=== PATIENT | female | born 1955 | race Caucasian/White ===

== ENCOUNTER 2016-10-29 11:24 | Emergency (ER) | payer MEDICAID, MEDICARE ==
[2016-10-29] MEDS: NALOXONE 0.4 MG/1 ML VIAL IVP STA (11:47)
--- NOTE | 2016-10-29 11:47 | Emergency Department Record ---
History of Present Illness - General Chief Complaint: Altered Mental Status Stated Complaint: DECREASE LOC Time Seen by Provider: 10/29/16 11:32 Source: Patient, Family, EMS Mode of Arrival: EMS Limitations: No limitations - History of Present Illness Initial Comments: 61 yo female presents with decreased level of consciousness. Onset time is not known at this time. The patient's significant other states he woke up around 5: 50am. The patient was in her LazyBoy and grunted a few times. The significant other thought she was sleepy. He rechecked her around 9:30am. She was banging her remote on the chair for attention. She was not verbal. She was reported as last normal last night. She did not use her CPAP last night. Her PCP is Shea Barraza at [facility]. Her Accucheck was 219 by EMS. She is on [place]. No report of OD. MD Complaint: Altered mental status -: Awoke with symptoms Severity: Severe Consistency: Constant Context: Unknown Associated Symptoms: Other (Non verbal) - Paloma Coma Scale Eye Response: (2) Open to pain Motor Response: (5) Localizes to pain Verbal Response: (2) Incomprehsible sounds Lulú Total: 9 (Intact gag, non labored) - Symptoms of Stroke Symptom Onset Unknown: No - Related Data Home Medications Medication Instructions Recorded Confirmed Last Taken Aspirin [Ecotrin] 81 mg PO DAILY 07/02/15 10/29/16 1 Day Ago Ergocalciferol (Vitamin D2) 2,000 unit PO DAILY tab 11/04/15 10/29/16 1 Day Ago [Vitamin D2] Hydroxyzine Pamoate [Vistaril] 25 mg PO Q6H cap NS 05/04/16 10/29/16 1 Day Ago Metoprolol Succinate [Toprol Xl] 25 mg PO QD tab 05/04/16 10/29/16 1 Day Ago Previous Rx's Medication Instructions Recorded Bumetanide 2 mg PO DAILY #90 tablet 07/02/15 Allergies Allergy/AdvReac Type Severity Reaction Status Date / Time No Known Allergies Allergy Unverified 07/26/16 12:53 Review of Systems ROS unobtainable: Due to mental status Past Medical History - SOCIAL HISTORY Smoking Status: Former smoker - RESPIRATORY Hx Respiratory Disorders: No - CARDIOVASCULAR Hx Cardio Disorders: No - NEURO Hx Neuro Disorders: No - GI Hx GI Disorders: No - Hx Genitourinary Disorders: No - ENDOCRINE Hx Endocrine Disorders: Yes Hx Diabetes: Yes Hx Thyroid Disease: Yes - MUSCULOSKELETAL Hx Musculoskeletal Disorders: Yes Hx Back Injury: Yes - PSYCH Hx Psych Problems: No - HEMATOLOGY/ONCOLOGY Hx Hematology/Oncology Disorders: Yes Hx Blood Disorders: Yes (low platelette) Hx Bruising: Yes Family Medical History Hx Cancer: Mother Hx Heart Disease: Father Physical Exam - General General Appearance: No acute distress, Other (No verbal or moans) Limitations: Altered mental status - Head Head exam: Atraumatic, Normocephalic, Normal inspection Head exam detail: negative: Contusion, Aaron's sign, General tenderness, Hematoma - Eye Eye exam: PERRL. negative: Conjunctival injection, Periorbital swelling, Scleral icterus Pupils: Miosis (2mm but not pin point). negative: Irregular - ENT ENT exam: Normal exam, Mucous membranes moist, Normal external ear exam, Normal orophraynx, TM's normal bilaterally Ear exam: Normal external inspection. negative: External canal tenderness Nasal Exam: Normal inspection. negative: Discharge, Sinus tenderness Mouth exam: Normal external inspection, Tongue normal Teeth exam: Normal inspection. negative: Dental caries Throat exam: Normal inspection, Other (Intact gag). negative: Tonsillar erythema, Tonsillar exudate - Neck Neck exam: Normal inspection, Full ROM. negative: Meningismus, Tenderness - Respiratory Respiratory exam: Normal lung sounds bilaterally, Other (respirations are generally non labored). negative: Accessory muscle use, Prolonged expiratory, Respiratory distress, Wheezes - Cardiovascular Cardiovascular Exam: Regular rate, Normal rhythm, Normal heart sounds - GI/Abdominal GI/Abdominal exam: Soft, Other (Morbid obesity). negative: Distended, Guarding - Rectal Rectal exam: Deferred - exam: Abnormal external exam, Other (no swelling or erythema) - Extremities Extremities exam: Normal inspection, Full ROM, Normal capillary refill. negative: Tenderness - Neurological Neurological exam: Altered. negative: Alert, Motor sensory deficit ( Generalized weakness, she withdraws to pain in all 4 extremities, gaze is symmetric, tongue is midline, gag is intact, cough is intact), Normal gait, Oriented X3 - Psychiatric Psychiatric exam: Depressed. negative: Agitated, Anxious, Normal affect, Normal mood - Skin Skin exam: Other (chronic skin changes of the abdomen due to large panus and chronic stasis changes of the legs, no visiblle cellulitis). negative: Cyanosis , Diaphoretic, Erythema, Mottled Course - Reevaluation(s) Reevaluation #1: Accu Check 219 prior to arrival Gag intact but poorly responsive Narcan ordered Oxygen 99% room air Orders placed Unknown onset time per family with the patient. 10/29/16 11:48 Reevaluation #2: CBC and UA reviewed. NO acute changes Patient is in CT. Some delay due to AMS and large body habitus. EKG 11:38 NSR rate 95, intervals QT 506, ST no acute changes. 10/29/16 12:07 ABG 7.43 PCO2 33 PO2 97 Lactic acid 6.2 CR 1.8 98.4 Temp No response to Narcan 10/29/16 12:17 Reevaluation #3: I [facility]EENA Radiology. No acute findings on the CT scan. [facility] will be call for transfer for Neuro evaluation. 10/29/16 12:29 Reevaluation #4: On exam non verbal Coughs and protects airway with gag. Stroke Dr Gifford paged by [facility]. 10/29/16 12:33 Reevaluation #5: I BEENA Gifford and Dr Metzger of [facility] They accept ER to ER The patient is protecting her airway at this time with cough and gag I discussed risk and benefits of transfer with or without EET Given she had demonstrated stability and she is protected airway she will go ACLS This will allow Stroke to complete a full neuro examination Family agrees. 10/29/16 12:51 The patient was given a bed at [facility] in the ICU Report called TSH 1.7 10/29/16 13:30 10/29/16 13:51 Medical Decision Making - Lab Data Result diagrams: 10/29/16 10:57 10/29/16 10:57 Critical Care Time Critical Care Time: Yes Total Critical Care Time: 60 Disposition Disposition: Transfer Clinical Impression: Encephalopathy acute Altered mental status, unspecified Qualifiers: Altered mental status type: stupor Qualified Code(s): R40.1 - Stupor Disposition: Acute Care Hospital Transfer Transfer To: [facility] Reason For Transfer: AMS, Encephalopathy Accepting Physician: Domenica Time Discussed w/Accepting Physician: 12:50 Condition: (3) Guarded Forms: Patient Portal Access Time of Disposition: 12:51
[2016-10-29 11:56] LABS: BASO % 0.8 % (0-6); EOS % 3.3 % (0-6); GRAN % 60.2 % (47-80); HEMATOCRIT 33.6 % (35.0-47.0); HEMOGLOBIN 11.1 gm/dl (11.6-16.0); MEAN CELL VOLUME 87.7 fl (81-97); MEAN PLATELET VOLUME 12.5 fl (7.4-10.4); MONO % 8.7 % (0-9); RED BLOOD COUNT 3.83 M/uL (3.80-5.40); RED CELL DISTRIBUTION WIDTH 14.8 % (11.5-14.5); URINE APPEARANCE CLEAR; URINE BILIRUBIN NEGATIVE (NEGATIVE); URINE BLOOD MODERATE (NEGATIVE); URINE COLOR YELLOW; URINE GLUCOSE (UA) NEGATIVE (NEGATIVE); URINE KETONE NEGATIVE (NEGATIVE); URINE LEUKOCYTE ESTERASE NEGATIVE (NEGATIVE); URINE NITRITE NEGATIVE (NEGATIVE); URINE PROTEIN NEGATIVE (NEGATIVE); WHITE BLOOD COUNT W/O DIFF 4.9 K/uL (4.2-12.2)
[2016-10-29 12:02] LABS: MEAN CORPUSCULAR HEMOGLOBIN 28.9 pg (27-33); PLATELET COUNT 57 K/uL (130-400)
[2016-10-29 12:05] LABS: URINE BACTERIA FEW; URINE RBC >50 (NONE SEEN); URINE WBC 0 - 2 (0-2/hpf)
[2016-10-29 12:05] LABS: ARTERIAL BLD GAS O2 SATURATION 98.3 % (95-98); ARTERIAL BLOOD GAS BASE EXCESS -1.2 mmol/L (-2 - 3); ARTERIAL BLOOD GAS HCO3 22.1 mmol/L (18-23); ARTERIAL BLOOD GAS PCO2 33.6 mmHg (35-48); ARTERIAL BLOOD GAS pH 7.43 (7.35-7.45); CARBOXYHEMOGLOBIN 0.8 % (0-1.5); METHEMOGLOBIN 0.6 % (0.0-1.5); O2 HEMOGLOBIN 96.9 % vol (94-99); TOTAL HEMOGLOBIN 11.4 g/dl (11.6-16)
[2016-10-29 12:07] LABS: ALLEN TEST NOT DONE
[2016-10-29 12:09] LABS: LACTIC ACID 6.2 mmol/L (0.7-2.1)
[2016-10-29 12:10] LABS: ALB/GLOB RATIO 1.3 (1.1-1.8); ALBUMIN 3.6 gm/dL (3.5-5.0); ANION GAP 15.2 (7-16); BILIRUBIN,TOTAL 1.21 mg/dL (0.2-1.3); CARBON DIOXIDE 22.8 mmol/L (22-30); CREATININE 1.8 mg/dL (0.52-1.04); TOTAL PROTEIN 6.3 gm/dL (6.3-8.2)
[2016-10-29 12:23] LABS: CKMB 0.3 ug/L (0-6); CREATINE PHOSPHOKINASE 46 U/L (30-135)
[2016-10-29 12:24] LABS: TROPONIN I < 0.012 ng/mL (0.00-0.034)
[2016-10-29] MEDS: 0.9 % SODIUM CHLORIDE 1,000 ML BAG IV ONE (12:26)
[2016-10-29] MEDS: NALOXONE HCL 1 MG/ML SYR IVP ONE (12:32)
[2016-10-29 12:35] LABS: INR 1.12; PARTIAL THROMBOPLASTIN TIME 19.7 SECONDS (24.5-39.1); PROTHROMBIN TIME (PATIENT) 12.7 SECONDS (9.5-12.1)
[2016-10-29 12:41] LABS: THYROID STIMULATING HORMONE 1.73 uIU/ml (0.465-4.68)
--- NOTE | 2016-11-02 09:57 | CT SCAN REPORT ---
EXAM: CT OF THE HEAD WITHOUT CONTRAST HISTORY: PATIENT FOUND UNRESPONSIVE. POOR HISTORIAN. TECHNIQUE: Routine noncontrast CT examination of the head was performed. Comparison: CT of the head without contrast dated 05/17/14. FINDINGS: The examination is mildly limited by increased image noise. There is mild dilatation of the subarachnoid spaces consistent with mild age related atrophy. The ventricles are not enlarged. No new area of abnormally increased or decreased attenuation is noted throughout the brain substance. No abnormal extraaxial fluid collection nor skull fracture is seen. There is mucosal thickening in several ethmoid air cells. In addition, there is opacification of a single posterior superior right ethmoid air cell measuring 12 x 10 mm. This air cell appears slightly expanded. This may relate to mucocele, polyp or sinusitis. The orbits as visualized are unremarkable. Metallic piercing jewelry is noted in the superolateral left periorbital region. IMPRESSION: 1. NO CT EVIDENCE OF ACUTE MAJOR VESSEL INFARCT, INTRACRANIAL HEMORRHAGE, MASS , NOR SKULL FRACTURE. 2. INFLAMMATORY CHANGES SCATTERED WITHIN SEVERAL ETHMOID AIR CELLS. 3. OPACIFICATION OF A RIGHT ETHMOID AIR CELL WHICH MAY BE SLIGHTLY EXPANDED. DIAGNOSTIC CONSIDERATIONS INCLUDE SINUSITIS, MUCOCELE, OR LESS LIKELY POLYP. JOB NUMBER: [id number] [facility]
== END 2016-10-29 13:11 | disposition short-term general hospital (02) ==
LOC: ER 11:24
DX: G93.40 Encephalopathy, unspecified (principal); R40.1 Stupor; R53.1 Weakness; E11.9 Type 2 diabetes mellitus without complications; D69.6 Thrombocytopenia, unspecified; E07.9 Disorder of thyroid, unspecified
CPT/HCPCS: 96376; 99291 ×2; 96374; 82550; 83605; 83735; 85025; 85730; 85610; 82375; 82553; 84484; 80053; 81001; 82803; 84443; 70450; 36600; 93005; 93010; G0480; 80320; J2310; J7030

== ENCOUNTER 2017-02-10 08:29 | Day surgery (SDC) | payer MEDICARE ==
[2017-02-10] MEDS ORDERED: LIDOCAINE 2% MDV (20MG/ML) 20ML VIAL IV ONE (14:00)
[2017-02-10] MEDS ORDERED: MIDAZOLAM HCL 2MG/2ML VIAL IV ONE (14:00)
[2017-02-10] MEDS ORDERED: PROPOFOL 10 MG/ML VIAL IV ONE (14:00)
[2017-02-10] MEDS ORDERED: FENTANYL PF 100MCG/2ML VIAL IV ONE (14:00)
--- NOTE | 2017-02-12 12:02 | Operative Note ---
DATE OF SURGERY: 02/10/17 OPERATION: COLONOSCOPY with cold snare polypectomy x2 and hemoclip x1 to rectal polypectomy site. #. Duodenal ulcer with surrounding superficial duodenal ulcerations. #. Portal gastropathy. #. Small esophageal varices. #. Gastritis. PROCEDURE: After informed consent was obtained from the patient, she was placed in the left lateral decubitus position in the endoscopy suite, sedated and monitored by the department of anesthesia. A well-lubricated [id number] gastroscope was placed in the posterior oropharynx and under direct visualization passed to the proximal esophagus. The endoscope was advanced through the proximal, mid, and distal esophagus. There were small varices in the distal esophagus. No stigmata of recent hemorrhage noted. There were 3-4 columns noted. The gastric body demonstrated normal distensibility. There were flecks of heme and changes consistent with mild portal hypertensive gastropathy and gastritis. No ulcers or mass lesions were seen. The duodenal bulb and sweep were inspected. At the apex of the bulb, there was a medium- to large-sized ulcer of medium depth and surrounding erythematous edges. There were also several other superficial duodenal bulb ulcerations. No active blood or fresh stigmata of recent hemorrhage identified. The duodenal sweep is unremarkable. J-turn views of the proximal stomach demonstrated portal gastropathy and gastritis. No obvious cardia or fundal varices were readily identified. The endoscope was then straightened. No biopsies were obtained given the patient's history of thrombocytopenia. Digital rectal exam was unremarkable. A well-lubricated [id number] colonoscope was inserted into the rectum and advanced to the cecum. Preparation was fair to good. The cecum was unremarkable. There was a 4 mm sessile polyp in the ascending colon removed with a cold snare with minimal bleeding noted at the site. The remainder of the ascending colon, transverse colon, descending colon, and sigmoid colon were unremarkable. There was a 4-5 mm sessile polyp in the rectum removed with a cold snare. There was a small amount of oozing at the site ; however, a hemoclip was applied to the site. There was no persistent bleeding noted after that. The remainder of the rectum was unremarkable in forward and in J-turn views. The endoscope was straightened, the rectal ampulla deflated, and the endoscope was removed. RECOMMENDATIONS: The patient should start a proton pump inhibitor such as Protonix 40 mg daily. I will have her undergo stool tests for H pylori. She should undergo repeat upper endoscopy in 1 year and will require repeat colonoscopy in 3-5 years. As always, thank you for allowing me to participate in the healthcare of your patients. CC: MARQUITA Godoy
== END 2017-02-10 10:46 | disposition home or self-care (01) ==
LOC: HOP 08:29
PROVIDERS: ATTEND Internal Medicine Gastroenterology
DX: Z86.010 Personal history of colon polyps (principal); D12.8 Benign neoplasm of rectum; K63.5 Polyp of colon; K29.70 Gastritis, unspecified, without bleeding; K26.9 Duodenal ulcer, unspecified as acute or chronic, without hemorrhage or perforation; K31.9 Disease of stomach and duodenum, unspecified; R56.9 Unspecified convulsions; E11.9 Type 2 diabetes mellitus without complications; I10 Essential (primary) hypertension; E03.9 Hypothyroidism, unspecified; E78.00 Pure hypercholesterolemia, unspecified
CPT/HCPCS: 45385; 43235; 00810; 88305; J3010

== ENCOUNTER 2017-04-11 14:53 | Inpatient (IN) | payer MEDICARE ==
--- NOTE | 2017-04-11 15:08 | Emergency Department Record ---
History of Present Illness - General Chief complaint: Lower Extremity Pain Stated complaint: LEG PAIN AND SWELLING Time Seen by Provider: 04/11/17 14:58 Source: Patient Mode of Arrival: Ambulatory Limitations: No limitations - History of Present Illness Initial comments: 62 yo female presents with right leg swelling, redness that started on Tuesday. She denies trauma. She does have chronic swelling of both legs but this swelling is beyond the normal. She was recently hospitalized at [facility] for issues related to her chronic hepatic and renal disease. No fevers. No cough, chest pain or shortness of breath. MD Complaint: Extremity pain, Extremity swelling -: Days(s) (3) Location: Right History of Same: Yes Radiation: Distal (lateral) Quality: Aching Consistency: Constant Improves with: Nothing Worsens with: Nothing, Other (She is able to ambulate on the leg) - Related Data Home Medications Medication Instructions Recorded Confirmed Last Taken Aspirin [Ecotrin] 81 mg PO DAILY 07/02/15 04/11/17 1 Day Ago ~10/28/16 Ergocalciferol (Vitamin D2) 2,000 unit PO DAILY tab 11/04/15 04/11/17 1 Day Ago [Vitamin D2] ~10/28/16 Allergies Allergy/AdvReac Type Severity Reaction Status Date / Time No Known Allergies Allergy PT UNSURE Unverified 04/11/17 14:16 OF REACTION Review of Systems Constitutional: Denies: Chills, Fever, Malaise, Weakness Eyes: Denies: Eye discharge ENT: Denies: Congestion, Throat pain Respiratory: Denies: Cough, Dyspnea, Hemoptysis, Stridor, Wheezes Cardiovascular: Denies: Chest pain, Palpitations, Syncope Endocrine: Denies: Fatigue Gastrointestinal: Denies: Abdominal pain, Diarrhea, Nausea, Vomiting Genitourinary: Denies: Dysuria, Urgency Musculoskeletal: Denies: Arthralgia, Back pain, Joint swelling, Neck pain Skin: Reports: Change in color Neurological: Denies: Headache, Numbness, Vertigo, Weakness Psychiatric: Denies: Anxiety Hematological/Lymphatic: Denies: Easy bleeding, Easy bruising, Swollen glands Past Medical History - SOCIAL HISTORY Smoking Status: Former smoker - RESPIRATORY Hx Respiratory Disorders: Yes Hx Sleep Apnea: Yes Hx of CPAP: Yes - CARDIOVASCULAR Hx Cardio Disorders: Yes Hx Cardiac Cath: Yes Hx Hypertension: Yes Hx Palpitations: Yes ("racing heart") Comment:: high cholesterol - NEURO Hx Neuro Disorders: Yes Hx Neuropathy: Yes Hx Seizures: Yes - GI Hx GI Disorders: Yes Hx Liver Disease: Yes (fatty liver) Hx of Polyps: Yes - Hx Genitourinary Disorders: No - ENDOCRINE Hx Endocrine Disorders: Yes Hx Diabetes: Yes Hx Thyroid Disease: Yes - MUSCULOSKELETAL Hx Musculoskeletal Disorders: Yes Hx Arthritis: Yes Hx Back Injury: Yes Comment:: spinal stenosis, herniated disk lower lumbar - PSYCH Hx Psych Problems: Yes Hx Anxiety: Yes - HEMATOLOGY/ONCOLOGY Hx Hematology/Oncology Disorders: Yes Hx Blood Disorders: Yes (low platelet) Hx Bruising: Yes Hx Blood Transfusions: No Family Medical History Hx Cancer: Mother Hx Heart Disease: Father Physical Exam - General General Appearance: Alert, Oriented x3, Cooperative, No acute distress Limitations: No limitations - Head Head exam: Normal inspection - Eye Eye exam: Normal appearance, PERRL. negative: Conjunctival injection, Scleral icterus - ENT ENT exam: Normal exam Ear exam: Normal external inspection Nasal Exam: Normal inspection Mouth exam: Normal external inspection Teeth exam: Normal inspection - Neck Neck exam: Normal inspection, Full ROM. negative: Tenderness - Respiratory Respiratory exam: Normal lung sounds bilaterally. negative: Respiratory distress, Rhonchi, Stridor, Wheezes - Cardiovascular Cardiovascular Exam: Regular rate, Normal rhythm, Normal heart sounds - GI/Abdominal GI/Abdominal exam: Soft. negative: Tenderness - Rectal Rectal exam: Deferred - exam: Deferred - Extremities Extremities exam: Calf tenderness, Normal capillary refill, Pedal edema, Tenderness. negative: Normal inspection Image of Full Body: 1 - mid to distal RLE warmth, redness, swelling, no draingage, intact foot flexion and extension without pain, no blisters, chronic changes of edema and stasis as well. No blisters. - Back Back exam: Denies: CVA tenderness (R), CVA tenderness (L) - Neurological Neurological exam: Alert, Oriented X3 - Psychiatric Psychiatric exam: negative: Agitated, Anxious - Skin Skin exam: Erythema Course - Reevaluation(s) Reevaluation #1: Vitals reviewed No fever, tachycardia, hypoxia 04/11/17 15:04 04/11/17 16:54 Prelim US negative. Will review the final as well. Reevaluation #2: Multiple attempts by multiple staff for labs and IV attempted without success. I did discuss the options with Dr Montez. [facility] has a contract for PICC line services. They will be contacted. The patient is stable for IM medications as a bridge until PICC line is established. She will be admitted for continued antibiotics until improved. No fever, no tachycardia. 04/11/17 17:39 Reevaluation #3: The hospital PICC line service was contacted and will provide the service. They will call back with a time frame available. In the meantime, the patient will be admitted with orders for IM Clindamycin Qh8 until PICC line is established. 04/11/17 17:56 04/11/17 17:58 Reevaluation #4: Accu Check is 94 04/11/17 18:09 Medical Decision Making - Lab Data Result diagrams: 04/11/17 14:58 04/11/17 14:58 Disposition Disposition: Admit Clinical Impression: Cellulitis Qualifiers: Site of cellulitis: extremity Site of cellulitis of extremity: lower extremity Laterality: right Qualified Code(s): L03.115 - Cellulitis of right lower limb Disposition: Still a Patient at [facility] Decision to Admit: Admit from ER Decision to Admit Date: 04/11/17 Decision to Admit Time: 17:43 Condition: (2) Stable Forms: Patient Portal Access Time of Disposition: 17:43
[2017-04-11] MEDS ORDERED: CLINDAMYCIN 600MG/4ML VIAL 600 MG in 0.9 % SODIUM CHLORIDE 100ML 100 ML IV ONE (17:56)
[2017-04-11] MEDS ORDERED: METOPROLOL SUCC 25 MG TAB.ER PO SCH (19:50)
[2017-04-11] MEDS ORDERED: NYSTATIN 15 GM TUBE TOP PRN (19:50)
[2017-04-11] MEDS: CLINDAMYCIN 600MG/4ML VIAL 600 MG in 0.9 % SODIUM CHLORIDE 100ML 100 ML IV SCH ×2 (19:56→20:24)
[2017-04-11] MEDS: LEVETIRACETAM 500 MG TABLET PO SCH (21:20)
[2017-04-11] MEDS: ATORVASTATIN 20 MG TABLET PO SCH (21:21)
[2017-04-11] MEDS: DICLOFENAC SODIUM 4 GM TP SCH (21:21)
[2017-04-11] MEDS: HYDROXYZINE PAMOATE 25 MG CAPSULE PO SCH (21:22)
[2017-04-11] MEDS: RIFAXIMIN 550 MG TABLET PO SCH (21:22)
[2017-04-11] MEDS: GABAPENTIN 300 MG CAPSULE PO SCH (21:22)
[2017-04-11] MEDS: OXYCODONE HCL 5 MG TABLET PO PRN (21:23)
[2017-04-11] MEDS: LEVEMIR FLEXTOUCH 100 UNIT/ML INSULIN PEN SQ SCH (21:34)
[2017-04-11] MEDS ORDERED: LACTULOSE 20 GM/30 ML UDC PO SCH (22:00)
[2017-04-11] MEDS ORDERED: ZINC OXIDE 28.35 GM TUBE TOP PRN (22:44)
[2017-04-12] MEDS ORDERED: CLINDAMYCIN 600MG/4ML VIAL 600 MG in 0.9 % SODIUM CHLORIDE 100ML 100 ML IV SCH (02:00)
[2017-04-12] MEDS: HEPARIN SODIUM FLUSH 100 UNITS/ML SYR 5ML IVP PRN ×4 (04:02→20:19)
[2017-04-12] MEDS: 0.9 % SODIUM CHLORIDE 10ML SYR IVP PRN ×5 (04:03→20:19)
[2017-04-12] MEDS: LEVOTHYROXINE SODIUM 75 MCG TABLET PO SCH (06:42)
[2017-04-12] MEDS ORDERED: LACTULOSE 20 GM/30 ML UDC PO SCH ×3 (07:00→12:00)
--- NOTE | 2017-04-12 07:06 | History & Physical ---
History of Present Illness - Date of Service Date of Service for History & Physical: 04/12/17 - History of Present Illness Admitting Diagnosis: right leg cellulitis History of Present Illness: 62yo female with CC of right lower extremity redness and swelling. She has a history of ODEN one episode of toxic metabolic encephalopathy that lead to seizure in October of 2016, T2DM, chronic ITP, CKD stage 3, chronic lower extremity edema, morbid obesity, osteoarthritis b/l knee, chronic lower back pain. Patient presented to the ED after 36 hours of right lower extremity redness and swelling. She says it started Tuesday morning and got progressively worse. Was not painful to walk on but was tender to the touch. Her home care nurse noted it and recommended she go to [facility] to be evaluated. They sent her over to ED to further evaluate possibility of a DVT. While in the ED, patient underwent venous doppler that was negative for DVT. ED was unable to gain venous access for labs after multiple attempts. Patient was afebrile with normal HR and BP. She was started on Clindamyacin IM and PICC line was ordered. She was admitted for RLE cellulitis 04/12/17- Patient states her leg is doing much better today. She says the redness has decreased significantly in size. The leg is no longer tender to palpation as it had been. She denies trauma to the leg but does have chronic pedal edema. Just got orders for tubigrips via home health care but did not have a chance to start wearing them. She denies fevers, chills, N/V, fatigue. Last bout of cellulitis was also in the RLE about 15 months ago. PCP: [facility] Screening - Travel/Exposure Within Last 30 Days Have you traveled within the last 30 days?: No - Travel/Exposure Within Last Year Have you traveled outside the [place] in the last year?: No Review of Systems Constitutional: Denies: Chills, Fever, Malaise, Weakness Eyes: Denies: Eye discharge ENT: Denies: Congestion, Throat pain Respiratory: Denies: Cough, Dyspnea, Hemoptysis, Stridor, Wheezes Cardiovascular: Denies: Chest pain, Palpitations, Syncope Endocrine: Denies: Fatigue Gastrointestinal: Denies: Abdominal pain, Diarrhea, Nausea, Vomiting Genitourinary: Denies: Dysuria, Urgency Musculoskeletal: Denies: Arthralgia, Back pain, Joint swelling, Neck pain Skin: Reports: Change in color Neurological: Denies: Headache, Numbness, Vertigo, Weakness Psychiatric: Denies: Anxiety Hematological/Lymphatic: Denies: Easy bleeding, Easy bruising, Swollen glands Past Medical History - SOCIAL HISTORY Smoking Status: Former smoker Alcohol Use: None Drug Use: None - RESPIRATORY Hx Respiratory Disorders: Yes Hx Sleep Apnea: Yes Hx of CPAP: Yes - CARDIOVASCULAR Hx Cardio Disorders: Yes Hx Abnormal EKG: Yes Hx Cardiac Cath: Yes Hx Chest Pain: Yes Hx CHF: No Hx Deep Vein Thrombosis: No Hx Edema: Yes Hx Heart Attack: No Hx Hypertension: Yes Hx Irregular Heartbeat: Yes Hx Palpitations: Yes ("racing heart") Hx Pacemaker/Defib: No Hx Vascular Disease: Yes Comment:: high cholesterol - NEURO Hx Neuro Disorders: Yes Hx Neuropathy: Yes Hx Seizures: Yes - GI Hx GI Disorders: Yes Hx Hiatal Hernia: (umbilibal hernia) Hx Liver Disease: Yes (fatty liver) Hx Ulcer: Yes Hx Wt Loss/Wt Gain: Yes Hx of Polyps: Yes - Hx Genitourinary Disorders: No Hx Renal Disease: Yes Hx UTI: Yes - ENDOCRINE Hx Endocrine Disorders: Yes Hx Diabetes: Yes Hx Thyroid Disease: Yes - MUSCULOSKELETAL Hx Musculoskeletal Disorders: Yes Hx Arthritis: Yes Hx Back Injury: Yes Comment:: spinal stenosis, herniated disk lower lumbar - PSYCH Hx Psych Problems: Yes Hx Anxiety: Yes - HEMATOLOGY/ONCOLOGY Hx Hematology/Oncology Disorders: Yes Hx Blood Disorders: Yes (low platelet) Hx Bruising: Yes Hx Blood Transfusions: No Family Medical History Any Significant Family History?: Yes Hx Alcohol Use: Father, Mother, Brother/Sister Hx Cancer: Mother, Brother/Sister Hx Depression: Father, Mother Hx Diabetes: Brother/Sister Hx Heart Disease: Father Hx HTN: Father, Mother, Children, Brother/Sister Hx Liver Disease: Brother/Sister Hx Stroke: Grandparents H&P Meds/Allergies - Allergies Allergies: Allergies Allergy/AdvReac Type Severity Reaction Status Date / Time No Known Allergies Allergy PT UNSURE Unverified 04/11/17 14:16 OF REACTION - Home Medications Home Medications Medication Instructions Recorded Confirmed Last Taken Aspirin [Ecotrin] 81 mg PO QHS 07/02/15 04/11/17 1 Day Ago ~10/28/16 Ergocalciferol (Vitamin D2) 2,000 unit PO DAILY tab 11/04/15 04/11/17 1 Day Ago [Vitamin D2] ~10/28/16 - Active Medications Active Medications: Current Medications Aspirin (Ecotrin (Ec)) 81 mg PO DAILY [facility] Atorvastatin Calcium (Lipitor) 40 mg PO QHS [facility] Last Admin: 04/11/17 21:21 Dose: 40 mg Bumetanide (Bumex) 2 mg PO DAILY [facility] Gabapentin (Neurontin) 300 mg PO TID [facility] Last Admin: 04/11/17 21:22 Dose: 300 mg Heparin Sodium (Porcine) () 500 unit IVP ASDIR PRN PRN Reason: IV FLUSH Last Admin: 04/12/17 04:02 Dose: 500 unit Hydroxyzine Pamoate (Vistaril) 25 mg PO TID [facility] Last Admin: 04/11/17 21:22 Dose: Not Given Clindamycin Phosphate 600 mg/ (Sodium Chloride) 104 mls @ 200 mls/hr IV Q8H [facility] Stop: 04/17/17 02:01 Last Infusion: 04/12/17 03:50 Dose: Infused Insulin Detemir (Levemir Flextouch) 74 unit SQ Q24H [facility] Last Admin: 04/11/17 21:34 Dose: 74 unit Lactulose (Lactulose) 30 gm PO ASDIR [facility] Levetiracetam (Keppra) 1,000 mg PO Q12H [facility] Last Admin: 04/11/17 21:20 Dose: 1,000 mg Levothyroxine Sodium (Synthroid) 75 mcg PO DAILYTHY [facility] Last Admin: 04/12/17 06:42 Dose: 75 mcg Metoprolol Succinate (Toprol Xl) 25 mg PO QD [facility] Non-Formulary Medication (Diclofenac Sodium [Voltaren]) 4 gm TP QID [facility] Last Admin: 04/11/17 21:21 Dose: Not Given Nystatin () 15 gm TOP BID PRN PRN Reason: RASH Oxycodone HCl (Oxy Ir) 5 mg PO TID PRN PRN Reason: Pain - General Last Admin: 04/11/17 21:23 Dose: 5 mg Sodium Chloride () 10 ml IVP Q12H PRN PRN Reason: IV FLUSH Last Admin: 04/12/17 04:03 Dose: 10 ml Vitamin D (Vitamin D3) 2,000 unit PO DAILY [facility] Zinc Oxide (Desitin) 28.35 gm TOP Q2HR PRN PRN Reason: RASH Physical Exam - Vital Signs Vital Signs: Vital Signs - Last 24 Hrs Temp Pulse Resp BP Pulse Ox 04/12/17 01:55 98.5 F 63 16 110/50 97 04/11/17 21:00 16 04/11/17 19:50 98.1 F 70 20 132/50 99 - General General Appearance: Alert, Oriented x3, Cooperative, No acute distress Limitations: No limitations - Head Head exam: Normal inspection - Eye Eye exam: Normal appearance, PERRL. negative: Conjunctival injection, Scleral icterus - ENT ENT exam: Normal exam Ear exam: Normal external inspection Nasal Exam: Normal inspection Mouth exam: Normal external inspection Teeth exam: Normal inspection - Neck Neck exam: Normal inspection, Full ROM. negative: Tenderness - Respiratory Respiratory exam: Normal lung sounds bilaterally. negative: Respiratory distress, Rhonchi, Stridor, Wheezes - Cardiovascular Cardiovascular Exam: Regular rate, Normal rhythm, Normal heart sounds - GI/Abdominal GI/Abdominal exam: Soft. negative: Tenderness - Rectal Rectal exam: Deferred - exam: Deferred - Extremities Extremities exam: Normal capillary refill, Pedal edema (2+), Tenderness (to deep palpation of the right lower extremity ). negative: Normal inspection - Back Back exam: Denies: CVA tenderness (R), CVA tenderness (L) - Neurological Neurological exam: Alert, Oriented X3 - Psychiatric Psychiatric exam: negative: Agitated, Anxious - Skin Skin exam: Erythema (receded within marking from yesterday), Intact Results - Labs Result Diagrams: 04/12/17 09:10 04/12/17 09:10 Labs Last 24 Hours: Laboratory Results - last 24 hr 04/11/17 04/11/17 21:25 22:00 POC Glucose 183 H Cancelled - Imaging and Cardiology Venous US Status: Report reviewed (negative for DVT) VTE H&P Assessment - Risk for VTE Risk for VTE: Yes Risk Level: High Risk Assessment Date: 04/12/17 Risk Assessment Time: 20:52 VTE Orders Placed or Will Be Placed: No VTE Reason for No Prophylaxis: Contraindicated (platelet count of 51) Plan - Inpatient Certification Inpatient Certification: Admit to inpatient care: Based on my medical assessment, after consideration of patient's risk factors (age, co-morbidities and patient presenting symptoms and acuity), I expect that this patient will remain in the hospital greater than or equal to two midnights and that the services needed warrant inpatient care because: Patient Risk Factors: [age, RLE cellulitis, T2DM, CKD stage 3, ODEN] Estimated length of stay: [48-72H] The patient may reasonably be expected to be discharged or transferred to a hospital within 96 hours after admission to [facility]. Services needed: [IV abx] Post hospital care (if known): [] I certify that my determination is in accordance with my understanding of Medicare requirements for reasonable and necessary inpatient services. 04/12/17 07:04 - Detailed Diagnosis and Plan (1) Cellulitis Current Visit: Yes Status: Acute Qualifiers: Site of cellulitis: extremity Site of cellulitis of extremity: lower extremity Laterality: right Qualified Code(s): L03.115 - Cellulitis of right lower limb Base Code: L03.90 - CELLULITIS, UNSPECIFIED Comment: 04/12/17- Improved significantly from yesterday. Venous doppler negative for DVT. Unable to obtain access for labs while in ED. PICC line was placed last night and labs obtained this am show wbc count at 3.0 and CRP of 5.7 patient remains afebrile with normal BP and HR. -continue clindamyacin 600mg IV q8H via PICC -vitals q8H -repeat labs qam now that PICC in place -outpatient surgical consult for a port placement (2) T2DM (type 2 diabetes mellitus) Current Visit: Yes Status: Acute Qualifiers: Diabetes mellitus complication status: with kidney complications Diabetes mellitus complication detail: with chronic kidney disease Diabetes mellitus manager long term care insulin use: with manager long term care use Chronic kidney disease stage: stage 3 (moderate) Qualified Code(s): E11.22 - Type 2 diabetes mellitus with diabetic chronic kidney disease; N18.3 - Chronic kidney disease, stage 3 ( moderate); Z79.4 - MCFP (current) use of insulin Base Code: E11.9 - TYPE 2 DIABETES MELLITUS WITHOUT COMPLICATIONS Comment: - Last A1C in December. -continue home insulin dosing -ADA diet -Accucheck QID (3) ODEN (nonalcoholic steatohepatitis) Current Visit: Yes Status: Acute Base Code: K75.81 - NONALCOHOLIC STEATOHEPATITIS (ODEN) Comment: 04/12/17- stable. Follows with [facility]. Carvajal. -continue home lactulose dosing- 30ml 6am; 45ml at noon; 30ml 6pm -continue xifaxin 550mg po bid -continue monitoring stool output (goal 2-3 soft stools daily) -add miralax for constipation (4) Full code status Current Visit: Yes Status: Acute Base Code: Z78.9 - OTHER SPECIFIED HEALTH STATUS Comment: 04/12/17- patient is full code (5) DVT prophylaxis Current Visit: Yes Status: Acute Base Code: [id number] - Comment: 04/12/17- patient is high risk with age, morbid obesity , and restricted mobility. lovenox contraindicated wtih platelet count of 51 2/2 chronic ITP -add SCD's while in bed -encourage ambulation
[2017-04-12] MEDS: LACTULOSE 20 GM/30 ML UDC PO SCH ×2 (08:14→19:22)
[2017-04-12] MEDS: POLYETHYLENE GLY 17 GM PACKET PO SCH ×2 (08:20→10:19)
--- NOTE | 2017-04-12 09:00 | RADIOLOGY REPORT ---
EXAM: CHEST AP or PA ONLY HISTORY: PIC LINE PLACEMENT. TECHNIQUE: A single mobile semi-erect view of the chest is obtained. COMPARISON: Two-view chest radiographic examination dated 11/08/16. FINDINGS: There has been interval placement of a left upper extremity PIC, the tip of which is in the mid SVC. The heart projects near the upper limits of normal in size, likely due to portable technique and somewhat lordotic positioning. No pulmonary venous hypertension is seen. The lungs and pleural spaces are clear. There are mild degenerative changes of the visualized spine and shoulder girdles. IMPRESSION: LEFT UPPER EXTREMITY PIC IN PLACE WITH ITS TIP IN THE MID SVC. NO EVIDENCE OF ACUTE CARDIOPULMONARY DISEASE. JOB NUMBER: [id number] MTDD
[2017-04-12 09:39] LABS: BASO % 0.3 % (0-6); GRAN % 64.1 % (47-80); HEMATOCRIT 31.2 % (35.0-47.0); HEMOGLOBIN 10.5 gm/dl (11.6-16.0); LYMPH % 21.3 % (16-45); MEAN CELL VOLUME 86.2 fl (81-97); MEAN CORPUSCULAR HGB CONC 33.7 g/dl (32-36); MEAN PLATELET VOLUME 11.9 fl (7.4-10.4); MONO % 11.3 % (0-9); PLATELET COUNT 51 K/uL (130-400); RED BLOOD COUNT 3.62 M/uL (3.80-5.40); RED CELL DISTRIBUTION WIDTH 14.3 % (11.5-14.5)
[2017-04-12 09:49] LABS: INR 1.12; PROTHROMBIN TIME (PATIENT) 12.7 SECONDS (9.5-12.1)
[2017-04-12 09:53] LABS: ALB/GLOB RATIO 1.1 (1.1-1.8); ALBUMIN 3.3 gm/dL (3.5-5.0); ANION GAP 8.5 (7-16); BILIRUBIN,TOTAL 1.1 mg/dL (0.2-1.3); C-REACTIVE PROTEIN 5.7 mg/dL (0.0-0.9); CARBON DIOXIDE 26.5 mmol/L (22-30); CREATININE 1.3 mg/dL (0.52-1.04); TOTAL PROTEIN 6.4 gm/dL (6.3-8.2)
[2017-04-12] MEDS ORDERED: CLINDAMYCIN 600MG/4 ML VIAL IM SCH (10:00)
[2017-04-12] MEDS: RIFAXIMIN 550 MG TABLET PO SCH ×2 (10:15→21:27)
[2017-04-12] MEDS: CLINDAMYCIN 600MG/50ML PREMIX 600 MG/50 ML BAG IVPB SCH ×2 (10:15→19:20)
[2017-04-12] MEDS: BUMETANIDE 1 MG TABLET PO SCH (10:18)
[2017-04-12] MEDS: ASPIRIN 81 MG TABEC PO SCH (10:19)
[2017-04-12] MEDS: GABAPENTIN 300 MG CAPSULE PO SCH ×3 (10:19→21:27)
[2017-04-12] MEDS: CHOLECALCIFEROL 1,000 UNIT TABLET PO SCH (10:20)
[2017-04-12] MEDS: HYDROXYZINE PAMOATE 25 MG CAPSULE PO SCH (10:20)
[2017-04-12] MEDS: METOPROLOL SUCC 25 MG TAB.ER PO SCH (10:21)
[2017-04-12] MEDS: LEVETIRACETAM 500 MG TABLET PO SCH ×2 (10:27→21:26)
[2017-04-12] MEDS ORDERED: HYDROXYZINE PAMOATE 25 MG CAPSULE PO PRN (11:52)
[2017-04-12] MEDS: DICLOFENAC SODIUM 4 GM TP SCH (13:50)
[2017-04-12] MEDS: OXYCODONE HCL 5 MG TABLET PO PRN ×2 (15:36→21:28)
[2017-04-12] MEDS: ATORVASTATIN 20 MG TABLET PO SCH (21:27)
[2017-04-12] MEDS: LEVEMIR FLEXTOUCH 100 UNIT/ML INSULIN PEN SQ SCH (21:29)
[2017-04-13] MEDS: 0.9 % SODIUM CHLORIDE 10ML SYR IVP PRN ×4 (02:31→09:27)
[2017-04-13] MEDS: CLINDAMYCIN 600MG/50ML PREMIX 600 MG/50 ML BAG IVPB SCH ×2 (02:31→10:17)
[2017-04-13] MEDS: HEPARIN SODIUM FLUSH 100 UNITS/ML SYR 5ML IVP PRN ×3 (03:52→09:26)
[2017-04-13] MEDS: LEVOTHYROXINE SODIUM 75 MCG TABLET PO SCH (06:27)
[2017-04-13] MEDS: LACTULOSE 20 GM/30 ML UDC PO SCH (06:27)
[2017-04-13 06:44] LABS: BASO % 0.8 % (0-6); EOS % 3.7 % (0-6); GRAN % 43.1 % (47-80); HEMATOCRIT 30.5 % (35.0-47.0); HEMOGLOBIN 10.1 gm/dl (11.6-16.0); LYMPH % 39.8 % (16-45); MEAN CELL VOLUME 86.9 fl (81-97); MEAN CORPUSCULAR HGB CONC 33.1 g/dl (32-36); MEAN PLATELET VOLUME 12.1 fl (7.4-10.4); MONO % 12.6 % (0-9); PLATELET COUNT 53 K/uL (130-400); RED BLOOD COUNT 3.51 M/uL (3.80-5.40); RED CELL DISTRIBUTION WIDTH 14.4 % (11.5-14.5); WHITE BLOOD COUNT W/O DIFF 2.5 K/uL (4.2-12.2)
[2017-04-13 06:51] LABS: MEAN CORPUSCULAR HEMOGLOBIN 28.7 pg (27-33)
[2017-04-13 06:58] LABS: ALB/GLOB RATIO 1.1 (1.1-1.8); ALBUMIN 3.3 gm/dL (3.5-5.0); ANION GAP 8.7 (7-16); BILIRUBIN,TOTAL 0.73 mg/dL (0.2-1.3); CARBON DIOXIDE 26.3 mmol/L (22-30); CREATININE 1.5 mg/dL (0.52-1.04); TOTAL PROTEIN 6.4 gm/dL (6.3-8.2)
[2017-04-13] MEDS: GABAPENTIN 300 MG CAPSULE PO SCH ×2 (08:13→09:27)
[2017-04-13] MEDS: OXYCODONE HCL 5 MG TABLET PO PRN (08:13)
[2017-04-13] MEDS: LEVETIRACETAM 500 MG TABLET PO SCH (08:15)
[2017-04-13] MEDS: BUMETANIDE 1 MG TABLET PO SCH (09:24)
[2017-04-13] MEDS: CHOLECALCIFEROL 1,000 UNIT TABLET PO SCH (09:25)
[2017-04-13] MEDS: METOPROLOL SUCC 25 MG TAB.ER PO SCH (09:25)
[2017-04-13] MEDS: ASPIRIN 81 MG TABEC PO SCH (09:25)
[2017-04-13] MEDS: POLYETHYLENE GLY 17 GM PACKET PO SCH (09:27)
--- NOTE | 2017-04-13 09:27 | Discharge Summary ---
Providers Discharge Summary Date: 04/13/17 Date of admission: 04/11/17 19:27 Expected Date of Discharge: 04/13/17 Attending physician: CORY LEWIS Primary care physician: JIM DOHERTY Physical Exam - Vital Signs Vital Signs: Vital Signs - Last 24 Hrs Temp Pulse Resp BP BP Pulse Ox 04/13/17 06:00 97.6 F 66 18 125/59 99 04/13/17 00:35 98.3 F 66 18 138/70 99 04/12/17 15:53 97.4 F L 60 12 138/69 99 - General General Appearance: Alert, Oriented x3, Cooperative, No acute distress Limitations: No limitations - Head Head exam: Normal inspection - Eye Eye exam: Normal appearance, PERRL. negative: Conjunctival injection, Scleral icterus - ENT ENT exam: Normal exam Ear exam: Normal external inspection Nasal Exam: Normal inspection Mouth exam: Normal external inspection Teeth exam: Normal inspection - Neck Neck exam: Normal inspection, Full ROM. negative: Tenderness - Respiratory Respiratory exam: Normal lung sounds bilaterally. negative: Respiratory distress, Rhonchi, Stridor, Wheezes - Cardiovascular Cardiovascular Exam: Regular rate, Normal rhythm, Normal heart sounds - GI/Abdominal GI/Abdominal exam: Soft. negative: Tenderness - Rectal Rectal exam: Deferred - exam: Deferred - Extremities Extremities exam: Normal capillary refill, Pedal edema (2+). negative: Normal inspection, Calf tenderness, Full ROM, Tenderness - Back Back exam: Denies: CVA tenderness (R), CVA tenderness (L) - Neurological Neurological exam: Alert, Oriented X3 - Psychiatric Psychiatric exam: negative: Agitated, Anxious - Skin Skin exam: Erythema (continues to decrease in size, no warmth, induration, fluctuance or streaking), Intact Hospitalization - Hospitalization Admission Diagnosis: right leg cellulitis - Problem List/Discharge Diagnosis (1) Cellulitis Current Visit: Yes Status: Acute Discharge Diagnosis: Site of cellulitis: extremity Site of cellulitis of extremity: lower extremity Laterality: right Qualified Code(s): L03.115 - Cellulitis of right lower limb Base Code: L03.90 - CELLULITIS, UNSPECIFIED Comment: 04/13/17- continues to improve. Venous doppler negative for DVT. WBC count decreased at 2.5. patient remains afebrile with normal BP and HR. -continue clindamyacin 600mg IV q8H via PICC. [facility] will be out tonight to continue IV therapy at home. -follow up in [facility] with me on 04/15/17 as previously scheduled. Will plan to remove PICC after appointment -will need to repeat wbc count as outpatient prior to that appointment. patient follows [facility] hematology, [facility], for ITP may need to refer back if WBC remains low -outpatient surgical consult for a port placement. will place referral at follow up appointment (2) T2DM (type 2 diabetes mellitus) Current Visit: Yes Status: Acute Discharge Diagnosis: Diabetes mellitus complication status: with kidney complications Diabetes mellitus complication detail: with chronic kidney disease Diabetes mellitus petroleum terminal plant operator insulin use: with petroleum terminal plant operator use Chronic kidney disease stage: stage 3 (moderate) Qualified Code(s): E11.22 - Type 2 diabetes mellitus with diabetic chronic kidney disease; N18.3 - Chronic kidney disease, stage 3 ( moderate); Z79.4 - terminal gauger (current) use of insulin Base Code: E11.9 - TYPE 2 DIABETES MELLITUS WITHOUT COMPLICATIONS Comment: - Last A1C in December 19.92. renal function stable with eGFR of 37 today. BUN 27 and Cr of 1.5 is at her baseline. -continue home insulin dosing -ADA diet. Dietary consulted and counseled. (3) ODEN (nonalcoholic steatohepatitis) Current Visit: Yes Status: Acute Base Code: K75.81 - NONALCOHOLIC STEATOHEPATITIS (ODEN) Comment: 04/13/17- stable. Follows with [facility]. Alena Hughes. -continue home lactulose dosing- 30ml 6am; 45ml at noon; 30ml 6pm -continue xifaxin 550mg po bid -continue monitoring stool output (goal 2-3 soft stools daily) -add miralax for constipation (4) Full code status Current Visit: Yes Status: Acute Base Code: Z78.9 - OTHER SPECIFIED HEALTH STATUS Comment: 04/13/17- patient is full code (5) DVT prophylaxis Current Visit: Yes Status: Acute Base Code: [id number] - Comment: 04/13/17- patient was high risk with age, morbid obesity , and restricted mobility. lovenox contraindicated [facility] platelet count of 51 2/2 chronic ITP - SCD's while in bed -encouraged ambulation - Hospitalization Course Disposition: Home Health Service Hospital Course: 62yo female with CC of right lower extremity redness and swelling. She has a history of ODEN one episode of toxic metabolic encephalopathy that lead to seizure in October of 2016, T2DM, chronic ITP, CKD stage 3, chronic lower extremity edema, morbid obesity, osteoarthritis b/l knee, chronic lower back pain. Patient presented to the ED after 36 hours of right lower extremity redness and swelling. She says it started Tuesday morning and got progressively worse. Was not painful to walk on but was tender to the touch. Her home care nurse noted it and recommended she go to [facility] to be evaluated. They sent her over to ED to further evaluate possibility of a DVT. While in the ED, patient underwent venous doppler that was negative for DVT. ED was unable to gain venous access for labs after multiple attempts. Patient was afebrile with normal HR and BP. She was started on Clindamyacin IM and PICC line was ordered. She was admitted for RLE cellulitis 04/12/17- Patient states her leg is doing much better today. She says the redness has decreased significantly in size. The leg is no longer tender to palpation as it had been. She denies trauma to the leg but does have chronic pedal edema. Just got orders for tubigrips via home health care but did not have a chance to start wearing them. She denies fevers, chills, N/V, fatigue. Last bout of cellulitis was also in the RLE about 15 months ago. 04/13/17-Patient states she continues to improve. No pain in the right lower extremity. Says the redness continues to decrease. Feels ready to go home. denies fever, chills, nausea Procedures: Imaging and X-Rays 04/11/17 23:20 CHEST AP or PA ONLY [RAD] Stat Abnormal Labs: Abnormal Lab Results 04/11/17 04/12/17 04/12/17 Range/Units 21:25 09:10 09:10 WBC 3.0 L (4.2-12.2) K/uL RBC 3.62 L (3.80-5.40) M/uL Hgb 10.5 L (11.6-16.0) gm/dl Hct 31.2 L (35.0-47.0) % Plt Count 51 L (130-400) K/uL MPV 11.9 H (7.4-10.4) fl Gran % (47-80) % Monocytes % 11.3 H (0-9) % PT 12.7 H (9.5-12.1) SECONDS BUN (7-17) mg/dL Creatinine (0.52-1.04) mg/dL POC Glucose 183 H (70-110) mg/dL Random Glucose (70-110) mg/dL AST (14-36) U/L Alkaline Phosphatase (38-126) U/L C-Reactive Protein (0.0-0.9) mg/dL Albumin (3.5-5.0) gm/dL 04/12/17 04/13/17 04/13/17 Range/Units 09:10 00:34 06:33 WBC 2.5 L (4.2-12.2) K/uL RBC 3.51 L (3.80-5.40) M/uL Hgb 10.1 L (11.6-16.0) gm/dl Hct 30.5 L (35.0-47.0) % Plt Count 53 L (130-400) K/uL MPV 12.1 H (7.4-10.4) fl Gran % 43.1 L (47-80) % Monocytes % 12.6 H (0-9) % PT (9.5-12.1) SECONDS BUN 24 H (7-17) mg/dL Creatinine 1.3 H (0.52-1.04) mg/dL POC Glucose 135 H (70-110) mg/dL Random Glucose 157 H (70-110) mg/dL AST 39 H (14-36) U/L Alkaline Phosphatase 148 H (38-126) U/L C-Reactive Protein 5.7 H (0.0-0.9) mg/dL Albumin 3.3 L (3.5-5.0) gm/dL 04/13/17 Range/Units 06:33 WBC (4.2-12.2) K/uL RBC (3.80-5.40) M/uL Hgb (11.6-16.0) gm/dl Hct (35.0-47.0) % Plt Count (130-400) K/uL MPV (7.4-10.4) fl Gran % (47-80) % Monocytes % (0-9) % PT (9.5-12.1) SECONDS BUN 27 H (7-17) mg/dL Creatinine 1.5 H (0.52-1.04) mg/dL POC Glucose (70-110) mg/dL Random Glucose 140 H (70-110) mg/dL AST (14-36) U/L Alkaline Phosphatase 154 H (38-126) U/L C-Reactive Protein (0.0-0.9) mg/dL Albumin 3.3 L (3.5-5.0) gm/dL Condition at Discharge: (2) Stable Discharge Medications - Discharge Medications Home Medications: Ambulatory Orders Aspirin [Ecotrin] 81 mg PO QHS 07/02/15 [Last Taken 1 Day Ago ~10/28/16] Ergocalciferol (Vitamin D2) [Vitamin D2] 2,000 unit PO DAILY tab 11/04/15 [ Last Taken 1 Day Ago ~10/28/16] Discharge Plan - Discharge Instructions Activity at Discharge: Resume Usual Activities As Tolerated Diet at Discharge: Diabetic Diet Additional Instructions: Continue low fat diet, carbohydrate control-use plate for portion control visual Continue Clindamyacin 600mg IV every 8 hours (10 am, 6pm, 2am) Follow up in the [facility] Family Practice on Tuesday at 2:00 Please have labs done prior to appointment. We will plan to remove PICC line after appointment that day Please call with any questions
[2017-04-13] MEDS: RIFAXIMIN 550 MG TABLET PO SCH (09:30)
--- NOTE | 2017-04-22 14:36 | US VENOUS DOPPLER REPORT ---
EXAM: ULTRASOUND OF THE DEEP VENOUS SYSTEM OF THE RIGHT LOWER EXTREMITY HISTORY: PAIN. TECHNIQUE: Sonographic evaluation of the deep venous system of the right lower extremity was performed with the addition of Doppler, compression and augmentation. FINDINGS: There is normal blood flow, compression and augmentation identified from the right common femoral vein to the popliteal vein. The distal venous structures are no well visualized. There is diffuse soft tissue swelling and edema consistent with cellulitis. IMPRESSION: NO SONOGRAPHIC EVIDENCE OF DEEP VEIN THROMBOSIS IDENTIFIED IN THE PROXIMAL RIGHT LOWER EXTREMITY. THE DISTAL VEINS ARE NOT WELL VISUALIZED DUE TO CELLULITIS/EDEMA. JOB NUMBER: [id number] MTDD
== END 2017-04-13 11:51 | disposition home health service (06) | DRG 603 ==
LOC: ER 14:53 → MEDSURG 19:27
PROVIDERS: ADMIT Family Medicine; ATTEND Family Medicine
PROC: 05H633Z Insertion of Infusion Device into Left Subclavian Vein, Percutaneous Approach (ICD-10-PCS; principal; 2017-04-11)
DX: L03.115 Cellulitis of right lower limb (principal); D69.3 Immune thrombocytopenic purpura; K75.81 Nonalcoholic steatohepatitis (NASH); E11.9 Type 2 diabetes mellitus without complications; Z79.4 Long term (current) use of insulin; N18.3 Chronic kidney disease, stage 3 (moderate); E78.00 Pure hypercholesterolemia, unspecified; I10 Essential (primary) hypertension; E03.9 Hypothyroidism, unspecified; D69.6 Thrombocytopenia, unspecified; R22.41 Localized swelling, mass and lump, right lower limb; M79.604 Pain in right leg
CPT/HCPCS: 36416; 36569; 71010; 80053; 82948; 85025; 85610; 85730; 86140; 96365; 99223; 99239; 99285

== ENCOUNTER 2017-05-16 07:16 | Day surgery (SDC) | payer MEDICARE ==
[~2017-05-16 07:16] MED LIST: CEFAZOLIN 2 Gram 2 GM/50 ML BAG IVPB ONE; FAMOTIDINE 20MG TABLET PO ONE; METOCLOPRAMIDE 10 MG TABLET PO ONE
[2017-05-16] MEDS ORDERED: FENTANYL PF 100MCG/2ML VIAL IV ONE (14:00)
[2017-05-16] MEDS ORDERED: PROPOFOL 10 MG/ML VIAL IV ONE (14:00)
[2017-05-16] MEDS ORDERED: LIDOCAINE 2% MDV (20MG/ML) 20ML VIAL IV ONE (14:00)
[2017-05-16] MEDS ORDERED: MIDAZOLAM HCL 2MG/2ML VIAL IV ONE (14:00)
[2017-05-16] MEDS ORDERED: SEVOFLURANE 250 ML INH ONE (14:00)
[2017-05-16] MEDS ORDERED: HEPARIN SODIUM FLUSH 100 UNITS/ML SYR 5ML IVP ONE (15:02)
[2017-05-16] MEDS ORDERED: BUPIVACAINE 0.25% W/EPI MPF 30ML VIAL IVP ONE (15:02)
--- NOTE | 2017-05-17 19:33 | RADIOLOGY REPORT ---
EXAM: CHEST AP or PA ONLY HISTORY: [id number] INSERTION. TECHNIQUE: AP upright portable chest. COMPARISON: None. FINDINGS: Cardiomegaly. Left-sided venous access port placed. The catheter extends down into the region of the right atrium. No definite pneumothorax seen. There is some minor opacity in the left base medially, probably some atelectasis or infiltrate. IMPRESSION: VENOUS ACCESS PORT IN PLACE EXTENDING DOWN INTO THE RIGHT ATRIUM WITH NO PNEUMOTHORAX IDENTIFIED. JOB NUMBER: [id number] [facility]
--- NOTE | 2017-05-19 09:35 | Operative Note ---
DATE OF SURGERY: 05/16/2017 Surgeon: Enrico Joy D.O. Referring Provider: Shea Barraza PA-C PREOPERATIVE DIAGNOSIS: Poor vascular access. POSTOPERATIVE DIAGNOSIS: Poor vascular access. OPERATION: Infusaport placement with fluoroscopy. Indication: Patient is a 62-year-old female who gets constant infusions. Due to her body habitus, she has difficulty with IV access. She came in to discuss infusaport placement. Risks, benefits, and alternatives were discussed. Risks include bleeding, infection, pneumothorax, potential need for chest tube, postop bleeding. 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 Her last platelet count was 80,000. This does fluctuate, and therefore, we did discuss platelet transfusion prior. PROCEDURE: Therefore, consent was signed and questions answered. She was taken to the operating room and placed in the supine position. General anesthesia was administered per Department of Anesthesia. Due to patient's body habitus, she was too obese to tuck her arms, therefore, these were left [id number] and placed at her side. Roll was inserted for slight hyperextension. At this time, adequate timeout was performed. She did receive preoperative antibiotic as well as platelet infusion. Her chest was prepped and draped in sterile fashion. She was then, therefore, placed into Trendelenburg position and was identified. At this time the area around the clavicle with anesthetized with a total of 8 mL of 0.25% Sensorcaine with epinephrine. An 18-gauge Cook needle was used to cannulate the left subclavian vein on the first attempt. Through this, a guidewire was inserted under direct fluoroscopic guidance. Once it was in adequate position, a pocket was created inferior to this, and a 9.6 Thai port was then assembled. This was fed through the cannulated save for the wire under direct fluoroscopic guidance. We did measure this to size and then trimmed this appropriately. At this time, a dilator and peel-away sheath were placed through the wire under direct fluoroscopic guidance. These were then removed and the catheter was fed through the hole into the peel-away sheath. Once this was in adequate position, this was aspirated and flushed without difficulty. The port was then sutured to the pectoralis fascia with 0 Vicryl. The wounds were then closed with 3-0 and 4-0 Vicryl. She tolerated the procedure well. Final chest x-ray pending. MICHELE
== END 2017-05-16 12:15 | disposition home or self-care (01) ==
LOC: SUR 07:16
PROVIDERS: ATTEND Surgery
DX: Z45.2 Encounter for adjustment and management of vascular access device (principal); K75.81 Nonalcoholic steatohepatitis (NASH); K72.90 Hepatic failure, unspecified without coma; E11.9 Type 2 diabetes mellitus without complications; Z79.4 Long term (current) use of insulin; E03.9 Hypothyroidism, unspecified; E78.00 Pure hypercholesterolemia, unspecified; G40.909 Epilepsy, unspecified, not intractable, without status epilepticus; K74.60 Unspecified cirrhosis of liver; I10 Essential (primary) hypertension
CPT/HCPCS: 36561; 00532; 71010; 77001; J3010; J1642; J0690

== ENCOUNTER 2018-02-09 09:05 | Day surgery (SDC) | payer MEDICARE ==
[2018-02-09] MEDS ORDERED: PROPOFOL 10 MG/ML VIAL IV ONE (09:06)
[2018-02-09] MEDS ORDERED: LIDOCAINE 2% MDV (20MG/ML) 20ML VIAL IV ONE (09:06)
--- NOTE | 2018-02-09 14:20 | Operative Note ---
DATE OF SURGERY: 02/09/2018 OPERATION: ESOPHAGOGASTRODUODENOSCOPY. PREOPERATIVE DIAGNOSIS: Personal history of cirrhosis, rule out increasing varices. POSTOPERATIVE DIAGNOSES: 1. Small distal esophageal varices. 2. Mild portal hypertensive gastropathy. PROCEDURE: After informed consent was obtained from the patient, she was placed in the left lateral decubitus position in the endoscopy suite, sedated and monitored by the department of anesthesia. A well-lubricated [id number] gastroscope was placed in the posterior oropharynx and under direct visualization passed to the proximal esophagus. The endoscope was advanced through the proximal, mid, and distal esophagus. There were noted to be 3 columns of very small varices. No stigmata of recent hemorrhage, fresh or old blood was seen. The remainder of the esophagus and the mucosa appeared unremarkable. The gastric body demonstrated some mild portal hypertensive gastropathy-like changes. No fresh blood was noted other than one speck in the antrum which was rinsed and no persistent bleeding was noted. There were mildly erythematous changes in the antrum. The pylorus, duodenal bulb, and sweep were unremarkable. J-turn views of the proximal stomach revealed no obvious fundal varices or cardia varices. The endoscope was then straightened and retracted from the patient with no new findings noted. The procedure was well tolerated with no apparent complications. RECOMMENDATIONS: We will continue to monitor the patient with [id number] alpha-fetoprotein and ultrasounds. There was a trace amount of ascites seen on most recent ultrasound. If this is found to be more significant on next exam, I would suggest the patient be discontinued from her ZAIRA inhibitor which may cause more issues. If there is just scant ascites, perhaps continuing this might not be unreasonable given her history of diabetes and apparent wil-protective effects of the lisinopril. As always, thank you for allowing me to participate in the healthcare of your patients. CC: MD MICHELE Gayle
== END 2018-02-09 10:33 | disposition home or self-care (01) ==
LOC: HOP 09:05
PROVIDERS: ATTEND Internal Medicine Gastroenterology
DX: K74.60 Unspecified cirrhosis of liver (principal); I85.00 Esophageal varices without bleeding; K76.6 Portal hypertension; K31.89 Other diseases of stomach and duodenum; E11.9 Type 2 diabetes mellitus without complications; Z79.4 Long term (current) use of insulin; K75.81 Nonalcoholic steatohepatitis (NASH); G62.9 Polyneuropathy, unspecified; I10 Essential (primary) hypertension; E78.00 Pure hypercholesterolemia, unspecified; R56.9 Unspecified convulsions

== ENCOUNTER 2018-06-17 11:55 | Emergency (ER) | payer MEDICARE ==
--- NOTE | 2018-06-17 12:01 | Emergency Department Record ---
History of Present Illness - General Chief complaint: Female Urogenital Problem Stated complaint: URINARY TRACT INFECTION Time Seen by Provider: 06/17/18 11:57 Source: Patient Mode of Arrival: Ambulatory Limitations: No limitations - History of Present Illness Initial comments: 63 yo female presents with concerns about urination and possible UTI. The onset of burning started last night. Tmax was about 99. No fever or chills. No nausea or vomiting. No diarrhea. No abdominal pain. She also has chronic edema. Her cat scratched her and she has some weeping. No back or flank pain. MD Complaint: Dysuria Location: Other (No pain) Severity: Mild Quality: Burning Consistency: Intermittent Improves with: None Worsens with: Urination Associated Symptoms: Other (chronic edema) - Related Data Home Medications Medication Instructions Recorded Confirmed Last Taken Levetiracetam [Keppra] 500 mg PO BID 06/17/18 06/17/18 Unknown Previous Rx's Medication Instructions Recorded Amoxicillin/Potassium Clav 1 tab PO BID #14 tab 06/17/18 [Augmentin 875-125 Tablet] Allergies Allergy/AdvReac Type Severity Reaction Status Date / Time No Known Allergies Allergy PT UNSURE Unverified 06/06/18 11:05 OF REACTION Review of Systems Constitutional: Denies: Chills, Fever (99), Weakness Eyes: Denies: Eye discharge ENT: Denies: Congestion, Throat pain Respiratory: Denies: Cough Cardiovascular: Reports: As per HPI, Edema. Denies: Chest pain, Syncope Endocrine: Denies: Fatigue Gastrointestinal: Denies: Abdominal pain, Diarrhea, Nausea, Vomiting Genitourinary: Reports: Dysuria, Frequency. Denies: Retention, Urgency Musculoskeletal: Denies: Arthralgia, Back pain, Joint swelling, Myalgia Skin: Denies: Bruising, Change in color, Rash Neurological: Denies: Headache, Numbness, Weakness Psychiatric: Denies: Anxiety Hematological/Lymphatic: Denies: Easy bleeding, Easy bruising Past Medical History - SOCIAL HISTORY Smoking Status: Former smoker - RESPIRATORY Hx Respiratory Disorders: Yes - CARDIOVASCULAR Hx Cardio Disorders: Yes Hx Edema: Yes (at night) Hx Hypertension: Yes Comment:: high cholesterol - NEURO Hx Neuro Disorders: Yes Hx Neuropathy: Yes (tingling in toes rt foot) Hx Seizures: Yes (Oct 2016 elevated ammonia levels & UTI) - GI Hx GI Disorders: Yes Hx Liver Disease: Yes (fatty liver) Hx Ulcer: Yes (on meds for-protonix) Hx Cirrhosis: Yes (ODEN) Comment:: has a little bit of varices-Dr Carvajal 12/2016-improved - Hx Genitourinary Disorders: Yes Comment:: over 2 years since last peroid - ENDOCRINE Hx Endocrine Disorders: Yes Comment:: lately FBS 74-130 - MUSCULOSKELETAL Hx Musculoskeletal Disorders: Yes Hx Arthritis: Yes (back,ankles,hands) Comment:: spinal stenosis, herniated disk lower lumbar - PSYCH Hx Psych Problems: Yes Hx Anxiety: Yes (sometimes) - HEMATOLOGY/ONCOLOGY Hx Hematology/Oncology Disorders: Yes Hx Blood Disorders: Yes (low platelet) Hx Bruising: Yes (easy to bruise from BP cuffs) Hx Blood Transfusions: No Comment:: last platelets were 46,000. Family Medical History Hx Alcohol Use: Father, Mother, Brother/Sister Hx Cancer: Mother, Brother/Sister Hx Depression: Father, Mother Hx Diabetes: Brother/Sister Hx Heart Disease: Father Hx HTN: Father, Mother, Children, Brother/Sister Hx Liver Disease: Brother/Sister Hx Stroke: Grandparents Physical Exam - General General Appearance: Alert, Oriented x3, Cooperative, No acute distress Limitations: No limitations - Head Head exam: Atraumatic, Normal inspection - Eye Eye exam: Normal appearance. negative: Conjunctival injection - ENT ENT exam: Normal exam, Mucous membranes moist Ear exam: Normal external inspection Nasal Exam: Normal inspection Mouth exam: Normal external inspection - Neck Neck exam: Normal inspection, Full ROM. negative: Tenderness - Respiratory Respiratory exam: Normal lung sounds bilaterally. negative: Respiratory distress - Cardiovascular Cardiovascular Exam: Regular rate, Normal rhythm, Normal heart sounds - GI/Abdominal GI/Abdominal exam: Soft. negative: Tenderness - Rectal Rectal exam: Deferred - exam: Deferred - Extremities Extremities exam: Full ROM, Pedal edema (bilateral symmetric). negative: Calf tenderness Image of Full Body: 1 - mild erythema, no ulcers or pustules, otherwise intact - Back Back exam: Denies: CVA tenderness (R), CVA tenderness (L) - Neurological Neurological exam: Alert, Oriented X3 - Psychiatric Psychiatric exam: Normal affect, Normal mood - Skin Skin exam: Dry, Intact, Normal color, Warm Course - Reevaluation(s) Reevaluation #1: Trace LE otherwise negative She will be treated with Augmentin due to the leg infection 06/17/18 12:47 Disposition Disposition: Discharge Clinical Impression: Dysuria, Cellulitis Disposition: Home, Self-Care Condition: (1) Good Instructions: Cellulitis (ED), Dysuria (ED) Additional Instructions: Take the prescriptions provided today as directed. Call your family doctor. Call to schedule the next available appointment for a recheck. Return to ED if your symptoms worsen or if you have any new concerns. Review the final Emergency Record and test results with your doctor on follow up Prescriptions: Amoxicillin/Potassium Clav [Augmentin 875-125 Tablet] 1 tab PO BID #14 tab Forms: Patient Portal Access Time of Disposition: 12:49 Quality - Quality Measures Quality Measures: N/A - Blood Pressure Screening Does Patient Have Any of the Following: Active Dx of HTN Blood Pressure Classification: Hypertensive Reading Systolic Measurement: 143 Diastolic Measurement: 62 Screening for High Blood Pressure: Patient Exclusion, Hx of HTN [G9744]
[2018-06-17 12:20] LABS: URINE APPEARANCE CLEAR; URINE BILIRUBIN NEGATIVE (NEGATIVE); URINE BLOOD NEGATIVE (NEGATIVE); URINE COLOR YELLOW; URINE GLUCOSE (UA) NEGATIVE (NEGATIVE); URINE KETONE NEGATIVE (NEGATIVE); URINE LEUKOCYTE ESTERASE TRACE (NEGATIVE); URINE NITRITE NEGATIVE (NEGATIVE); URINE PROTEIN NEGATIVE (NEGATIVE); URINE UROBILINOGEN 0.2 E.U./dL (0.20 - 1.00)
[2018-06-17 12:39] LABS: URINE AMORPHOUS SEDIMENT 1+; URINE EPITHELIAL CELLS 0 - 2 (FEW); URINE RBC 0 - 2 (NONE SEEN); URINE WBC 0 - 2 (0-2/hpf)
== END 2018-06-17 13:57 | disposition home or self-care (01) ==
LOC: ER 11:55
DX: R30.0 Dysuria (principal); L03.115 Cellulitis of right lower limb; R60.0 Localized edema; I10 Essential (primary) hypertension; Z87.891 Personal history of nicotine dependence
CPT/HCPCS: 81001; 99282; 99283

== ENCOUNTER 2018-10-02 12:41 | Observation (INO) | payer MEDICARE ==
--- NOTE | 2018-10-02 13:00 | Emergency Department Record ---
History of Present Illness - General Chief Complaint: Slurred speech Stated Complaint: SLURRED SPEECH,CONFUSION Time Seen by Provider: 10/02/18 12:52 Source: Patient Mode of Arrival: Ambulatory Limitations: No limitations - History of Present Illness Initial Comments: The patient is here due to not feeling well this AM. She has been mildly confused per herself and her boyfriend. She also has had intermittent speech difficulty and feeling shaky off and on. The patient noticed the symptoms after waking up this AM. She denies any DOOLEY, arm or leg numbness, weakness or fevers. She has had similar issues due to her ammonia being elevated in the past from her cirrhosis. Onset/Timin -: Hour(s) Location: Speech History of same: Yes Place: Home Severity: Mild Quality: Improving Improves With: None Worsens With: None On Anticoagulants: Yes Context: Other Associated Symptoms: Denies other symptoms Treatments Prior to Arrival: None - Related Data Allergies/Adverse Reactions: Allergies Allergy/AdvReac Type Severity Reaction Status Date / Time No Known Drug Allergies Allergy Unverified 08/11/18 10:45 Travel Screening - Travel/Exposure Within Last 30 Days Have you traveled within the last 30 days?: No Review of Systems Constitutional: Denies: Chills, Fever Eyes: Denies: Eye discharge ENT: Denies: Congestion Respiratory: Denies: Cough, Dyspnea Cardiovascular: Denies: Arrhythmia, Chest pain Endocrine: Reports: Fatigue Gastrointestinal: Denies: Abdominal pain Genitourinary: Denies: Dysuria Musculoskeletal: Denies: Back pain Skin: Denies: Bruising Past Medical History - SOCIAL HISTORY Smoking Status: Former smoker Drug Use: None - RESPIRATORY Hx Respiratory Disorders: Yes - CARDIOVASCULAR Hx Cardio Disorders: Yes Hx Edema: Yes (at night) Hx Hypertension: Yes Comment:: high cholesterol - NEURO Hx Neuro Disorders: Yes Hx Neuropathy: Yes (tingling in toes rt foot) Hx Seizures: Yes (Oct 2016 elevated ammonia levels & UTI) - GI Hx GI Disorders: Yes Hx Liver Disease: Yes (fatty liver) Hx Ulcer: Yes (on meds for-protonix) Hx Cirrhosis: Yes (ODEN) Comment:: has a little bit of varices-Dr Carvajal 12/2016-improved - Hx Genitourinary Disorders: Yes Comment:: over 2 years since last peroid - ENDOCRINE Hx Endocrine Disorders: Yes Comment:: lately FBS 74-130 - MUSCULOSKELETAL Hx Musculoskeletal Disorders: Yes Hx Arthritis: Yes (back,ankles,hands) Comment:: spinal stenosis, herniated disk lower lumbar - PSYCH Hx Psych Problems: Yes Hx Anxiety: Yes (sometimes) - HEMATOLOGY/ONCOLOGY Hx Hematology/Oncology Disorders: Yes Hx Blood Disorders: Yes (low platelet) Hx Bruising: Yes (easy to bruise from BP cuffs) Hx Blood Transfusions: No Comment:: last platelets were 46,000. Family Medical History Any Significant Family History?: Yes Hx Alcohol Use: Father, Mother, Brother/Sister Hx Cancer: Mother, Brother/Sister Hx Depression: Father, Mother Hx Diabetes: Brother/Sister Hx Heart Disease: Father Hx HTN: Father, Mother, Children, Brother/Sister Hx Liver Disease: Brother/Sister Hx Stroke: Grandparents Physical Exam - General General Appearance: Alert, Oriented x3, Cooperative, No acute distress - Head Head exam: Atraumatic, Normocephalic, Normal inspection - Eye Eye exam: Normal appearance, PERRL, EOMI - ENT Throat exam: Normal inspection. negative: Tonsillar erythema, Tonsillar exudate - Neck Neck exam: Normal inspection - Respiratory Respiratory exam: Normal lung sounds bilaterally. negative: Respiratory distress - Cardiovascular Cardiovascular Exam: Regular rate, Normal rhythm, Normal heart sounds - GI/Abdominal GI/Abdominal exam: Soft, Normal bowel sounds, Other (morbidly obese.). negative : Rebound, Rigid, Tenderness - Extremities Extremities exam: Normal inspection, Full ROM, Normal capillary refill. negative: Tenderness - Neurological Neurological exam: Alert, Normal gait, Oriented X3. negative: Abnormal gait, Motor sensory deficit - Psychiatric Psychiatric exam: negative: Anxious - Skin Skin exam: negative: Rash Course Vital Signs 10/02/18 12:46 Temperature 98.1 F Pulse Rate 69 Respiratory 20 Rate Blood Pressure 146/56 Pulse Ox 100 - Reevaluation(s) Reevaluation #1: The patient is doing better at this time. She is talking normally and conversant. I did discuss the elevated Ammonia with her and the need for admission and she did agree to the plan. I also did discuss the case with Stephanie (MANAGER MACHINE) and she does accept the admission for Dr. Reynolds. 10/02/18 14:40 Medical Decision Making - Data Complexity MDM Data: Labs Ordered and/or Reviewed, X-Ray Ordered and/or Reviewed, EKG Ordered and/or Reviewed - Lab Data Result diagrams: 10/02/18 13:10 10/02/18 13:10 - EKG Data -: EKG Interpreted by Me EKG: No Acute Changes, Normal EKG, Unchanged From Previous - Radiology Data Radiology results: Report reviewed (Head CT: Neg per Rad.) Disposition Disposition: Admit Clinical Impression: Acute hepatic encephalopathy Disposition: Still a Patient at [facility] Decision to Admit: Admit from ER Decision to Admit Date: 10/02/18 Decision to Admit Time: 14:42 Accepting Physician: Rodolfo Time Discussed w/Accepting Physician: 14:42 Condition: (2) Stable Time of Disposition: 14:42 Quality - Quality Measures Quality Measures: N/A - Blood Pressure Screening View Details: Yes Does Patient Have Any of the Following: Active Dx of HTN Blood Pressure Classification: Hypertensive Reading Systolic Measurement: 146 Diastolic Measurement: 56 Screening for High Blood Pressure: Patient Exclusion, Hx of HTN [G9744]
[2018-10-02 13:29] LABS: BASO % 0.7 % (0-6); GRAN % 62.5 % (47-80); HEMATOCRIT 33.4 % (35.0-47.0); HEMOGLOBIN 10.4 gm/dl (11.6-16.0); LYMPH % 22.8 % (16-45); MEAN CELL VOLUME 92.3 fl (81-97); MEAN CORPUSCULAR HEMOGLOBIN 28.7 pg (27-33); MEAN CORPUSCULAR HGB CONC 31.1 g/dl (32-36); MEAN PLATELET VOLUME 11.2 fl (7.4-10.4); PLATELET COUNT 94 K/uL (130-400); RED BLOOD COUNT 3.62 M/uL (3.80-5.40); RED CELL DISTRIBUTION WIDTH 14.8 % (11.5-14.5); WHITE BLOOD COUNT W/O DIFF 4.4 K/uL (4.2-12.2)
[2018-10-02 13:45] LABS: BLOOD UREA NITROGEN 37 mg/dL (8-23); CREATININE 1.9 mg/dL (0.5-0.9); EST GLOMERULAR FILTRATION RATE 28 mL/min
[2018-10-02 13:46] LABS: TOTAL PROTEIN 5.9 g/dL (6.6-8.7)
[2018-10-02 13:47] LABS: INR 1.3; PARTIAL THROMBOPLASTIN TIME 38.1 SECONDS (24.5-39.1); PROTHROMBIN TIME (PATIENT) 12.7 SECONDS (9.5-12.1)
[2018-10-02 13:48] LABS: GLUCOSE,RANDOM 125 mg/dL (74-109)
[2018-10-02 13:51] LABS: ALKALINE PHOSPHATASE 116 U/L (35-104); ALT/SGPT 32 U/L (<33); AST/SGOT 41 U/L (10.0-35.0)
[2018-10-02] MEDS ORDERED: LACTULOSE 20 GM/30 ML UDC PO ONE (14:08)
[2018-10-02] MEDS ORDERED: 0.9 % SODIUM CHLORIDE 1000ML 1,000 ML IV ONE (14:09)
[2018-10-02] MEDS: 0.9 % SODIUM CHLORIDE 1000ML 1,000 ML IV PRN ×2 (15:30→20:41)
[2018-10-02] MEDS ORDERED: LACTULOSE 20 GM/30 ML UDC PO PRN (15:53)
[2018-10-02] MEDS: GABAPENTIN 300 MG CAPSULE PO SCH ×2 (16:53→22:19)
[2018-10-02 17:32] LABS: URINE APPEARANCE CLEAR; URINE BILIRUBIN NEGATIVE (NEGATIVE); URINE BLOOD NEGATIVE (NEGATIVE); URINE COLOR YELLOW; URINE GLUCOSE (UA) NEGATIVE (NEGATIVE); URINE KETONE NEGATIVE (NEGATIVE); URINE LEUKOCYTE ESTERASE NEGATIVE (NEGATIVE); URINE NITRITE NEGATIVE (NEGATIVE); URINE PROTEIN NEGATIVE (NEGATIVE); URINE UROBILINOGEN 0.2 E.U./dL (0.20 - 1.00)
[2018-10-02] MEDS ORDERED: LEVETIRACETAM 500 MG TABLET PO SCH (22:00)
[2018-10-02] MEDS ORDERED: ASPIRIN 81 MG TABEC PO SCH (22:00)
[2018-10-02] MEDS ORDERED: LANCETS MC SCH (22:00)
[2018-10-02] MEDS ORDERED: OXYCODONE HCL 5 MG TABLET PO ONE (22:32)
[2018-10-03] MEDS: 0.9 % SODIUM CHLORIDE 1000ML 1,000 ML IV PRN (04:39)
--- NOTE | 2018-10-03 05:10 | CT SCAN REPORT ---
EXAM: CT OF THE BRAIN WITHOUT CONTRAST HISTORY: SLURRED SPEECH. TECHNIQUE: Sequential axial images were obtained from the foramen magnum to the vertex without contrast administration. FINDINGS: The brain volume is normal. No large territorial infarct, hemorrhage , mass effect, or midline shift. No extraaxial fluid collection. The orbits appear normal. There is minimal sinus disease. IMPRESSION: NO ACUTE INTRACRANIAL ABNORMALITY BY CT EXAMINATION. JOB NUMBER: [id number] MTDD
[2018-10-03] MEDS ORDERED: LEVOTHYROXINE SODIUM 75 MCG TABLET PO SCH (07:00)
[2018-10-03] MEDS ORDERED: PANTOPRAZOLE SODIUM 40 MG TABLET PO SCH (07:00)
[2018-10-03 07:22] LABS: BASO % 0.6 % (0-6); EOS % 3.1 % (0-6); HEMATOCRIT 30.3 % (35.0-47.0); HEMOGLOBIN 9.3 gm/dl (11.6-16.0); LYMPH % 24.5 % (16-45); MEAN CELL VOLUME 92.7 fl (81-97); MEAN CORPUSCULAR HEMOGLOBIN 28.4 pg (27-33); MEAN CORPUSCULAR HGB CONC 30.7 g/dl (32-36); MEAN PLATELET VOLUME 11.6 fl (7.4-10.4); MONO % 10.8 % (0-9); PLATELET COUNT 62 K/uL (130-400); RED BLOOD COUNT 3.27 M/uL (3.80-5.40); RED CELL DISTRIBUTION WIDTH 14.4 % (11.5-14.5); WHITE BLOOD COUNT W/O DIFF 3.2 K/uL (4.2-12.2)
[2018-10-03 07:39] LABS: CREATININE 1.4 mg/dL (0.5-0.9)
--- NOTE | 2018-10-03 08:55 | History & Physical ---
History of Present Illness - Date of Service Date of Service for History & Physical: 10/03/18 - History of Present Illness Admitting Diagnosis: 1. Acute Hepatic Encephalopathy History of Present Illness: Ms. Lemus is a 63 y/o female with presentation of confusion and change in mentation over the past 24 hours. The patient was brought in by her boyfriend says that she was having slurring of speech, confusion and she says she felt dizzy. The patient reports a history of non-alcohol steatohepatitis and has been on lactulose daily since that time. She says that she has been missing doses of her lactulose because she has had such a busy schedule over the past few weeks. She denies headaches, nausea, vomiting, chest pain or shortness of breath. ED course: The patient had labs drawn revealing elevation in ammonia 115, CT scan was negative for acute infarct and EKG was within normal. Vital signs: BP: 125/46 HR: 63 RR: 16 T: 98.5 Sats%: 100% Travel Screening - Travel/Exposure Within Last 30 Days Have you traveled within the last 30 days?: No - Travel/Exposure Within Last Year Have you traveled outside the [place] in the last year?: No - Additonal Travel Details Have you been exposed to anyone with a communicable illness?: No - Travel Symptoms Symptom Screening: None Review of Systems Constitutional: Denies: Chills, Fever Eyes: Denies: Eye discharge ENT: Denies: Congestion Respiratory: Denies: Cough, Dyspnea Cardiovascular: Denies: Arrhythmia, Chest pain Endocrine: Reports: Fatigue Gastrointestinal: Denies: Abdominal pain Genitourinary: Denies: Dysuria Musculoskeletal: Denies: Back pain Skin: Denies: Bruising Past Medical History - SOCIAL HISTORY Smoking Status: Former smoker - RESPIRATORY Hx Respiratory Disorders: Yes - CARDIOVASCULAR Hx Cardio Disorders: Yes Hx Edema: Yes (at night) Hx Hypertension: Yes Comment:: high cholesterol - NEURO Hx Neuro Disorders: Yes Hx Neuropathy: Yes (tingling in toes rt foot) Hx Seizures: Yes (Oct 2016 elevated ammonia levels & UTI) - GI Hx GI Disorders: Yes Hx Liver Disease: Yes (fatty liver) Hx Ulcer: Yes (on meds for-protonix) Hx Cirrhosis: Yes (ODEN) Comment:: has a little bit of varices-Dr Carvajal 12/2016-improved - Hx Genitourinary Disorders: Yes Comment:: over 2 years since last peroid - ENDOCRINE Hx Endocrine Disorders: Yes Comment:: lately FBS 74-130 - MUSCULOSKELETAL Hx Musculoskeletal Disorders: Yes Hx Arthritis: Yes (back,ankles,hands) Comment:: spinal stenosis, herniated disk lower lumbar - PSYCH Hx Psych Problems: Yes Hx Anxiety: Yes (sometimes) - HEMATOLOGY/ONCOLOGY Hx Hematology/Oncology Disorders: Yes Hx Blood Disorders: Yes (low platelet) Hx Bruising: Yes (easy to bruise from BP cuffs) Hx Blood Transfusions: No Comment:: last platelets were 46,000. Family Medical History Any Significant Family History?: Yes Hx Alcohol Use: Father, Mother, Brother/Sister Hx Cancer: Mother, Brother/Sister Hx Depression: Father, Mother Hx Diabetes: Brother/Sister Hx Heart Disease: Father Hx HTN: Father, Mother, Children, Brother/Sister Hx Liver Disease: Brother/Sister Hx Stroke: Grandparents H&P Meds/Allergies - Allergies Allergies: Allergies Allergy/AdvReac Type Severity Reaction Status Date / Time No Known Drug Allergies Allergy Unverified 08/11/18 10:45 - Active Medications Active Medications: Current Medications Aspirin (Ecotrin (Ec)) 81 mg PO QHS [facility] Last Admin: 10/02/18 22:19 Dose: 81 mg Gabapentin (Neurontin) 300 mg PO TID [facility] Last Admin: 10/02/18 22:19 Dose: 300 mg Sodium Chloride () 1,000 mls @ 125 mls/hr IV .Q8H PRN PRN Reason: LARGE VOLUME IV Last Admin: 10/03/18 04:39 Dose: 125 mls/hr Insulin Detemir (Levemir Flextouch) 70 unit SQ DAILY [facility] Lactulose (Lactulose) 20 gm PO QID PRN PRN Reason: CONSTIPATION Levetiracetam (Keppra) 500 mg PO BID [facility] Last Admin: 10/02/18 22:19 Dose: 500 mg Levothyroxine Sodium (Synthroid) 75 mcg PO DAILYTHY [facility] Last Admin: 10/03/18 06:16 Dose: 75 mcg Lisinopril (Zestril) 5 mg PO DAILY [facility] Metoprolol Succinate (Toprol Xl) 25 mg PO DAILY [facility] Pantoprazole Sodium (Protonix) 40 mg PO DAILYAC [facility] Last Admin: 10/03/18 06:16 Dose: 40 mg Polyethylene Glycol (Miralax) 17 gm PO DAILY [facility] Spironolactone (Aldactone) 25 mg PO DAILY [facility] Physical Exam - Vital Signs Vital Signs: Vital Signs - Last 24 Hrs Temp Pulse Pulse Resp BP BP BP 10/03/18 05:00 97.9 F 65 14 128/52 10/03/18 01:00 98.4 F 73 14 114/40 10/02/18 21:01 98.1 F 70 14 121/33 10/02/18 17:53 97.5 F L 70 18 138/60 10/02/18 16:31 18 10/02/18 15:30 98.1 F 64 18 122/43 10/02/18 14:22 63 18 112/49 10/02/18 12:46 98.1 F 69 20 146/56 Pulse Ox 10/03/18 05:00 99 10/03/18 01:00 99 10/02/18 21:01 99 10/02/18 17:53 99 10/02/18 16:31 10/02/18 15:30 96 10/02/18 14:22 100 10/02/18 12:46 100 - General General Appearance: Alert, Oriented x3, Cooperative, No acute distress Limitations: No limitations - Head Head exam: Atraumatic, Normocephalic, Normal inspection - Eye Eye exam: Normal appearance, PERRL, EOMI - ENT Throat exam: Normal inspection. negative: Tonsillar erythema, Tonsillar exudate - Neck Neck exam: Normal inspection - Respiratory Respiratory exam: Normal lung sounds bilaterally. negative: Respiratory distress - Cardiovascular Cardiovascular Exam: Regular rate, Normal rhythm, Normal heart sounds Peripheral Pulses: 3+: Radial (R), Radial (L), Dorsalis Pedis (R), Dorsalis Pedis (L) - GI/Abdominal GI/Abdominal exam: Soft, Normal bowel sounds, Other (morbidly obese.). negative : Rebound, Rigid, Tenderness - Extremities Extremities exam: Normal inspection, Full ROM, Normal capillary refill. negative: Tenderness - Neurological Neurological exam: Alert, Normal gait, Oriented X3. negative: Abnormal gait, Motor sensory deficit - Psychiatric Psychiatric exam: negative: Anxious - Skin Skin exam: negative: Rash Results - Labs Result Diagrams: 10/03/18 07:00 10/03/18 07:00 Labs Last 24 Hours: Laboratory Results - last 24 hr 10/02/18 10/02/18 10/02/18 13:10 13:10 13:10 WBC 4.4 RBC 3.62 L Hgb 10.4 L Hct 33.4 L MCV 92.3 MCH 28.7 MCHC 31.1 L RDW 14.8 H Plt Count 94 L MPV 11.2 H Gran % 62.5 Lymphocytes % 22.8 Monocytes % 11.0 H Eosinophils % 3.0 Basophils % 0.7 PT 12.7 H INR 1.3 APTT 38.1 Sodium 143 Potassium 4.6 H Chloride 107 Carbon Dioxide 24.0 Anion Gap 12.0 BUN 37 H Creatinine 1.9 H Estimated GFR 28 Random Glucose 125 H Calcium 9.2 Total Bilirubin 1.00 AST 41 H ALT 32 Alkaline Phosphatase 116 H Ammonia Troponin T < 0.010 Total Protein 5.9 L Albumin 3.0 L Globulin 2.9 Albumin/Globulin Ratio 1.0 L Urine Color Urine Appearance Urine pH Ur Specific [place] Urine Protein Urine Glucose (UA) Urine Ketones Urine Blood Urine Nitrite Urine Bilirubin Urine Urobilinogen Ur Leukocyte Esterase 10/02/18 10/02/18 10/03/18 13:10 17:20 07:00 WBC 3.2 L RBC 3.27 L Hgb 9.3 L Hct 30.3 L MCV 92.7 MCH 28.4 MCHC 30.7 L RDW 14.4 Plt Count 62 L MPV 11.6 H Gran % 61.0 Lymphocytes % 24.5 Monocytes % 10.8 H Eosinophils % 3.1 Basophils % 0.6 PT INR APTT Sodium Potassium Chloride Carbon Dioxide Anion Gap BUN Creatinine Estimated GFR Random Glucose Calcium Total Bilirubin AST ALT Alkaline Phosphatase Ammonia 115 H Troponin T Total Protein Albumin Globulin Albumin/Globulin Ratio Urine Color Yellow Urine Appearance Clear Urine pH 7.5 Ur Specific [place] 1.015 Urine Protein Negative Urine Glucose (UA) Negative Urine Ketones Negative Urine Blood Negative Urine Nitrite Negative Urine Bilirubin Negative Urine Urobilinogen 0.2 Ur Leukocyte Esterase Negative 10/03/18 10/03/18 07:00 07:00 WBC RBC Hgb Hct MCV MCH MCHC RDW Plt Count MPV Gran % Lymphocytes % Monocytes % Eosinophils % Basophils % PT INR APTT Sodium 141 Potassium 4.2 Chloride 108 H Carbon Dioxide 23.0 Anion Gap 10.0 BUN 32 H Creatinine 1.4 H Estimated GFR 40 Random Glucose 159 H Calcium 8.9 Total Bilirubin AST ALT Alkaline Phosphatase Ammonia Cancelled 71 H Troponin T Total Protein Albumin Globulin Albumin/Globulin Ratio Urine Color Urine Appearance Urine pH Ur Specific [place] Urine Protein Urine Glucose (UA) Urine Ketones Urine Blood Urine Nitrite Urine Bilirubin Urine Urobilinogen Ur Leukocyte Esterase VTE H&P Assessment - Risk for VTE Risk for VTE: Yes Risk Level: High Risk Assessment Date: 10/03/18 Risk Assessment Time: 08:54 VTE Orders Placed or Will Be Placed: No VTE Reason for No Prophylaxis: Contraindicated (lower ext cellulitis) Plan - Detailed Diagnosis and Plan (1) Acute hepatic encephalopathy Current Visit: Yes Status: Acute Base Code: K72.00 - ACUTE AND SUBACUTE HEPATIC FAILURE WITHOUT COMA Comment: 10/03/18: - Pt has returned to baseline mental status. - Ammonia 115-->71 - Lactulose home dosing 30mg QAM, 45mg, 60mg PM - Lactulose 30mg QID ordered. - Follow up with GI on discharge (2) ODEN (nonalcoholic steatohepatitis) Current Visit: No Status: Acute Base Code: K75.81 - NONALCOHOLIC STEATOHEPATITIS (ODEN) Comment: 10/03/18: - Home lactulose dosing- 30ml qam, 45ml at noon; 30ml qpm - No bowel movements since being admitted. - Continue monitoring stool output, goal 2-3 soft stools daily. (3) CKD stage 3 due to type 2 diabetes mellitus Current Visit: No Status: Acute Base Code: E11.22 - TYPE 2 DIABETES MELLITUS W DIABETIC CHRONIC KIDNEY DISEASE; N18.3 - CHRONIC KIDNEY DISEASE, STAGE 3 (MODERATE) Comment: 10/03/18: - EGFR: 23 BUN/Cr: 37/1.9 - EGFR: 40 BUN/Cr: 32/1.4 - Fluid challenge with Nacl 0.9% @ 125mL/hr to be d/cd. (4) T2DM (type 2 diabetes mellitus) Current Visit: No Status: Acute Qualifiers: Base Code: E11.9 - TYPE 2 DIABETES MELLITUS WITHOUT COMPLICATIONS Comment: 10/03/18 - Levemir 70 SQ daily - ADA diet. Dietary consulted and counseled. (5) DVT prophylaxis Current Visit: No Status: Acute Base Code: [id number] - Comment: 10/03/18: - No pharmacological therapy - Lovenox contraindicated wtih platelet count of 51 2/2 chronic ITP - SCD's while in bed -encouraged ambulation (6) DNR (do not resuscitate) Current Visit: Yes Status: Acute Base Code: Z66 - DO NOT RESUSCITATE Comment: 10/03/18: - Pt wants to remain DNR
[2018-10-03] MEDS ORDERED: LACTULOSE 20 GM/30 ML UDC PO PRN (09:00)
[2018-10-03] MEDS: GABAPENTIN 300 MG CAPSULE PO SCH (09:34)
[2018-10-03] MEDS ORDERED: POLYETHYLENE GLY 17 GM PACKET PO SCH (10:00)
[2018-10-03] MEDS ORDERED: METOPROLOL SUCC 25 MG TAB.ER PO SCH (10:00)
[2018-10-03] MEDS ORDERED: SPIRONOLACTONE 25 MG TAB PO SCH (10:00)
[2018-10-03] MEDS ORDERED: LISINOPRIL 5 MG TABLET PO SCH (10:00)
[2018-10-03] MEDS ORDERED: LEVEMIR FLEXTOUCH 100 UNIT/ML INSULIN PEN SQ SCH (10:00)
[2018-10-03] MEDS ORDERED: BUMETANIDE 1 MG TABLET PO SCH (12:45)
[2018-10-03] MEDS ORDERED: LACTULOSE 20 GM/30 ML UDC PO SCH (14:00)
--- NOTE | 2018-10-03 14:04 | Discharge Summary ---
Providers Discharge Summary Date: 10/03/18 Date of admission: 10/02/18 15:09 Attending physician: AHRPREET REYNOLDS Primary care physician: Vicky Park N.P. Physical Exam - Vital Signs Vital Signs: Vital Signs - Last 24 Hrs Temp Pulse Resp BP BP Pulse Ox 10/03/18 13:00 66 18 137/61 99 10/03/18 09:00 98.5 F 63 16 125/46 100 10/03/18 08:41 18 10/03/18 05:00 97.9 F 65 14 128/52 99 10/03/18 01:00 98.4 F 73 14 114/40 99 10/02/18 21:01 98.1 F 70 14 121/33 99 10/02/18 17:53 97.5 F L 70 18 138/60 99 10/02/18 16:31 18 10/02/18 15:30 98.1 F 64 18 122/43 96 10/02/18 14:22 63 18 112/49 100 - General General Appearance: Alert, Oriented x3, Cooperative, No acute distress Limitations: No limitations - Head Head exam: Atraumatic, Normocephalic, Normal inspection - Eye Eye exam: Normal appearance, PERRL, EOMI - ENT Throat exam: Normal inspection. negative: Tonsillar erythema, Tonsillar exudate - Neck Neck exam: Normal inspection - Respiratory Respiratory exam: Normal lung sounds bilaterally. negative: Respiratory distress - Cardiovascular Cardiovascular Exam: Regular rate, Normal rhythm, Normal heart sounds Peripheral Pulses: 3+: Radial (R), Radial (L), Dorsalis Pedis (R), Dorsalis Pedis (L) - GI/Abdominal GI/Abdominal exam: Soft, Normal bowel sounds, Other (morbidly obese.). negative : Rebound, Rigid, Tenderness - Extremities Extremities exam: Normal inspection, Full ROM, Normal capillary refill. negative: Tenderness - Neurological Neurological exam: Alert, Normal gait, Oriented X3. negative: Abnormal gait, Motor sensory deficit - Psychiatric Psychiatric exam: negative: Anxious - Skin Skin exam: negative: Rash Hospitalization - Hospitalization Admission Diagnosis: 1. Acute Hepatic Encephalopathy - Problem List/Discharge Diagnosis (1) Acute hepatic encephalopathy Current Visit: Yes Status: Acute Base Code: K72.00 - ACUTE AND SUBACUTE HEPATIC FAILURE WITHOUT COMA Comment: 10/03/18: - Pt has returned to baseline mental status. - Ammonia 115-->71 - Lactulose home dosing 30mg QAM, 45mg, 60mg PM - Lactulose 30mg QID ordered. - Follow up with GI on discharge (2) ODEN (nonalcoholic steatohepatitis) Current Visit: No Status: Acute Base Code: K75.81 - NONALCOHOLIC STEATOHEPATITIS (ODEN) Comment: 10/03/18: - Home lactulose dosing- 30ml qam, 45ml at noon; 30ml qpm - No bowel movements since being admitted. - Continue monitoring stool output, goal 2-3 soft stools daily. (3) CKD stage 3 due to type 2 diabetes mellitus Current Visit: No Status: Acute Base Code: E11.22 - TYPE 2 DIABETES MELLITUS W DIABETIC CHRONIC KIDNEY DISEASE; N18.3 - CHRONIC KIDNEY DISEASE, STAGE 3 (MODERATE) Comment: 10/03/18: - EGFR: 23 BUN/Cr: 37/1.9 - EGFR: 40 BUN/Cr: 32/1.4 - Fluid challenge with Nacl 0.9% @ 125mL/hr to be d/cd. (4) T2DM (type 2 diabetes mellitus) Current Visit: No Status: Acute Discharge Diagnosis: Base Code: E11.9 - TYPE 2 DIABETES MELLITUS WITHOUT COMPLICATIONS Comment: 10/03/18 - Levemir 70 SQ daily - ADA diet. Dietary consulted and counseled. (5) DVT prophylaxis Current Visit: No Status: Acute Base Code: [id number] - Comment: 10/03/18: - No pharmacological therapy - Lovenox contraindicated wtih platelet count of 51 2/2 chronic ITP - SCD's while in bed -encouraged ambulation (6) DNR (do not resuscitate) Current Visit: Yes Status: Acute Base Code: Z66 - DO NOT RESUSCITATE Comment: 10/03/18: - Pt wants to remain DNR - Hospitalization Course Hospital Course: Ms. Lemus is a 63 y/o female with presentation of confusion and change in mentation over the past 24 hours. The patient was brought in by her boyfriend says that she was having slurring of speech, confusion and she says she felt dizzy. The patient reports a history of non-alcohol steatohepatitis and has been on lactulose daily since that time. She says that she has been missing doses of her lactulose because she has had such a busy schedule over the past few weeks. She denies headaches, nausea, vomiting, chest pain or shortness of breath. ED course: The patient had labs drawn revealing elevation in ammonia 115, CT scan was negative for acute infarct and EKG was within normal. Vital signs: BP: 125/46 HR: 63 RR: 16 T: 98.5 Sats%: 100% The patient has had several bowel movements and her mentation is back to baseline. Her labs done indicate a drop in her ammonia since starting Lactulose and she other labs reveal chronic anemia and stable chronic kidney disease. The patient is stable for discharge and can follow up in the office once being seen by GI for serial paracentesis. Procedures: Imaging and X-Rays 10/02/18 12:58 HEAD WO CONTRAST [CT] Stat Cardiology Procedures 10/02/18 12:57 EKG NOW 10/02/18 15:53 Transfer Man .Continuous EKG QDX2@0600 Abnormal Labs: Abnormal Lab Results 10/02/18 10/02/18 10/02/18 Range/Units 13:10 13:10 13:10 WBC (4.2-12.2) K/uL RBC 3.62 L (3.80-5.40) M/uL Hgb 10.4 L (11.6-16.0) gm/dl Hct 33.4 L (35.0-47.0) % MCHC 31.1 L (32-36) g/dl RDW 14.8 H (11.5-14.5) % Plt Count 94 L (130-400) K/uL MPV 11.2 H (7.4-10.4) fl Monocytes % 11.0 H (0-9) % PT 12.7 H (9.5-12.1) SECONDS Potassium 4.6 H (3.4-4.5) mmol/L Chloride (98-107) mmol/L BUN 37 H (8-23) mg/dL Creatinine 1.9 H (0.5-0.9) mg/dL Random Glucose 125 H (74-109) mg/dL AST 41 H (10.0-35.0) U/L Alkaline Phosphatase 116 H (35-104) U/L Ammonia (11.0-51.0) umol/L Total Protein 5.9 L (6.6-8.7) g/dL Albumin 3.0 L (4.0-5.0) g/dL Albumin/Globulin Ratio 1.0 L (1.1-1.8) 10/02/18 10/03/18 10/03/18 Range/Units 13:10 07:00 07:00 WBC 3.2 L (4.2-12.2) K/uL RBC 3.27 L (3.80-5.40) M/uL Hgb 9.3 L (11.6-16.0) gm/dl Hct 30.3 L (35.0-47.0) % MCHC 30.7 L (32-36) g/dl RDW (11.5-14.5) % Plt Count 62 L (130-400) K/uL MPV 11.6 H (7.4-10.4) fl Monocytes % 10.8 H (0-9) % PT (9.5-12.1) SECONDS Potassium (3.4-4.5) mmol/L Chloride 108 H (98-107) mmol/L BUN 32 H (8-23) mg/dL Creatinine 1.4 H (0.5-0.9) mg/dL Random Glucose 159 H (74-109) mg/dL AST (10.0-35.0) U/L Alkaline Phosphatase (35-104) U/L Ammonia 115 H (11.0-51.0) umol/L Total Protein (6.6-8.7) g/dL Albumin (4.0-5.0) g/dL Albumin/Globulin Ratio (1.1-1.8) 10/03/18 Range/Units 07:00 WBC (4.2-12.2) K/uL RBC (3.80-5.40) M/uL Hgb (11.6-16.0) gm/dl Hct (35.0-47.0) % MCHC (32-36) g/dl RDW (11.5-14.5) % Plt Count (130-400) K/uL MPV (7.4-10.4) fl Monocytes % (0-9) % PT (9.5-12.1) SECONDS Potassium (3.4-4.5) mmol/L Chloride (98-107) mmol/L BUN (8-23) mg/dL Creatinine (0.5-0.9) mg/dL Random Glucose (74-109) mg/dL AST (10.0-35.0) U/L Alkaline Phosphatase (35-104) U/L Ammonia 71 H (11.0-51.0) umol/L Total Protein (6.6-8.7) g/dL Albumin (4.0-5.0) g/dL Albumin/Globulin Ratio (1.1-1.8) Condition at Discharge: (2) Stable Discharge Medications - Discharge Medications Home Medications: Ambulatory Orders Aspirin [Ecotrin] 81 mg PO QHS 07/02/15 [Last Taken 1 Day Ago ~10/28/16] Ergocalciferol (Vitamin D2) [Vitamin D2] 2,000 unit PO DAILY tab 11/04/15 [ Last Taken 1 Day Ago ~10/28/16] Spironolactone 25 mg PO DAILY tab 09/13/18 [Last Taken Unknown] Discharge Plan - Discharge Instructions Diet at Discharge: Diabetic Diet, Low Fat, Low Cholesterol Additional Instructions: No new medications have been prescribed for you. You are to resume your home medications at the prescribed doses. Please follow up with Dr. Reynolds on Oct [address] Myers's office regarding scheduled paracentsis as discussed. If you have any questions or concerns please call the office. It is important for you not to skip any doses of any of your medications. Quality Measures - Quality Measures Quality Measures: Documentation of Current Medications in Medical Record, Screening for High Blood Pressure and F/U Documented - Current Medications Quality Measure: Measure #130: Documentation of Current Medications Documentation of Current Medications: <Current Medications Documented/Reviewed> [[id number]] - Blood Pressure Screening Quality Measure: Screening for High Blood Pressure and Follow-Up Documented Does Patient Have Any of the Following: Active Dx of HTN Blood Pressure Classification: Hypertensive Reading Systolic Measurement: 146 Diastolic Measurement: 56 Screening for High Blood Pressure: Patient Exclusion, Hx of HTN [G9744] - Elder Abuse Suspicion Index EASI Reference Information: Jennifer JOHNSON, Irvin C, Hillary Demarco, Simon Zaman.Development and validation of a tool to assist physicians identification of elder abuse: The Elder Abuse Suspicion Index (EASI ). Journal of Elder Abuse and Neglect, 2008; 20 (3): 276-300.
== END 2018-10-03 15:00 | disposition home or self-care (01) ==
LOC: ER 12:41 → INTOOBSV 15:09 → MEDSURG 15:09
PROVIDERS: ADMIT Internal Medicine; ATTEND Internal Medicine
DX: K72.00 Acute and subacute hepatic failure without coma (principal); K75.81 Nonalcoholic steatohepatitis (NASH); E11.22 Type 2 diabetes mellitus with diabetic chronic kidney disease; N18.3 Chronic kidney disease, stage 3 (moderate); Z66 Do not resuscitate; I10 Essential (primary) hypertension; D69.59 Other secondary thrombocytopenia
CPT/HCPCS: 99285 ×2; 96360; 82140 ×2; 85025 ×2; 85730; 85610; 80048; 80053; 81003; 84484; 70450; 93005 ×2; 93010; G0378 ×2; 99236; J7030

== ENCOUNTER 2019-02-12 12:47 | Observation (INO) | payer MEDICARE, OTHER ==
--- NOTE | 2019-02-12 13:22 | Emergency Department Record ---
History of Present Illness - General Chief Complaint: Slurred speech Stated Complaint: SLURRED SPEACH,CONFUSION Time Seen by Provider: 02/12/19 13:03 Source: Patient, Family Mode of Arrival: Wheelchair Limitations: No limitations - History of Present Illness Initial Comments: The patient is here due to waking up at 8am with slightly slurred speech. Her family state she has had the slurred speech slightly for the last couple of days along with mild confusion. Presently she is doing better. The patient does have a hx of liver dz with episodes of elevated ammonia levels that present exactly like this. She denies any trauma, fall, injury, fever, chills, AP, CP or SOB. Onset/Timin -: Hour(s) History of same: No Place: Home Severity: Mild Quality: Improving Improves With: None Worsens With: None On Anticoagulants: No Context: Gradual onset Associated Symptoms: Denies other symptoms - [place] Coma Scale Eye Response: (4) Open spontaneously Motor Response: (6) Obeys commands Verbal Response: (5) Oriented [place] Total: 15 - Symptoms of Stroke Onset of Symptoms Date: 02/12/19 Onset of Symptoms Time: 08:00 Symptom Onset Unknown: No Symptoms of stroke: Slurred Speech - Related Data Home Medications: Home Medications Medication Instructions Recorded Confirmed Last Taken Insulin Glargine,Hum.rec.anlog 40 unit SQ QHS 02/12/19 02/12/19 Unknown [Lantus] Allergies/Adverse Reactions: Allergies Allergy/AdvReac Type Severity Reaction Status Date / Time No Known Drug Allergies Allergy Unverified 12/21/18 12:51 Travel Screening - Travel/Exposure Within Last 30 Days Have you traveled within the last 30 days?: No Review of Systems Constitutional: Denies: Chills, Fever Eyes: Denies: Eye discharge ENT: Denies: Congestion Respiratory: Denies: Cough, Dyspnea Cardiovascular: Denies: Arrhythmia, Chest pain Endocrine: Reports: Fatigue Gastrointestinal: Denies: Nausea Genitourinary: Denies: Dysuria Musculoskeletal: Denies: Arthralgia Skin: Denies: Bruising Past Medical History - SOCIAL HISTORY Smoking Status: Former smoker - RESPIRATORY Hx Respiratory Disorders: Yes - CARDIOVASCULAR Hx Cardio Disorders: Yes Hx Edema: Yes (at night) Hx Hypertension: Yes Comment:: high cholesterol - NEURO Hx Neuro Disorders: Yes Hx Neuropathy: Yes (tingling in toes rt foot) Hx Seizures: Yes (Oct 2016 elevated ammonia levels & UTI) - GI Hx GI Disorders: Yes Hx Liver Disease: Yes (fatty liver) Hx Ulcer: Yes (on meds for-protonix) Hx Cirrhosis: Yes (ODEN) Comment:: has a little bit of varices-Dr Carvajal 12/2016-improved - Hx Genitourinary Disorders: Yes Comment:: over 2 years since last peroid - ENDOCRINE Hx Endocrine Disorders: Yes Comment:: lately FBS 74-130 - MUSCULOSKELETAL Hx Musculoskeletal Disorders: Yes Hx Arthritis: Yes (back,ankles,hands) Comment:: spinal stenosis, herniated disk lower lumbar - PSYCH Hx Psych Problems: Yes Hx Anxiety: Yes (sometimes) - HEMATOLOGY/ONCOLOGY Hx Hematology/Oncology Disorders: Yes Hx Blood Disorders: Yes (low platelet) Hx Bruising: Yes (easy to bruise from BP cuffs) Hx Blood Transfusions: No Comment:: last platelets were 46,000. Family Medical History Any Significant Family History?: Yes Hx Alcohol Use: Father, Mother, Brother/Sister Hx Cancer: Mother, Brother/Sister Hx Depression: Father, Mother Hx Diabetes: Brother/Sister Hx Heart Disease: Father Hx HTN: Father, Mother, Children, Brother/Sister Hx Liver Disease: Brother/Sister Hx Stroke: Grandparents Physical Exam - General General Appearance: Alert, Oriented x3, Cooperative, No acute distress - Head Head exam: Atraumatic, Normocephalic, Normal inspection - Eye Eye exam: Normal appearance, PERRL, EOMI - ENT Throat exam: Normal inspection. negative: Tonsillar erythema, Tonsillar exudate - Neck Neck exam: Normal inspection, Full ROM. negative: Tenderness - Respiratory Respiratory exam: Normal lung sounds bilaterally. negative: Respiratory distress - Cardiovascular Cardiovascular Exam: Regular rate, Normal rhythm, Normal heart sounds - GI/Abdominal GI/Abdominal exam: Soft, Normal bowel sounds. negative: Tenderness - Extremities Extremities exam: Normal inspection, Full ROM, Normal capillary refill. negative: Tenderness - Neurological Neurological exam: Alert, Oriented X3. negative: Altered, Motor sensory deficit - Psychiatric Psychiatric exam: negative: Anxious Course Vital Signs 02/12/19 12:57 Temperature 98.0 F Pulse Rate 64 Respiratory 18 Rate Blood Pressure 137/50 Pulse Ox 100 - Reevaluation(s) Reevaluation #1: The patient is doing better at this time. She does have intermittent mild slurred speech but is able to get up and walk with her cane. I did discuss the lab tests and CT scan and did recommend an overnight hospital admission to decrease the blood ammonia and the patient did agree. I then did discuss the case with Daysi ([employer]) and she does accept the admission for Dr. Reynolds. 02/12/19 15:24 Medical Decision Making - Data Complexity MDM Data: Labs Ordered and/or Reviewed, X-Ray Ordered and/or Reviewed, EKG Ordered and/or Reviewed - Lab Data Result diagrams: 02/12/19 14:00 02/12/19 14:00 - EKG Data -: EKG Interpreted by Me EKG: No Acute Changes, Normal EKG - Radiology Data Radiology results: Report reviewed (Head CT: Neg for any acute changes.) Disposition Disposition: Admit Clinical Impression: Acute hepatic encephalopathy, DNR (do not resuscitate) Disposition: Still a Patient at [facility] Decision to Admit: Admit from ER Decision to Admit Date: 02/12/19 Decision to Admit Time: 15:25 Time Discussed w/Accepting Physician: 15:26 Condition: (2) Stable Time of Disposition: 15:26 Quality - Quality Measures Quality Measures: N/A - Blood Pressure Screening View Details: Yes Does Patient Have Any of the Following: No Blood Pressure Classification: Pre-Hypertensive BP Reading Systolic Measurement: 135 Diastolic Measurement: 59 Screening for High Blood Pressure: < Pre-Hypertensive BP, F/U Documented > [ G8950] Pre-Hypertensive Follow-up Interventions: Referral to alternative/primary care provider.
[2019-02-12 14:04] LABS: BASO % 0.5 % (0-6); EOS % 0.3 % (0-6); GRAN % 65.4 % (47-80); HEMATOCRIT 35.3 % (35.0-47.0); HEMOGLOBIN 10.7 gm/dl (11.6-16.0); MEAN CELL VOLUME 86.3 fl (81-97); MEAN CORPUSCULAR HGB CONC 30.3 g/dl (32-36); MEAN PLATELET VOLUME 12.9 fl (7.4-10.4); MONO % 11.8 % (0-9); PLATELET COUNT 62 K/uL (130-400); RED BLOOD COUNT 4.09 M/uL (3.80-5.40); RED CELL DISTRIBUTION WIDTH 14.8 % (11.5-14.5); WHITE BLOOD COUNT W/O DIFF 3.8 K/uL (4.2-12.2)
[2019-02-12 14:18] LABS: BILIRUBIN,TOTAL 1.1 mg/dL (0.2-1.0); CREATININE 1.6 mg/dL (0.5-0.9); MEAN CORPUSCULAR HEMOGLOBIN 26.1 pg (27-33)
[2019-02-12 14:19] LABS: TOTAL PROTEIN 6.9 g/dL (6.6-8.7)
[2019-02-12 14:20] LABS: INR 1.3; PARTIAL THROMBOPLASTIN TIME 22.4 SECONDS (24.5-39.1); PROTHROMBIN TIME (PATIENT) 12.8 SECONDS (9.5-12.1)
[2019-02-12 14:24] LABS: ALBUMIN 3.2 g/dL (4.0-5.0); BILIRUBIN,DIRECT 0.3 mg/dL (0-0.3)
[2019-02-12] MEDS ORDERED: LACTULOSE 20 GM/30 ML UDC PO ONE (14:28)
[2019-02-12] MEDS ORDERED: LACTULOSE 20 GM/30 ML UDC PO PRN (15:40)
[2019-02-12] MEDS: GABAPENTIN 300 MG CAPSULE PO SCH ×2 (17:06→22:08)
[2019-02-12] MEDS: 0.9 % SODIUM CHLORIDE 1000ML 1,000 ML IV PRN (17:08)
[2019-02-12] MEDS: OXYCODONE SR 10 MG TAB.ER.12H PO SCH ×2 (17:44→22:08)
[2019-02-12] MEDS ORDERED: [UNRECOGNIZED DRUG - OTHER] MC SCH (18:00)
[2019-02-12] MEDS ORDERED: INSULIN MC SCH (18:00)
[2019-02-12] MEDS: LACTULOSE 20 GM/30 ML UDC PO SCH ×2 (18:06→22:08)
[2019-02-12] MEDS ORDERED: LEVEMIR FLEXTOUCH 100 UNIT/ML INSULIN PEN SQ SCH (22:00)
--- NOTE | 2019-02-13 05:15 | CT SCAN REPORT ---
EXAM: NONCONTRAST CT OF THE BRAIN HISTORY: SLURRED SPEECH. TECHNIQUE: Noncontrast CT of the brain was obtained. Comparison: CT of the brain 10/02/18. FINDINGS: No midline shift, mass effect, or abnormal intra or extraaxial fluid collection. No cerebral edema, focal mass, or intracranial hemorrhage detected. The ventricles are within expected size range for patient's age. The basal cisterns are not effaced. No displaced calvarial fracture. The mastoid air cells are clear. Partial opacification of the right ethmoid air cells. The paranasal sinuses are otherwise clear. IMPRESSION: 1. NO ACUTE INTRACRANIAL FINDINGS. 2. MILD RIGHT ETHMOID AIR CELL SINUS DISEASE. JOB NUMBER: [id number] [facility]
[2019-02-13] MEDS: 0.9 % SODIUM CHLORIDE 1000ML 1,000 ML IV PRN (05:23)
[2019-02-13 06:58] LABS: BASO % 0.3 % (0-6); EOS % 0.6 % (0-6); GRAN % 64.3 % (47-80); HEMATOCRIT 30.3 % (35.0-47.0); LYMPH % 21.1 % (16-45); MEAN CELL VOLUME 88.6 fl (81-97); MEAN CORPUSCULAR HEMOGLOBIN 26.3 pg (27-33); MEAN CORPUSCULAR HGB CONC 29.7 g/dl (32-36); MEAN PLATELET VOLUME 12.1 fl (7.4-10.4); MONO % 13.7 % (0-9); RED BLOOD COUNT 3.42 M/uL (3.80-5.40); WHITE BLOOD COUNT W/O DIFF 3.4 K/uL (4.2-12.2)
[2019-02-13] MEDS ORDERED: LEVOTHYROXINE SODIUM 75 MCG TABLET PO SCH (07:00)
[2019-02-13 07:16] LABS: CREATININE 1.8 mg/dL (0.5-0.9)
[2019-02-13 08:05] LABS: PLATELET COUNT 50 K/uL (130-400)
[2019-02-13] MEDS ORDERED: OXYCODONE HCL 5 MG TABLET PO SCH (10:00)
[2019-02-13] MEDS ORDERED: SPIRONOLACTONE 25 MG TAB PO SCH (10:00)
[2019-02-13] MEDS ORDERED: METOPROLOL SUCC 25 MG TAB.ER PO SCH (10:00)
[2019-02-13] MEDS ORDERED: POLYETHYLENE GLY 17 GM PACKET PO SCH (10:00)
[2019-02-13] MEDS ORDERED: LISINOPRIL 5 MG TABLET PO SCH (10:00)
[2019-02-13] MEDS ORDERED: BUMETANIDE 1 MG TABLET PO SCH (10:00)
[2019-02-13] MEDS ORDERED: PANTOPRAZOLE SODIUM IV 40 MG VIAL IV SCH (10:00)
[2019-02-13] MEDS ORDERED: 0.9 % SODIUM CHLORIDE 10ML SYR IVP ONE (11:21)
[2019-02-13] MEDS ORDERED: HEPARIN SODIUM FLUSH 100 UNITS/ML SYR 5ML IV ONE (11:21)
[2019-02-13] MEDS: LACTULOSE 20 GM/30 ML UDC PO SCH ×2 (11:29→14:51)
[2019-02-13] MEDS ORDERED: RIFAXIMIN 550 MG TABLET PO SCH (11:30)
[2019-02-13] MEDS: GABAPENTIN 300 MG CAPSULE PO SCH (11:30)
--- NOTE | 2019-02-13 13:16 | Discharge Note ---
VTE H&P Assessment - Risk for VTE Risk for VTE: Yes Risk Level: Moderate Risk Assessment Date: 02/13/19 Risk Assessment Time: 13:03 VTE Orders Placed or Will Be Placed: No VTE Reason for No Prophylaxis: Contraindicated (thrombocytopenia) Discharge Medications - Discharge Medications Prescriptions: Lactulose 20 gm PO QID #3600 ml Rifaximin [Xifaxan] 550 mg PO BID #60 tablet Home Medications: Ambulatory Orders Ergocalciferol (Vitamin D2) [Vitamin D2] 2,000 unit PO DAILY tab 11/04/15 [ Last Taken 1 Day Ago ~10/28/16] Ascorbic Acid [Vitamin C] 500 mg PO DAILY tab 12/21/18 [Last Taken Unknown] Insulin Glargine,Hum.rec.anlog [Lantus] 20 unit SQ QHS #0 02/13/19 [Last Taken Unknown] Lactulose 20 gm PO QID #3600 ml 02/13/19 [Last Taken Unknown] Oxycodone HCl 5 mg PO TID PRN #90 tab 02/13/19 [Last Taken Unknown] Rifaximin [Xifaxan] 550 mg PO BID #60 tablet 02/13/19 [Last Taken Unknown] Discharge Note - Date Date of Discharge Note: 02/13/19 Disposition: Home, Self-Care Condition: (2) Stable Additional Instructions: use lactulose 30ml (20 gm ) four times a day to make sure 3-4 stools per day if able to get rifaximin 550 mg twice a day follow up with Dr Reynolds in 3-7 days Forms: Patient Portal Access Activity at Discharge: Increase Activity as Tolerated Diet at Discharge: Diabetic Diet
--- NOTE | 2019-02-13 14:50 | Discharge Summary ---
DATE: 02/13/2019 DISCHARGE DIAGNOSES: 1. Hepatic encephalopathy, resolving. Her mental status is totally clear and back to her baseline. 2. Nonalcoholic steatohepatitis (ODEN) liver disease. 3. Thrombocytopenia. 4. Diabetes mellitus. 5. Hypothyroidism. 6. Hypercholesterolemia. 7. Osteoarthritis in back, ankles, hands. 8. Spinal stenosis. 9. Herniated disc lower lumbar. 10. Anxiety. ATTENDING PHYSICIAN: Jose Rodriguez DO REASON FOR HOSPITALIZATION: Confusion and hepatic encephalopathy. This 64-year-old female came into the emergency department with some slurred speech. Much better when she arrived in the emergency department. She has liver disease with ODEN and has had elevated ammonia levels before. She was admitted to the hospital by Dr. Samayoa for further evaluation and care. SIGNIFICANT FINDINGS: CT of her head was negative, no acute findings. She has elevated liver enzymes of 81 in the emergency department, 288 today; however, she is mentally clear and back to her baseline. The lactulose is working. She has had 3 loose stools since coming into the hospital. Her potassium is 4.4, BUN 36, creatinine 1.8, glucose 128. WBC 3400, hemoglobin 9.0, platelet count is low at 50,000. PT/INR is 1.3. THERAPY PROVIDED: She was placed on 30 mL of lactulose which is 20 g 4 times a day. Started her on rifaximin 550 mg b.i.d. She had her first dose of that. She may not be able to afford that, according to the and the patient. She is back to her baseline. At this point, I feel she can safely go home and follow up with Dr. Reynolds and let this clear at home with using lactulose 4 times a day 30 mL a dose. HOSPITAL COURSE: Improved. DISCHARGE INSTRUCTIONS: Follow up with Dr. Reynolds in 3-7 days. Use the lactulose 20 g, or 30 mL 4 times a day so she has 3-4 stools a day. If able to get the rifaximin, 550 mg b.i.d. Continue her home medications. MTDD
--- NOTE | 2019-02-14 08:50 | History and Physical Report ---
DATE OF ADMISSION: 02/12/2019 CHIEF COMPLAINT: Slurred speech, hepatic encephalopathy. HISTORY OF PRESENT ILLNESS: This 64-year-old female presented to the emergency department, evaluated by Dr. Samayoa with some slurred speech. Family said it could be her hepatic encephalopathy which she has had in the past. She has liver disease and episodes of elevated pneumonia from ODEN (nonalcoholic steatohepatitis) of the liver. She denies any falls, traumas, chills, headaches, abdominal pain, chest pain, or shortness of breath. She was diagnosed with acute encephalopathy and admitted to the hospital with lactulose. She may not have been taking her lactulose the way she is supposed to take it. Patient of Dr. Reynolds's. PAST SURGICAL HISTORY: She has had a , gallbladder, tubes tied, carpal tunnel x2, rectal fissure repair, heart cath 2010, liver biopsy, back rhizotomy procedures, appendectomy, EGD, and colonoscopy. PAST MEDICAL HISTORY: Hypercholesterolemia, exertional dyspnea, morbid obesity, neuropathy of the legs, ODEN liver disease, GERD, some esophageal varices, arthritis of her back, ankles, hands, spinal stenosis, herniated disc, thrombocytopenia. MEDICATIONS: 1. Lantus insulin 20-40 units at night. 2. Spironolactone 25 mg daily. 3. Silver sulfadiazine for the buttocks where she has a wound once a week. 4. MiraLax 1 package daily. 5. Protonix 40 mg daily. 6. Oxycodone 5 mg t.i.d. p.r.n. 7. Toprol-XL 25 mg daily. 8. Lisinopril 5 mg daily. 9. Levothyroxine 75 mcg q.a.m. 10. Gabapentin 300 mg t.i.d. 11. Bumex 2 mg daily. 12. Vitamin D 2000 units daily. 13. Lipitor 40 mg at h.s. 14. Vitamin C 500 mg daily. 15. Lactulose. She was taking 10 g 3 times a day, which has been increased to 20 g 4 times a day in the hospital. ALLERGIES: No known drug allergies. FAMILY/PSYCHOSOCIAL HISTORY: Alcohol use in father, mother, brother, and sister. Cancer in mother, brother, and sister. Depression in father and mother. Diabetes in brother and sister. Heart disease in father. Hypertension in the father, mother, children, brothers, and sisters. Liver disease in brother, sisters. Stroke in the grandparents. Former smoker. Quit in 1997. No alcohol use or drug use. REVIEW OF SYSTEMS: HEENT: No upper respiratory infection symptoms, cough, cold, or congestion. Cardiovascular: No chest pain, palpitations, or arrhythmia. Respiratory: No cough, cold, or congestion. Gastrointestinal: No nausea, vomiting, diarrhea, black stools, or bloody stools. Genitourinary: No dysuria, hematuria, frequency, or burning on urination. Musculoskeletal: She has joint and back and hand and hip and knee pains from her excess weight and degenerative joint disease. Neurological: No CVA, paralysis, or paresthesias. Had a history of hepatic encephalopathy. Endocrine: No diabetes or thyroid disease. Integument: No rash, ulcers, change in moles, or yellow skin. PHYSICAL EXAMINATION: VITALS: Height 5 feet 2 inches, weight 291 pounds. Temperature 98.0, pulse 68, blood pressure 113/42, respiratory rate 16, pulse ox 99% on room air. HEENT: Pupils are equal, round, and reactive to light and accommodation. Extraocular muscles are intact. Throat is clear. Nose is clear. Tympanic membranes are dye. NECK: Supple. No jugular venous distention. No hepatojugular reflux. No carotid bruits. Thyroid is smooth. CARDIOVASCULAR: Regular rate and rhythm without murmurs, clicks, rubs, or gallops. RESPIRATORY: Clear to auscultation. Breath sounds equal bilaterally. ABDOMEN: Soft, nontender. No hepatosplenomegaly, no masses, no tenderness. Bowel sounds are active. No bruits. EXTREMITIES: No pitting edema. No cyanosis, no clubbing. Full range of motion. Peripheral pulses are good. BREASTS: Exam deferred. GYNECOLOGICAL: Exam deferred. RECTAL: Exam deferred. NEUROLOGIC: Cranial nerves II-XII intact. No gross defects. Sensation normal, strength normal. Deep tendon reflexes equal bilaterally with Babinski negative. MENTAL STATUS: Alert and oriented x3. She is back to her baseline, taking appropriately. IMPRESSION: 1. Hepatic encephalopathy. 2. Nonalcoholic steatohepatitis liver disease. 3. Osteoarthritis of the back, hips, knees, and hands. 4. Diabetes mellitus type 2. PLAN: Lactulose and we will also start rifampin in the hospital; however, the cost of it is prohibitive and they cannot get it outpatient, so we will just increase her lactulose to 20 g 4 times a day to help control her ammonia levels. She is doing much better. We will plan to discharge today. MICHELE
== END 2019-02-13 15:45 | disposition home or self-care (01) ==
LOC: ER 12:47 → MEDSURG 15:30
PROVIDERS: ADMIT Internal Medicine; ATTEND Internal Medicine
DX: K72.00 Acute and subacute hepatic failure without coma (principal); R41.0 Disorientation, unspecified; E78.00 Pure hypercholesterolemia, unspecified; K75.81 Nonalcoholic steatohepatitis (NASH); K76.9 Liver disease, unspecified; G62.9 Polyneuropathy, unspecified; R06.02 Shortness of breath; M19.90 Unspecified osteoarthritis, unspecified site; Z87.891 Personal history of nicotine dependence; Z98.61 Coronary angioplasty status; Z66 Do not resuscitate; Z86.2 Personal history of diseases of the blood and blood-forming organs and certain disorders involving the immune mechanism; Z86.69 Personal history of other diseases of the nervous system and sense organs
CPT/HCPCS: 82140 ×2; 85025 ×2; 85730; 85610; 80076; 80048 ×2; 36416 ×2; 82948 ×2; 70450; 93005; 93010; G0378 ×2; J1642; J1815; 99285; C9113

== ENCOUNTER 2019-03-17 17:10 | Emergency (ER) | payer MEDICARE, OTHER ==
--- NOTE | 2019-03-17 17:39 | Emergency Department Record ---
History of Present Illness - General Chief complaint: Bite Insect/other Stated complaint: HAS A BUG INSIDE A BLISTER ON LEG Time Seen by Provider: 03/17/19 17:30 Source: Patient Mode of Arrival: Ambulatory - History of Present Illness Initial comments: The patient is here because her left calf has a chronic skin polyp which bled recently. She is wondering if it has a tick in it because some family members had ticks on them recently. She is a diabetic with chronic leg cellulitis, and has several skin polyps on her lower legs. She is a diabetic on insulin and check her BS daily.It has been running the usual levels under 200, and has no other symptoms of fevers, chills or other acute illness. She does say that her tetanus is NOT UTD. The atient checked her blood sugar today and it was slightly over 100. MD complaint: Lesion Onset/Timin -: Days(s) Hx Tetanus Toxoid Vaccination: (unsure) Year of Tetanus Vaccination: doesnt know Severity: Moderate Severity scale (1-10): 1 Quality: Aching, Burning Consistency: Constant, Intermittent - Related Data Home Medications Medication Instructions Recorded Confirmed Last Taken Insulin Glargine,Hum.rec.anlog 32 unit SQ QPM 03/17/19 03/17/19 1 Day Ago [Lantus] ~03/16/19 Oxycodone HCl 5 mg PO TID PRN 03/17/19 03/17/19 1 Day Ago ~03/16/19 Previous Rx's Medication Instructions Recorded Lactulose 20 gm PO QID #3600 ml 02/13/19 Allergies Allergy/AdvReac Type Severity Reaction Status Date / Time No Known Drug Allergies Allergy Verified 03/17/19 17:21 Travel Screening - Travel/Exposure Within Last 30 Days Have you traveled within the last 30 days?: No - Travel/Exposure Within Last Year Have you traveled outside the [place] in the last year?: No - Additonal Travel Details Have you been exposed to anyone with a communicable illness?: No - Travel Symptoms Symptom Screening: None Review of Systems Reviewed: No additional complaints except as noted below Constitutional: Reports: As per HPI. Denies: Chills, Fever, Malaise, Night sweats, Weakness, Weight change Eyes: Reports: As per HPI. Denies: Eye discharge, Eye pain, Photophobia, Vision change ENT: Reports: As per HPI. Denies: Congestion, Dental pain, Ear pain, Epistaxis, Hearing loss, Throat pain Respiratory: Reports: As per HPI. Denies: Cough, Dyspnea, Hemoptysis, Stridor, Wheezes Cardiovascular: Reports: As per HPI. Denies: Arrhythmia, Chest pain, Dyspnea on exertion, Edema, Murmurs, Orthopnea, Palpitations, Paroxysmal nocturnal dyspnea, Rheumatic Fever, Syncope Endocrine: Reports: As per HPI. Denies: Fatigue, Heat or cold intolerance, Polydipsia, Polyuria Gastrointestinal: Reports: As per HPI. Denies: Abdominal pain, Constipation, Diarrhea, Hematemesis, Hematochezia, Melena, Nausea, Vomiting Genitourinary: Reports: As per HPI. Denies: Abnormal menses, Discharge, Dyspareunia, Dysuria, Frequency, Hematuria, Incontinence, Retention, Urgency Musculoskeletal: Reports: As per HPI. Denies: Arthralgia, Back pain, Gout, Joint swelling, Myalgia, Neck pain Skin: Reports: As per HPI. Denies: Bruising, Change in color, Change in hair/nails, Lesions, Pruritus, Rash Neurological: Reports: As per HPI. Denies: Abnormal gait, Confusion, Headache, Numbness, Paresthesias, Seizure, Tingling, Tremors, Vertigo, Weakness Psychiatric: Reports: As per HPI. Denies: Anxiety, Auditory hallucinations, Depression, Homicidal thoughts, Suicidal thoughts, Visual hallucinations Hematological/Lymphatic: Reports: As per HPI. Denies: Anemia, Blood Clots, Easy bleeding, Easy bruising, Swollen glands Past Medical History - SOCIAL HISTORY Smoking Status: Former smoker Alcohol Use: None Drug Use: None - RESPIRATORY Hx Respiratory Disorders: Yes - CARDIOVASCULAR Hx Cardio Disorders: Yes Hx Cardiac Cath: Yes (no stent) Hx Edema: Yes (at night) Hx Hypertension: Yes Comment:: high cholesterol - NEURO Hx Neuro Disorders: Yes Hx Neuropathy: Yes (tingling in toes rt foot) Hx Seizures: Yes (Oct 2016 elevated ammonia levels & UTI) - GI Hx GI Disorders: Yes Hx Liver Disease: Yes (fatty liver) Hx Ulcer: Yes (on meds for-protonix) Hx Cirrhosis: Yes (ODEN) Comment:: has a little bit of varices-Dr Carvajal 12/2016-improved - Hx Genitourinary Disorders: Yes Hx Kidney Stones: Yes (high ammonia levels) Comment:: over 2 years since last peroid - ENDOCRINE Hx Endocrine Disorders: Yes Hx Diabetes: Yes Hx Thyroid Disease: Yes Comment:: lately FBS 74-130 - MUSCULOSKELETAL Hx Musculoskeletal Disorders: Yes Hx Arthritis: Yes (back,ankles,hands) Comment:: spinal stenosis, herniated disk lower lumbar - PSYCH Hx Psych Problems: Yes Hx Anxiety: Yes (sometimes) - HEMATOLOGY/ONCOLOGY Hx Hematology/Oncology Disorders: Yes Hx Blood Disorders: Yes (low platelet) Hx Bruising: Yes (easy to bruise from BP cuffs) Hx Blood Transfusions: No Comment:: last platelets were 46,000. Family Medical History Any Significant Family History?: Yes Hx Alcohol Use: Father, Mother, Brother/Sister Hx Cancer: Mother, Brother/Sister Hx Depression: Father, Mother Hx Diabetes: Brother/Sister Hx Heart Disease: Father Hx HTN: Father, Mother, Children, Brother/Sister Hx Liver Disease: Brother/Sister Hx Stroke: Grandparents Physical Exam - General General Appearance: Alert, Oriented x3, Cooperative, No acute distress, Other (morbid obesity at 55.8 BMI) - Head Head exam: Normal inspection - Eye Eye exam: Normal appearance, PERRL, EOMI. negative: Conjunctival injection, Nystagmus Pupils: Normal accommodation - ENT ENT exam: Normal exam, Mucous membranes moist, Normal external ear exam, Normal orophraynx, TM's normal bilaterally Ear exam: Normal external inspection. negative: External canal tenderness Nasal Exam: Normal inspection. negative: Discharge, Sinus tenderness Mouth exam: Normal external inspection, Tongue normal Teeth exam: Normal inspection. negative: Dental caries Throat exam: Normal inspection. negative: Tonsillar erythema, Tonsillar exudate - Neck Neck exam: Normal inspection, Full ROM. negative: Lymphadenopathy, Meningismus, Tenderness - Respiratory Respiratory exam: Normal lung sounds bilaterally. negative: Respiratory distress - Cardiovascular Cardiovascular Exam: Regular rate, Normal rhythm, Normal heart sounds - GI/Abdominal GI/Abdominal exam: Soft, Normal bowel sounds. negative: Tenderness - Rectal Rectal exam: Deferred - exam: Deferred - Extremities Extremities exam: Normal inspection, Full ROM, Normal capillary refill, Other (Chronic vascular stasis changes with chronic venous insufficiency. Chronic erythematous redish brown changes to skin with several polyps. The largest polyp has a scab on the upper edge which does NOT have the anatomy of a tick and has controlled bleeding at this time. ). negative: Calf tenderness, Tenderness - Back Back exam: Reports: Normal inspection, Full ROM. Denies: Muscle spasm, Rash noted, Tenderness - Neurological Neurological exam: Alert, CN II-XII intact, Normal gait, Oriented X3, Reflexes normal, Other (lower extremity chronic diabetic neuropathy) - Psychiatric Psychiatric exam: Normal affect, Normal mood - Skin Skin exam: Dry, Intact, Normal color, Warm Course Vital Signs 03/17/19 17:13 Temperature 98.4 F Pulse Rate 73 Respiratory 20 Rate Blood Pressure 136/45 Pulse Ox 97 Medical Decision Making - Management Options MDM Management: No Additional Work-up Planned Disposition Disposition: Discharge Clinical Impression: Lesion of lower extremity Noninfected skin tear of left leg Qualifiers: Encounter type: initial encounter Qualified Code(s): S81.812A - Laceration without foreign body, left lower leg, initial encounter Disposition: Home, Self-Care Condition: (2) Stable Instructions: Skin Tear (ED) Additional Instructions: Continue present medications. Caution to protect lesion from injury. Limit the amount of standing you do. Follow up with your PCP on Tuesday03-20-19 as previously arranged for wound check and to follow up your blood pressure which was elevated mildly this visit. Quality - Quality Measures Quality Measures: N/A - Blood Pressure Screening Does Patient Have Any of the Following: No Blood Pressure Classification: Pre-Hypertensive BP Reading Systolic Measurement: 136 Diastolic Measurement: 45 Screening for High Blood Pressure: < Pre-Hypertensive BP, F/U Documented > [G8950] Pre-Hypertensive Follow-up Interventions: Follow-up with rescreen every year.
[2019-03-17] MEDS ORDERED: Diph,Pert(Acell),Tet Vac 0.5 ML SYR IM ONE (17:48)
== END 2019-03-17 18:19 | disposition home or self-care (01) ==
LOC: ER 17:10
DX: S81.812A Laceration without foreign body, left lower leg, initial encounter (principal); L98.9 Disorder of the skin and subcutaneous tissue, unspecified; X58.XXXA Exposure to other specified factors, initial encounter; I10 Essential (primary) hypertension; E11.9 Type 2 diabetes mellitus without complications; Z79.4 Long term (current) use of insulin; Z87.891 Personal history of nicotine dependence
CPT/HCPCS: 90715; 96372; 99282

== ENCOUNTER 2019-05-07 18:36 | Inpatient (IN) | payer MEDICARE, OTHER ==
--- NOTE | 2019-05-07 18:55 | Emergency Department Record ---
History of Present Illness - General Stated Complaint: SLURRING WORDS,AMONIA LEVELS UP?,SHAKES Time Seen by Provider: 05/07/19 18:49 Source: Patient, Family Mode of Arrival: Ambulatory Limitations: No limitations - History of Present Illness Initial Comments: 64 yo female presents with one day of feeling weak, slowed, shaky, sometimes repeating herself, slurring of speech at times. She awoke with the symptoms. No falls or injury. She was last at her baseline yesterday. She has ODEN with elevated ammonia levels. She is care for by Dr Reynolds and Dr Carvajal. She has not had her levels checked she thinks in about a month. No fevers. No vomiting. She is on Lactulose and states she is compliant. She has loose stools at baseline. MD Complaint: Confusion, Weakness, Other Severity: Mild Consistency: Constant Context: Liver disease Associated Symptoms: Diarrhea, Difficulty walking, Loss of appetite, Malaise, Weakness - Berkey Coma Scale Eye Response: (4) Open spontaneously Motor Response: (6) Obeys commands Verbal Response: (5) Oriented Lulú Total: 15 - Related Data Home Medications Medication Instructions Recorded Confirmed Last Taken Lactulose 30 gm PO QID 05/07/19 05/07/19 Unknown Previous Rx's Medication Instructions Recorded Lactulose 20 gm PO QID #3600 ml 02/13/19 Allergies Allergy/AdvReac Type Severity Reaction Status Date / Time No Known Drug Allergies Allergy Unverified 04/11/19 10:31 Review of Systems Constitutional: Reports: Malaise, Weakness. Denies: Fever Eyes: Denies: Eye discharge, Eye pain, Photophobia, Vision change ENT: Denies: Congestion, Epistaxis, Throat pain Respiratory: Denies: Cough, Dyspnea, Hemoptysis, Wheezes Cardiovascular: Denies: Chest pain, Palpitations, Syncope Endocrine: Reports: Fatigue. Denies: Polydipsia, Polyuria Gastrointestinal: Reports: Diarrhea. Denies: Abdominal pain, Nausea, Vomiting Genitourinary: Denies: Discharge, Dyspareunia, Dysuria Musculoskeletal: Denies: Arthralgia, Back pain, Joint swelling, Myalgia Skin: Denies: Bruising, Change in color, Rash Neurological: Reports: Confusion (by history), Weakness. Denies: Abnormal gait, Headache, Numbness, Paresthesias, Tremors, Vertigo Psychiatric: Denies: Anxiety Hematological/Lymphatic: Denies: Easy bleeding, Easy bruising Past Medical History - SOCIAL HISTORY Smoking Status: Former smoker Drug Use: None - RESPIRATORY Hx Respiratory Disorders: Yes - CARDIOVASCULAR Hx Cardio Disorders: Yes Hx Cardiac Cath: Yes (no stent) Hx Edema: Yes (at night) Hx Hypertension: Yes Comment:: high cholesterol - NEURO Hx Neuro Disorders: Yes Hx Neuropathy: Yes (tingling in toes rt foot) Hx Seizures: Yes (Oct 2016 elevated ammonia levels & UTI) - GI Hx GI Disorders: Yes Hx Liver Disease: Yes (fatty liver) Hx Ulcer: Yes (on meds for-protonix) Hx Cirrhosis: Yes (ODEN) Comment:: has a little bit of varices-Dr Carvajal 12/2016-improved - Hx Genitourinary Disorders: Yes Hx Kidney Stones: Yes (high ammonia levels) Comment:: over 2 years since last peroid - ENDOCRINE Hx Endocrine Disorders: Yes Hx Diabetes: Yes Hx Thyroid Disease: Yes Comment:: lately FBS 74-130 - MUSCULOSKELETAL Hx Musculoskeletal Disorders: Yes Hx Arthritis: Yes (back,ankles,hands) Comment:: spinal stenosis, herniated disk lower lumbar - PSYCH Hx Psych Problems: Yes Hx Anxiety: Yes (sometimes) - HEMATOLOGY/ONCOLOGY Hx Hematology/Oncology Disorders: Yes Hx Blood Disorders: Yes (low platelet) Hx Bruising: Yes (easy to bruise from BP cuffs) Hx Blood Transfusions: No Comment:: last platelets were 46,000. Family Medical History Hx Alcohol Use: Father, Mother, Brother/Sister Hx Cancer: Mother, Brother/Sister Hx Depression: Father, Mother Hx Diabetes: Brother/Sister Hx Heart Disease: Father Hx HTN: Father, Mother, Children, Brother/Sister Hx Liver Disease: Brother/Sister Hx Stroke: Grandparents Physical Exam - General General Appearance: Alert, Oriented x3, Cooperative, No acute distress, Other (alert, provides the history, no obvious confusion) - Head Head exam: Atraumatic, Normal inspection - Eye Eye exam: Normal appearance, PERRL. negative: Conjunctival injection, Scleral icterus - ENT ENT exam: Normal exam, Mucous membranes moist Ear exam: Normal external inspection Nasal Exam: Normal inspection Mouth exam: Normal external inspection - Neck Neck exam: Normal inspection - Respiratory Respiratory exam: Normal lung sounds bilaterally. negative: Respiratory distress - Cardiovascular Cardiovascular Exam: Regular rate, Normal rhythm, Normal heart sounds - GI/Abdominal GI/Abdominal exam: Soft, Normal bowel sounds, Other (obese). negative: Distended, Guarding - Rectal Rectal exam: Deferred - exam: Deferred - Extremities Extremities exam: Pedal edema - Back Back exam: Reports: Full ROM. Denies: CVA tenderness (R), CVA tenderness (L) - Neurological Neurological exam: Alert, CN II-XII intact, Normal gait, Oriented X3. negative: Altered, Motor sensory deficit - Psychiatric Psychiatric exam: Normal affect, Normal mood - Skin Skin exam: Dry, Intact, Normal color, Warm Course - Reevaluation(s) Reevaluation #1: 05/07/19 20:15 The labs were reviewed The patient has a Hgb of 9.3. This is a stable chronic anemia The BUN is elevated at 70 and CR 2.5 (priors 49 and 1.9) The UA is negative for infection No acute changes of the ALT or AST The INR is 1.2 05/07/19 Given the lab changes the patient will be admitted for iv hydration, recheck labs in AM and monitor neurostatus The case was discussed with Tiarra Hdez INSTRUMENT TECH for admission Medical Decision Making - Lab Data Result diagrams: 05/07/19 19:15 05/07/19 19:15 Disposition Disposition: Admit Clinical Impression: Dehydration, Weakness, Renal insufficiency, Serum ammonia increased Disposition: Still a Patient at [facility] Decision to Admit: Admit from ER Decision to Admit Date: 05/07/19 Decision to Admit Time: 20:18 Condition: (2) Stable Time of Disposition: 20:18 Quality - Quality Measures Quality Measures: N/A - Blood Pressure Screening Does Patient Have Any of the Following: Active Dx of HTN Blood Pressure Classification: Hypertensive Reading Systolic Measurement: 144 Diastolic Measurement: 44 Screening for High Blood Pressure: Patient Exclusion, Hx of HTN [[id number]]
[2019-05-07 19:25] LABS: ABSOLUTE NEUTROPHIL COUNT 3.31; BASO % 0.2 % (0-6); EOS % 3.6 % (0-6); HEMATOCRIT 30.3 % (35.0-47.0); HEMOGLOBIN 9.3 gm/dl (11.6-16.0); LYMPH % 14.8 % (16-45); MEAN CELL VOLUME 86.3 fl (81-97); MEAN CORPUSCULAR HGB CONC 30.7 g/dl (32-36); MEAN PLATELET VOLUME 11.6 fl (7.4-10.4); MONO % 11.4 % (0-9); PLATELET COUNT 80 K/uL (130-400); RED BLOOD COUNT 3.51 M/uL (3.80-5.40); RED CELL DISTRIBUTION WIDTH 17.7 % (11.5-14.5); WHITE BLOOD COUNT W/O DIFF 4.7 K/uL (4.2-12.2)
[2019-05-07 19:26] LABS: MEAN CORPUSCULAR HEMOGLOBIN 26.4 pg (27-33)
[2019-05-07 19:44] LABS: BILIRUBIN,TOTAL 0.7 mg/dL (0.2-1.0); CREATININE 2.5 mg/dL (0.5-0.9); TOTAL PROTEIN 5.7 g/dL (6.6-8.7)
[2019-05-07 19:49] LABS: ALBUMIN 2.8 g/dL (4.0-5.0)
[2019-05-07 19:59] LABS: THYROID STIMULATING HORMONE 3.05 uIU/mL (0.270-4.20)
[2019-05-07 20:00] LABS: URINE APPEARANCE CLEAR; URINE BILIRUBIN NEGATIVE (NEGATIVE); URINE BLOOD MODERATE (NEGATIVE); URINE COLOR YELLOW; URINE GLUCOSE (UA) NEGATIVE (NEGATIVE); URINE KETONE NEGATIVE (NEGATIVE); URINE LEUKOCYTE ESTERASE TRACE (NEGATIVE); URINE NITRITE NEGATIVE (NEGATIVE); URINE PROTEIN NEGATIVE (NEGATIVE); URINE UROBILINOGEN 0.2 E.U./dL (0.20 - 1.00)
[2019-05-07 20:05] LABS: INR 1.2; PARTIAL THROMBOPLASTIN TIME 20.3 SECONDS (24.5-39.1); PROTHROMBIN TIME (PATIENT) 12.5 SECONDS (9.5-12.1)
[2019-05-07 20:09] LABS: URINE BACTERIA NONE SEEN; URINE EPITHELIAL CELLS 0 - 2 (FEW); URINE WBC 0 - 2 (0-2/hpf)
[2019-05-07] MEDS ORDERED: 0.9 % SODIUM CHLORIDE 1000ML 1,000 ML IV ONE (20:17)
[2019-05-07] MEDS ORDERED: LACTULOSE 20 GM/30 ML UDC PO SCH (22:00)
[2019-05-07] MEDS: GABAPENTIN 300 MG CAPSULE PO SCH (22:25)
[2019-05-07] MEDS: RIFAXIMIN 550 MG TABLET PO SCH (22:25)
[2019-05-07] MEDS: LACTULOSE 20 GM/30 ML UDC PO SCH (22:25)
[2019-05-07] MEDS: OXYCODONE HCL 5 MG TABLET PO PRN (22:25)
[2019-05-07] MEDS: ATORVASTATIN 20 MG TABLET PO SCH (22:26)
[2019-05-08] MEDS: 0.9 % SODIUM CHLORIDE 1000ML 1,000 ML IV PRN ×2 (01:15→10:16)
[2019-05-08] MEDS: PANTOPRAZOLE SODIUM 40 MG TABLET PO SCH (06:06)
[2019-05-08 07:33] LABS: ALB/GLOB RATIO 0.9 (1.1-1.8); ALBUMIN 2.8 g/dL (4.0-5.0); BILIRUBIN,TOTAL 0.6 mg/dL (0.2-1.0); CREATININE 2.3 mg/dL (0.5-0.9); TOTAL PROTEIN 5.8 g/dL (6.6-8.7)
[2019-05-08] MEDS ORDERED: SPIRONOLACTONE 25 MG TAB PO SCH (10:00)
[2019-05-08] MEDS: METOPROLOL SUCC 25 MG TAB.ER PO SCH (10:16)
[2019-05-08] MEDS: ASCORBIC ACID 500 MG TAB PO SCH (10:16)
[2019-05-08] MEDS: RIFAXIMIN 550 MG TABLET PO SCH ×2 (10:16→21:26)
[2019-05-08] MEDS: LACTULOSE 20 GM/30 ML UDC PO SCH ×4 (10:16→21:27)
[2019-05-08] MEDS: GABAPENTIN 300 MG CAPSULE PO SCH ×3 (10:16→21:26)
[2019-05-08] MEDS: LEVOTHYROXINE SODIUM 75 MCG TABLET PO SCH (10:16)
[2019-05-08] MEDS: OXYCODONE HCL 5 MG TABLET PO PRN (10:18)
--- NOTE | 2019-05-08 11:17 | History & Physical ---
History of Present Illness - Date of Service Date of Service for History & Physical: 05/08/19 - History of Present Illness Admitting Diagnosis: weakness, dehydration, elevated ammonia, renal insufficiency History of Present Illness: Mrs. Lemus is a 64 yo female who presented to the ED on 05/07 with one day of feeling weak, slowed, shaky, sometimes repeating herself, slurring of speech at times. She awoke with the symptoms. No falls or injury. She was last at her baseline the day prior. She has ODEN with elevated ammonia levels. She is cared for by Dr Reynolds and Dr Carvajal. She has not had her lab levels checked in about a month. No fevers. No vomiting. She is on Lactulose and states she is compliant. She has loose stools at baseline. Other hx includes: ex-smoker, cardiac cath, edema, HTN, hyperlipidemia, neuropathy, fatty liver disease, ulcer, cirrhosis, kidney stones, DM, hypothyroid, spinal stenosis, and anxiety. In the ED, labs revealed amonia of 104, Hgb of 9.3 (stable chronic anemia), BUN was elevated at 70 and CR 2.5 (priors 49 and 1.9). The UA was negative for infection. No acute changes of the ALT or AST. The INR was 1.2. She was admitted for IV hydration and lab monitoring. 05/07/19: Pt. is resting in bed. She states that she just began having loose stools again this morning (baseline). She denies pain and states that she feels like her tremor has improved. Amonia improved to 50 this am, BUN 64, creat 2.3. Will continue IV hydration- NS at 125/hr. Will recheck UA (urine in ED pos for leuks and blood). PCP: Dr. Reynolds GI: Dr. Carvajal Travel Screening - Travel/Exposure Within Last 30 Days Have you traveled within the last 30 days?: No - Travel/Exposure Within Last Year Have you traveled outside the [place] in the last year?: No - Additonal Travel Details Have you been exposed to anyone with a communicable illness?: No - Travel Symptoms Symptom Screening: Weakness Review of Systems Constitutional: Reports: Malaise, Weakness. Denies: Fever Eyes: Denies: Eye discharge, Eye pain, Photophobia, Vision change ENT: Denies: Congestion, Epistaxis, Throat pain Respiratory: Denies: Cough, Dyspnea, Hemoptysis, Wheezes Cardiovascular: Denies: Chest pain, Palpitations, Syncope Endocrine: Reports: Fatigue. Denies: Polydipsia, Polyuria Gastrointestinal: Reports: Diarrhea. Denies: Abdominal pain, Nausea, Vomiting Genitourinary: Denies: Discharge, Dyspareunia, Dysuria Musculoskeletal: Denies: Arthralgia, Back pain, Joint swelling, Myalgia Skin: Denies: Bruising, Change in color, Rash Neurological: Reports: Confusion (by history), Weakness. Denies: Abnormal gait, Headache, Numbness, Paresthesias, Tremors, Vertigo Psychiatric: Denies: Anxiety Hematological/Lymphatic: Denies: Easy bleeding, Easy bruising Past Medical History - SOCIAL HISTORY Smoking Status: Former smoker Drug Use: None - RESPIRATORY Hx Respiratory Disorders: Yes - CARDIOVASCULAR Hx Cardio Disorders: Yes Hx Cardiac Cath: Yes (no stent) Hx Edema: Yes (at night) Hx Hypertension: Yes Comment:: high cholesterol - NEURO Hx Neuro Disorders: Yes Hx Neuropathy: Yes (tingling in toes rt foot) Hx Seizures: Yes (Oct 2016 elevated ammonia levels & UTI) - GI Hx GI Disorders: Yes Hx Liver Disease: Yes (fatty liver) Hx Ulcer: Yes (on meds for-protonix) Hx Cirrhosis: Yes (ODEN) Comment:: has a little bit of varices-Dr Carvajal 12/2016-improved - Hx Genitourinary Disorders: Yes Hx Kidney Stones: Yes (high ammonia levels) Comment:: over 2 years since last peroid - ENDOCRINE Hx Endocrine Disorders: Yes Hx Diabetes: Yes Hx Thyroid Disease: Yes Comment:: lately FBS 74-130 - MUSCULOSKELETAL Hx Musculoskeletal Disorders: Yes Hx Arthritis: Yes (back,ankles,hands) Comment:: spinal stenosis, herniated disk lower lumbar - PSYCH Hx Psych Problems: Yes Hx Anxiety: Yes (sometimes) - HEMATOLOGY/ONCOLOGY Hx Hematology/Oncology Disorders: Yes Hx Blood Disorders: Yes (low platelet) Hx Bruising: Yes (easy to bruise from BP cuffs) Hx Blood Transfusions: No Comment:: last platelets were 46,000. Family Medical History Hx Alcohol Use: Father, Mother, Brother/Sister Hx Cancer: Mother, Brother/Sister Hx Depression: Father, Mother Hx Diabetes: Brother/Sister Hx Heart Disease: Father Hx HTN: Father, Mother, Children, Brother/Sister Hx Liver Disease: Brother/Sister Hx Stroke: Grandparents H&P Meds/Allergies - Allergies Allergies: Allergies Allergy/AdvReac Type Severity Reaction Status Date / Time No Known Drug Allergies Allergy Unverified 04/11/19 10:31 - Home Medications Previous Rx's Medication Instructions Recorded Lactulose 20 gm PO QID #3600 ml 02/13/19 - Active Medications Active Medications: Current Medications Ascorbic Acid (Vitamin C) 500 mg PO DAILY [facility] Last Admin: 05/08/19 10:16 Dose: 500 mg Documented by: Atorvastatin Calcium (Lipitor) 40 mg PO QHS [facility] Last Admin: 05/07/19 22:26 Dose: 40 mg Documented by: Gabapentin (Neurontin) 300 mg PO TID [facility] Last Admin: 05/08/19 10:16 Dose: 300 mg Documented by: Sodium Chloride () 1,000 mls @ 125 mls/hr IV .Q8H PRN PRN Reason: LARGE VOLUME IV Last Admin: 05/08/19 10:16 Dose: 125 mls/hr Documented by: Insulin Detemir (Levemir Flextouch) 32 unit SQ DAILY@1999 ANTHONY Lactulose (Lactulose) 20 gm PO QID [facility] Last Admin: 05/08/19 10:16 Dose: 20 gm Documented by: Levothyroxine Sodium (Synthroid) 75 mcg PO QAM [facility] Last Admin: 05/08/19 10:16 Dose: 75 mcg Documented by: Metoprolol Succinate (Toprol Xl) 25 mg PO DAILY [facility] Last Admin: 05/08/19 10:16 Dose: Not Given Documented by: Oxycodone HCl (Oxy Ir) 5 mg PO TID PRN PRN Reason: PAIN - MILD (1-4) Last Admin: 05/08/19 10:18 Dose: 5 mg Documented by: Pantoprazole Sodium (Protonix) 40 mg PO DAILYAC [facility] Last Admin: 05/08/19 06:06 Dose: 40 mg Documented by: Physical Exam - Vital Signs Vital Signs: Vital Signs - Last 24 Hrs Temp Pulse Resp BP Pulse Ox 05/08/19 09:00 18 05/08/19 07:32 97.9 F 70 17 109/43 100 05/08/19 05:32 97.8 F 71 16 127/33 100 05/08/19 00:34 65 16 05/07/19 21:30 98.7 F 65 16 144/44 100 05/07/19 20:14 65 18 115/46 95 05/07/19 19:00 97.9 F 71 20 155/60 100 - General General Appearance: Alert, Oriented x3, Cooperative, No acute distress, Other (alert, provides the history, no obvious confusion) Limitations: No limitations - Head Head exam: Atraumatic, Normal inspection - Eye Eye exam: Normal appearance, PERRL. negative: Conjunctival injection, Scleral icterus - ENT ENT exam: Normal exam, Mucous membranes moist Ear exam: Normal external inspection Nasal Exam: Normal inspection Mouth exam: Normal external inspection - Neck Neck exam: Normal inspection - Respiratory Respiratory exam: Normal lung sounds bilaterally. negative: Respiratory distress - Cardiovascular Cardiovascular Exam: Regular rate, Normal rhythm, Normal heart sounds - GI/Abdominal GI/Abdominal exam: Soft, Normal bowel sounds, Other (obese). negative: Distended, Guarding - Rectal Rectal exam: Deferred - exam: Deferred - Extremities Extremities exam: Pedal edema - Back Back exam: Reports: Full ROM. Denies: CVA tenderness (R), CVA tenderness (L) - Neurological Neurological exam: Alert, CN II-XII intact, Normal gait, Oriented X3. negative: Altered, Motor sensory deficit - Psychiatric Psychiatric exam: Normal affect, Normal mood - Skin Skin exam: Dry, Intact, Normal color, Warm Results - Labs Result Diagrams: 05/07/19 19:15 05/08/19 06:28 Labs Last 24 Hours: Laboratory Results - last 24 hr 05/07/19 05/07/19 05/07/19 19:15 19:15 19:42 WBC 4.7 RBC 3.51 L Hgb 9.3 L Hct 30.3 L MCV 86.3 MCH 26.4 L MCHC 30.7 L RDW 17.7 H Plt Count 80 L MPV 11.6 H Gran % 70.0 Lymphocytes % 14.8 L Monocytes % 11.4 H Eosinophils % 3.6 Basophils % 0.2 Absolute Neutrophils 3.31 PT 12.5 H INR 1.2 APTT 20.3 L Sodium 141 Potassium 4.5 Chloride 107 Carbon Dioxide 18.0 L Anion Gap 16.0 BUN 70 H Creatinine 2.5 H Estimated GFR 21 POC Glucose Random Glucose 132 H Calcium 8.9 Total Bilirubin 0.70 AST 27 ALT 28 Alkaline Phosphatase 132 H Ammonia 104 H Total Protein 5.7 L Albumin 2.8 L Globulin 2.9 Albumin/Globulin Ratio 1.0 L TSH 3.05 Urine Color Urine Appearance Urine pH Ur Specific [place] Urine Protein Urine Glucose (UA) Urine Ketones Urine Blood Urine Nitrite Urine Bilirubin Urine Urobilinogen Ur Leukocyte Esterase Urine RBC Urine WBC Ur Epithelial Cells Urine Bacteria 05/07/19 05/07/19 05/08/19 19:58 21:45 06:28 WBC RBC Hgb Hct MCV MCH MCHC RDW Plt Count MPV Gran % Lymphocytes % Monocytes % Eosinophils % Basophils % Absolute Neutrophils PT INR APTT Sodium 142 Potassium 4.6 H Chloride 110 H Carbon Dioxide 18.0 L Anion Gap 14.0 BUN 64 H Creatinine 2.3 H Estimated GFR 23 POC Glucose 103 Random Glucose 121 H Calcium 8.6 L Total Bilirubin 0.60 AST 29 ALT 28 Alkaline Phosphatase 130 H Ammonia Cancelled Total Protein 5.8 L Albumin 2.8 L Globulin 3.0 Albumin/Globulin Ratio 0.9 L TSH Urine Color Yellow Urine Appearance Clear Urine pH 6.0 Ur Specific [place] 1.010 Urine Protein Negative Urine Glucose (UA) Negative Urine Ketones Negative Urine Blood Moderate Urine Nitrite Negative Urine Bilirubin Negative Urine Urobilinogen 0.2 Ur Leukocyte Esterase Trace H Urine RBC 10 - 15 Urine WBC 0 - 2 Ur Epithelial Cells 0 - 2 Urine Bacteria None seen 05/08/19 06:55 WBC RBC Hgb Hct MCV MCH MCHC RDW Plt Count MPV Gran % Lymphocytes % Monocytes % Eosinophils % Basophils % Absolute Neutrophils PT INR APTT Sodium Potassium Chloride Carbon Dioxide Anion Gap BUN Creatinine Estimated GFR POC Glucose Random Glucose Calcium Total Bilirubin AST ALT Alkaline Phosphatase Ammonia 50 Total Protein Albumin Globulin Albumin/Globulin Ratio TSH Urine Color Urine Appearance Urine pH Ur Specific [place] Urine Protein Urine Glucose (UA) Urine Ketones Urine Blood Urine Nitrite Urine Bilirubin Urine Urobilinogen Ur Leukocyte Esterase Urine RBC Urine WBC Ur Epithelial Cells Urine Bacteria VTE H&P Assessment - Risk for VTE Risk for VTE: Yes Risk Level: Low Risk Assessment Date: 05/08/19 Risk Assessment Time: 11:18 VTE Orders Placed or Will Be Placed: Yes Plan - Inpatient Certification Inpatient Certification: Admit to inpatient care: Based on my medical assessment, after consideration of patient's risk factors (age, co-morbidities and patient presenting symptoms and acuity), I expect that this patient will remain in the hospital greater than or equal to two midnights and that the services needed warrant inpatient care because: Patient Risk Factors: [Age, co-morbidities] Estimated length of stay: [48-96 hours] The patient may reasonably be expected to be discharged or transferred to a hospital within 96 hours after admission to [facility]. Services needed: [IV fluids, lab monitoring] Post hospital care (if known): [] I certify that my determination is in accordance with my understanding of Medicare requirements for reasonable and necessary inpatient services. 05/08/19 11:18 - Detailed Diagnosis and Plan (1) Serum ammonia increased Current Visit: Yes Status: Acute Base Code: E72.20 - DISORDER OF UREA CYCLE METABOLISM, UNSPECIFIED Comment: 05/08/19: -Secondary to ODEN -Amonia improved to 50 this am, continuing lactulose 20gm QID -NSR on tele -Continue IVF (2) T2DM (type 2 diabetes mellitus) Current Visit: No Status: Acute Qualifiers: Base Code: E11.9 - TYPE 2 DIABETES MELLITUS WITHOUT COMPLICATIONS Comment: 05/08/19: - Levemir 32 units SQ daily - ADA diet. Dietary consulted and counseled. (3) DVT prophylaxis Current Visit: No Status: Acute Base Code: [id number] - Comment: 05/08/19: - No pharmacological therapy - Lovenox contraindicated [facility] chronic ITP - SCD's while in bed - encouraged ambulation (4) DNR (do not resuscitate) Current Visit: No Status: Acute Base Code: Z66 - DO NOT RESUSCITATE Comment: 05/08/19: -Pt. is a DNR
[2019-05-08] MEDS ORDERED: ZINC OXIDE 28.35 GM TUBE TOP ONE (11:34)
[2019-05-08 12:10] LABS: URINE APPEARANCE CLEAR; URINE BILIRUBIN NEGATIVE (NEGATIVE); URINE BLOOD NEGATIVE (NEGATIVE); URINE COLOR YELLOW; URINE GLUCOSE (UA) NEGATIVE (NEGATIVE); URINE KETONE NEGATIVE (NEGATIVE); URINE LEUKOCYTE ESTERASE NEGATIVE (NEGATIVE); URINE NITRITE NEGATIVE (NEGATIVE); URINE PROTEIN NEGATIVE (NEGATIVE); URINE UROBILINOGEN 0.2 E.U./dL (0.20 - 1.00)
[2019-05-08] MEDS ORDERED: LEVEMIR FLEXTOUCH 100 UNIT/ML INSULIN PEN SQ SCH (20:00)
[2019-05-08] MEDS: ATORVASTATIN 20 MG TABLET PO SCH (21:26)
[2019-05-09] MEDS: 0.9 % SODIUM CHLORIDE 1000ML 1,000 ML IV PRN (04:32)
[2019-05-09] MEDS: PANTOPRAZOLE SODIUM 40 MG TABLET PO SCH (06:22)
[2019-05-09] MEDS: LACTULOSE 20 GM/30 ML UDC PO SCH ×3 (06:22→13:52)
[2019-05-09 06:24] LABS: ABSOLUTE NEUTROPHIL COUNT 2.83; BASO % 0.2 % (0-6); EOS % 2.7 % (0-6); GRAN % 69.6 % (47-80); HEMATOCRIT 30.6 % (35.0-47.0); HEMOGLOBIN 9.2 gm/dl (11.6-16.0); LYMPH % 15.7 % (16-45); MEAN CELL VOLUME 87.9 fl (81-97); MEAN CORPUSCULAR HEMOGLOBIN 26.4 pg (27-33); MEAN CORPUSCULAR HGB CONC 30.1 g/dl (32-36); MEAN PLATELET VOLUME 11.2 fl (7.4-10.4); MONO % 11.8 % (0-9); PLATELET COUNT 79 K/uL (130-400); RED BLOOD COUNT 3.48 M/uL (3.80-5.40); RED CELL DISTRIBUTION WIDTH 17.8 % (11.5-14.5); WHITE BLOOD COUNT W/O DIFF 4.1 K/uL (4.2-12.2)
[2019-05-09] MEDS: OXYCODONE HCL 5 MG TABLET PO PRN (06:24)
[2019-05-09 06:44] LABS: ALBUMIN 2.8 g/dL (4.0-5.0); BILIRUBIN,TOTAL 0.6 mg/dL (0.2-1.0); CREATININE 1.9 mg/dL (0.5-0.9); TOTAL PROTEIN 5.7 g/dL (6.6-8.7)
[2019-05-09] MEDS ORDERED: ZINC OXIDE 28.35 GM TUBE TOP ONE (09:22)
[2019-05-09] MEDS: GABAPENTIN 300 MG CAPSULE PO SCH (09:38)
[2019-05-09] MEDS: METOPROLOL SUCC 25 MG TAB.ER PO SCH (09:38)
[2019-05-09] MEDS: ASCORBIC ACID 500 MG TAB PO SCH (09:38)
[2019-05-09] MEDS: RIFAXIMIN 550 MG TABLET PO SCH (09:38)
[2019-05-09] MEDS: LEVOTHYROXINE SODIUM 75 MCG TABLET PO SCH (09:38)
--- NOTE | 2019-05-09 12:09 | Discharge Summary ---
Providers Discharge Summary Date: 05/09/19 Date of admission: 05/07/19 21:23 Expected Date of Discharge: 05/09/19 Attending physician: HARPREET REYNOLDS Primary care physician: HARPREET REYNOLDS Physical Exam - Vital Signs Vital Signs: Vital Signs - Last 24 Hrs Temp Pulse Resp BP Pulse Ox 05/09/19 09:00 16 05/09/19 07:57 98 F 81 16 120/63 100 05/09/19 04:38 97.9 F 76 16 129/51 97 05/08/19 21:00 18 05/08/19 20:45 99.0 F 79 18 115/42 99 05/08/19 15:25 97.6 F 78 18 132/45 100 - General General Appearance: Alert, Oriented x3, Cooperative, No acute distress, Other (alert, provides the history, no obvious confusion) Limitations: No limitations - Head Head exam: Atraumatic, Normal inspection - Eye Eye exam: Normal appearance, PERRL. negative: Conjunctival injection, Scleral icterus - ENT ENT exam: Normal exam, Mucous membranes moist Ear exam: Normal external inspection Nasal Exam: Normal inspection Mouth exam: Normal external inspection - Neck Neck exam: Normal inspection - Respiratory Respiratory exam: Normal lung sounds bilaterally. negative: Respiratory distress - Cardiovascular Cardiovascular Exam: Regular rate, Normal rhythm, Normal heart sounds - GI/Abdominal GI/Abdominal exam: Soft, Normal bowel sounds, Other (obese). negative: Distended, Guarding - Rectal Rectal exam: Deferred - exam: Deferred - Extremities Extremities exam: Pedal edema - Back Back exam: Reports: Full ROM. Denies: CVA tenderness (R), CVA tenderness (L) - Neurological Neurological exam: Alert, CN II-XII intact, Normal gait, Oriented X3. negative: Altered, Motor sensory deficit - Psychiatric Psychiatric exam: Normal affect, Normal mood - Skin Skin exam: Dry, Intact, Normal color, Warm Hospitalization - Hospitalization Admission Diagnosis: weakness, dehydration, elevated ammonia, renal insufficiency - Problem List/Discharge Diagnosis (1) Serum ammonia increased Current Visit: Yes Status: Acute Base Code: E72.20 - DISORDER OF UREA CYCLE METABOLISM, UNSPECIFIED Comment: 05/09/19: -Secondary to ODEN -Ammonia this am was 124, continuing lactulose 20gm QID, pt continues to have soft stools (3 this am) -NSR on tele (2) T2DM (type 2 diabetes mellitus) Current Visit: No Status: Acute Discharge Diagnosis: Base Code: E11.9 - TYPE 2 DIABETES MELLITUS WITHOUT COMPLICATIONS Comment: 05/09/19: - Levemir 32 units SQ daily - ADA diet. Dietary consulted and counseled. (3) DVT prophylaxis Current Visit: No Status: Acute Base Code: [id number] - Comment: 05/09/19: - No pharmacological therapy - Lovenox contraindicated wtih chronic ITP - SCD's while in bed - encouraged ambulation (4) DNR (do not resuscitate) Current Visit: No Status: Acute Base Code: Z66 - DO NOT RESUSCITATE Comment: 05/09/19: -Pt. is a DNR - Hospitalization Course Disposition: Home, Self-Care Hospital Course: Mrs. Lemus is a 64 yo female who presented to the ED on 05/07 with one day of feeling weak, slowed, shaky, sometimes repeating herself, slurring of speech at times. She awoke with the symptoms. No falls or injury. She was last at her baseline the day prior. She has ODEN with elevated ammonia levels. She is cared for by Dr Reynolds and Dr Carvajal. She has not had her lab levels checked in about a month. No fevers. No vomiting. She is on Lactulose and states she is compliant. She has loose stools at baseline. Other hx includes: ex-smoker, cardiac cath, edema, HTN, hyperlipidemia, neuropathy, fatty liver disease, ulcer, cirrhosis, kidney stones, DM, hypothyroid, spinal stenosis, and anxiety. In the ED, labs revealed amonia of 104, Hgb of 9.3 (stable chronic anemia), BUN was elevated at 70 and CR 2.5 (priors 49 and 1.9). The UA was negative for infection. No acute changes of the ALT or AST. The INR was 1.2. She was admitted for IV hydration and lab monitoring. 05/08/19: Pt. is resting in bed. She states that she just began having loose stools again this morning (baseline). She denies pain and states that she feels like her tremor has improved. Ammonia improved to 50 this am, BUN 64, creat 2.3. Will continue IV hydration- NS at 125/hr. Will recheck UA (urine in ED pos for leuks and blood). 05/09/19: Pt. continues to have soft bowel movements, ammonia was 124 this morning. (per pt's history, she often fluctuates up to 300 and responds well to lactulose). Will d/c home today, continue lactulose, pt has f/u scheduled with Dr. Reynolds on 05/15. PCP: Dr. Reynolds GI: Dr. Carvajal Procedures: Cardiology Procedures 05/07/19 18:49 Mail Rider NOW Abnormal Labs: Abnormal Lab Results 05/07/19 05/07/19 05/07/19 Range/Units 19:15 19:15 19:42 WBC (4.2-12.2) K/uL RBC 3.51 L (3.80-5.40) M/uL Hgb 9.3 L (11.6-16.0) gm/dl Hct 30.3 L (35.0-47.0) % MCH 26.4 L (27-33) pg MCHC 30.7 L (32-36) g/dl RDW 17.7 H (11.5-14.5) % Plt Count 80 L (130-400) K/uL MPV 11.6 H (7.4-10.4) fl Lymphocytes % 14.8 L (16-45) % Monocytes % 11.4 H (0-9) % PT 12.5 H (9.5-12.1) SECONDS APTT 20.3 L (24.5-39.1) SECONDS Potassium (3.4-4.5) mmol/L Chloride (98-107) mmol/L Carbon Dioxide 18.0 L (22-29) mmol/L BUN 70 H (8-23) mg/dL Creatinine 2.5 H (0.5-0.9) mg/dL POC Glucose (70-110) mg/dL Random Glucose 132 H (74-109) mg/dL Calcium (8.8-10.2) mg/dL Alkaline Phosphatase 132 H (35-104) U/L Ammonia 104 H (11.0-51.0) umol/L Total Protein 5.7 L (6.6-8.7) g/dL Albumin 2.8 L (4.0-5.0) g/dL Albumin/Globulin Ratio 1.0 L (1.1-1.8) Ur Leukocyte Esterase (NEGATIVE) 05/07/19 05/08/19 05/08/19 Range/Units 19:58 06:28 11:52 WBC (4.2-12.2) K/uL RBC (3.80-5.40) M/uL Hgb (11.6-16.0) gm/dl Hct (35.0-47.0) % MCH (27-33) pg MCHC (32-36) g/dl RDW (11.5-14.5) % Plt Count (130-400) K/uL MPV (7.4-10.4) fl Lymphocytes % (16-45) % Monocytes % (0-9) % PT (9.5-12.1) SECONDS APTT (24.5-39.1) SECONDS Potassium 4.6 H (3.4-4.5) mmol/L Chloride 110 H (98-107) mmol/L Carbon Dioxide 18.0 L (22-29) mmol/L BUN 64 H (8-23) mg/dL Creatinine 2.3 H (0.5-0.9) mg/dL POC Glucose 137 H (70-110) mg/dL Random Glucose 121 H (74-109) mg/dL Calcium 8.6 L (8.8-10.2) mg/dL Alkaline Phosphatase 130 H (35-104) U/L Ammonia (11.0-51.0) umol/L Total Protein 5.8 L (6.6-8.7) g/dL Albumin 2.8 L (4.0-5.0) g/dL Albumin/Globulin Ratio 0.9 L (1.1-1.8) Ur Leukocyte Esterase Trace H (NEGATIVE) 05/08/19 05/09/19 05/09/19 Range/Units 21:00 06:12 06:12 WBC 4.1 L (4.2-12.2) K/uL RBC 3.48 L (3.80-5.40) M/uL Hgb 9.2 L (11.6-16.0) gm/dl Hct 30.6 L (35.0-47.0) % MCH 26.4 L (27-33) pg MCHC 30.1 L (32-36) g/dl RDW 17.8 H (11.5-14.5) % Plt Count 79 L (130-400) K/uL MPV 11.2 H (7.4-10.4) fl Lymphocytes % 15.7 L (16-45) % Monocytes % 11.8 H (0-9) % PT (9.5-12.1) SECONDS APTT (24.5-39.1) SECONDS Potassium (3.4-4.5) mmol/L Chloride 111 H (98-107) mmol/L Carbon Dioxide 17.0 L (22-29) mmol/L BUN 57 H (8-23) mg/dL Creatinine 1.9 H (0.5-0.9) mg/dL POC Glucose 161 H (70-110) mg/dL Random Glucose 126 H (74-109) mg/dL Calcium 8.3 L (8.8-10.2) mg/dL Alkaline Phosphatase 151 H (35-104) U/L Ammonia 124 H (11.0-51.0) umol/L Total Protein 5.7 L (6.6-8.7) g/dL Albumin 2.8 L (4.0-5.0) g/dL Albumin/Globulin Ratio 1.0 L (1.1-1.8) Ur Leukocyte Esterase (NEGATIVE) Condition at Discharge: (2) Stable VTE Discharge VTE Reason For No Overlap Therapy: Not Indicated Discharge Medications - Discharge Medications Home Medications: Ambulatory Orders Ergocalciferol (Vitamin D2) [Vitamin D2] 2,000 unit PO DAILY tab 11/04/15 [Last Taken 1 Day Ago ~03/16/19] Ascorbic Acid [Vitamin C] 500 mg PO DAILY tab 12/21/18 [Last Taken 1 Day Ago ~03/16/19] Lactulose 20 gm PO QID #3600 ml 02/13/19 [Last Taken 1 Day Ago ~03/16/19] Insulin Glargine,Hum.rec.anlog [Lantus] 32 unit SQ DAILY@199903/17/19 [Last Taken 1 Day Ago ~03/16/19] Discharge Plan - Discharge Instructions Activity at Discharge: Increase Activity as Tolerated Diet at Discharge: Advance to Usual Diet Additional Instructions: Appointment with Dr. Reynolds on Tuesday 05/15 at 1:20. Quality Measures - Quality Measures Quality Measures: Advance Directives, Documentation of Current Medications in Medical Record, Elder Maltreatment Screen and Follow-Up Plan, Screening for High Blood Pressure and F/U Documented - Current Medications Quality Measure: Measure #130: Documentation of Current Medications Documentation of Current Medications: <Current Medications Documented/Reviewed> [G9200] - Blood Pressure Screening Quality Measure: Screening for High Blood Pressure and Follow-Up Documented Does Patient Have Any of the Following: Active Dx of HTN Blood Pressure Classification: Normal BP Reading Systolic Measurement: 109 Diastolic Measurement: 43 Screening for High Blood Pressure: Patient Exclusion, Hx of HTN [G9744] - Advance Directives Quality Measure: Measure #47: Care Plan Advance Directives Established: No Advance Directives Information Provided To Patient: Yes Advance Directives on File: No Living Will: No Power of Press Breaker: No Advance Care Planning: <Care Plan/Decision Maker Documented; Discussed & Documented> [1123F] - Elder Abuse Suspicion Index Screening: Elder Abuse Suspicion Index Screening Rely on people for bathing, dressing, shopping, banking, etc: No Prevented from getting food, clothes, medication, etc: No Made to feel shamed or threatened by someone: No Forced to sign papers or use money against will: No Feel afraid, touched in ways not wanted or hurt physically: No Poor eye contact, withdrawn, malnourished, cuts or bruises: No Screening Result: Negative result EASI Reference Information: Jennifer JOHNSON, Irvin C, Hillary D, Simon Zaman.Development and validation of a tool to assist physicians identification of elder abuse: The Elder Abuse Suspicion Index (EASI ). Journal of Elder Abuse and Neglect, 2008; 20 (3): 276-300. - Elder Maltreatment Screen Quality Measures: Elder Maltreatment Screen and Follow-Up Plan Elder Maltreatment Screen: <Negative, No Follow-Up Plan Required> [G8734]
== END 2019-05-09 15:45 | disposition home or self-care (01) | DRG 948 ==
LOC: ER 18:36 → MEDSURG 21:23 → ER 21:23
PROVIDERS: ADMIT Internal Medicine; ATTEND Internal Medicine
DX: R53.1 Weakness (principal); E72.20 Disorder of urea cycle metabolism, unspecified; E86.0 Dehydration; N28.9 Disorder of kidney and ureter, unspecified; I10 Essential (primary) hypertension; E11.9 Type 2 diabetes mellitus without complications; Z79.4 Long term (current) use of insulin; E78.00 Pure hypercholesterolemia, unspecified; E03.9 Hypothyroidism, unspecified; K75.81 Nonalcoholic steatohepatitis (NASH); K76.0 Fatty (change of) liver, not elsewhere classified; G62.9 Polyneuropathy, unspecified; D69.6 Thrombocytopenia, unspecified; Z98.61 Coronary angioplasty status; Z87.891 Personal history of nicotine dependence; Z66 Do not resuscitate
CPT/HCPCS: 36416; 80053; 81001; 81003; 82140; 82948; 84443; 85025; 85610; 85730; 99223; 99239; 99285; J7030

== ENCOUNTER 2019-05-11 17:45 | Inpatient (IN) | payer MEDICARE, OTHER ==
[2019-05-11 19:01] LABS: HEMOGLOBIN 9.1 gm/dl (11.6-16.0); MEAN CELL VOLUME 86.7 fl (81-97); MEAN CORPUSCULAR HEMOGLOBIN 26.3 pg (27-33); MEAN CORPUSCULAR HGB CONC 30.3 g/dl (32-36); RED BLOOD COUNT 3.46 M/uL (3.80-5.40); RED CELL DISTRIBUTION WIDTH 17.4 % (11.5-14.5); WHITE BLOOD COUNT W/O DIFF 10.1 K/uL (4.2-12.2)
[2019-05-11 19:07] LABS: INR 1.5; PROTHROMBIN TIME (PATIENT) 15.3 SECONDS (9.5-12.1)
[2019-05-11 19:13] LABS: ALB/GLOB RATIO 0.9 (1.1-1.8); ALBUMIN 2.7 g/dL (4.0-5.0); BILIRUBIN,TOTAL 1.2 mg/dL (0.2-1.0); TOTAL PROTEIN 5.8 g/dL (6.6-8.7)
[2019-05-11 19:15] LABS: ABSOLUTE NEUTROPHIL COUNT 9.06
[2019-05-11 19:17] LABS: PLATELET ESTIMATE DECREASED (NORMAL)
[2019-05-11 19:21] LABS: PLATELET COUNT 57 K/uL (130-400)
[2019-05-11] MEDS ORDERED: VANCOMYCIN HCL 2,000 MG in 0.9 % SODIUM CHLORIDE 500ML 500 ML IVPB SCH (20:00)
[2019-05-11] MEDS: ATORVASTATIN 20 MG TABLET PO SCH (22:59)
[2019-05-11] MEDS: GABAPENTIN 300 MG CAPSULE PO SCH (23:00)
[2019-05-11] MEDS: OXYCODONE HCL 5 MG TABLET PO PRN (23:00)
[2019-05-11] MEDS: LEVEMIR FLEXTOUCH 100 UNIT/ML INSULIN PEN SQ SCH (23:02)
[2019-05-11] MEDS: 0.9 % SODIUM CHLORIDE 10ML SYR IVP PRN (23:17)
[2019-05-11] MEDS: HEPARIN SODIUM FLUSH 100 UNITS/ML SYR 5ML IV PRN (23:17)
[2019-05-11] MEDS ORDERED: LACTULOSE 20 GM/30 ML UDC PO ONE (23:25)
[2019-05-12] MEDS: HEPARIN SODIUM FLUSH 100 UNITS/ML SYR 5ML IV PRN ×3 (06:13→23:00)
[2019-05-12] MEDS: 0.9 % SODIUM CHLORIDE 10ML SYR IVP PRN ×3 (06:13→23:01)
[2019-05-12] MEDS: LEVOTHYROXINE SODIUM 75 MCG TABLET PO SCH (06:38)
[2019-05-12] MEDS: LACTULOSE 20 GM/30 ML UDC PO SCH ×6 (06:38→22:36)
[2019-05-12] MEDS: PANTOPRAZOLE SODIUM 40 MG TABLET PO SCH (06:40)
[2019-05-12 06:43] LABS: ABSOLUTE NEUTROPHIL COUNT 8.87; HEMATOCRIT 29.3 % (35.0-47.0); MEAN CELL VOLUME 86.9 fl (81-97); MEAN CORPUSCULAR HEMOGLOBIN 26.7 pg (27-33); MEAN CORPUSCULAR HGB CONC 30.7 g/dl (32-36); MEAN PLATELET VOLUME 11.3 fl (7.4-10.4); PLATELET COUNT 73 K/uL (130-400); RED BLOOD COUNT 3.37 M/uL (3.80-5.40); RED CELL DISTRIBUTION WIDTH 17.3 % (11.5-14.5); WHITE BLOOD COUNT W/O DIFF 10.4 K/uL (4.2-12.2)
[2019-05-12 07:02] LABS: ALB/GLOB RATIO 0.8 (1.1-1.8); ALBUMIN 2.5 g/dL (4.0-5.0); BILIRUBIN,TOTAL 0.7 mg/dL (0.2-1.0); CREATININE 2.1 mg/dL (0.5-0.9); TOTAL PROTEIN 5.7 g/dL (6.6-8.7)
[2019-05-12] MEDS ORDERED: VANCOMYCIN HCL 1,000 MG in 0.9 % SODIUM CHLORIDE 250ML 250 ML IVPB SCH (08:00)
[2019-05-12] MEDS: GABAPENTIN 300 MG CAPSULE PO SCH ×3 (09:46→22:38)
[2019-05-12] MEDS: LISINOPRIL 5 MG TABLET PO SCH (09:46)
[2019-05-12] MEDS: ACETAMINOPHEN 500 MG TABLET PO PRN ×2 (09:46→23:00)
[2019-05-12] MEDS: BUMETANIDE 1 MG TABLET PO SCH (09:47)
[2019-05-12] MEDS: OXYCODONE HCL 5 MG TABLET PO PRN ×3 (09:47→23:00)
[2019-05-12] MEDS: SPIRONOLACTONE 25 MG TAB PO SCH (09:47)
[2019-05-12] MEDS: ASCORBIC ACID 500 MG TAB PO SCH (09:48)
[2019-05-12] MEDS ORDERED: METOPROLOL SUCC 25 MG TAB.ER PO SCH (10:00)
--- NOTE | 2019-05-12 12:17 | History & Physical ---
History of Present Illness - Date of Service Date of Service for History & Physical: 05/12/19 - History of Present Illness Admitting Diagnosis: Bilateral LE Cellulitis History of Present Illness: Mrs. Lemus is a 64 year-old female who presented to [facility] the evening of 05/11 for complaint of bilateral lower leg swelling, pain, and drainage. Due to her physical exam findings (cellulitis), hx of DM, she was directly admitted for IV antibiotics and inpatient management. She was recently hospitalized for elevated ammonia, she has ODEN and takes lactulose regularly. Other hx includes: ex-smoker, cardiac cath, edema, HTN, hyperlipidemia, n europathy, fatty liver disease, ulcer, cirrhosis, kidney stones, DM, hypothyroid, spinal stenosis, and anxiety. 05/12/19: CBC baseline- hgb 9.1, hct 30.0, WBC 10.1, CMP: BUN 52, Creat 2.1, GFR 25. (baseline for patient). Will obtain wound culture and start vanco 1000mg bid. Pt. is resting in bed, LE dressings changed this morning, clear fluid weeping from left LE. PCP: Dr. Reynolds Travel Screening - Travel/Exposure Within Last 30 Days Have you traveled within the last 30 days?: No - Travel/Exposure Within Last Year Have you traveled outside the [place] in the last year?: No - Additonal Travel Details Have you been exposed to anyone with a communicable illness?: No Past Medical History - SOCIAL HISTORY Smoking Status: Heavy tobacco smoker (>10/day) Alcohol Use: Heavy Alcohol Use Comment: 30 years ago drank heavily for 3 years Drug Use: None - RESPIRATORY Hx Respiratory Disorders: Yes Hx Sleep Apnea: Yes Hx of CPAP: Yes - CARDIOVASCULAR Hx Cardio Disorders: Yes Hx Cardiac Cath: Yes (no stent) Hx Edema: Yes (at night) Hx Hypertension: Yes Comment:: high cholesterol - NEURO Hx Neuro Disorders: Yes Hx Neuropathy: Yes (tingling in toes rt foot) Hx Seizures: Yes (Oct 2016 elevated ammonia levels & UTI) - GI Hx GI Disorders: Yes Hx Liver Disease: Yes (fatty liver) Hx Ulcer: Yes (on meds for-protonix) Hx Wt Loss/Wt Gain: Yes Hx Cirrhosis: Yes (ODEN) Hx of Polyps: Yes Comment:: has a little bit of varices-Dr Carvajal 12/2016-improved - Hx Genitourinary Disorders: Yes Hx Renal Disease: Yes (high ammonia levels) Comment:: over 2 years since last peroid - ENDOCRINE Hx Endocrine Disorders: Yes Hx Diabetes: Yes Hx Thyroid Disease: Yes Comment:: lately FBS 74-130 - MUSCULOSKELETAL Hx Musculoskeletal Disorders: Yes Hx Arthritis: Yes (back,ankles,hands) Hx Back Injury: Yes Comment:: spinal stenosis, herniated disk lower lumbar - PSYCH Hx Psych Problems: No Hx Anxiety: (sometimes) - HEMATOLOGY/ONCOLOGY Hx Hematology/Oncology Disorders: Yes Hx Blood Disorders: Yes (low platelet) Hx Bruising: Yes (easy to bruise from BP cuffs) Hx Blood Transfusions: No (platelets) Hx Blood Transfusion Reaction: No Comment:: last platelets were 46,000. Family Medical History Any Significant Family History?: Yes Hx Alcohol Use: Father, Mother, Brother/Sister Hx Cancer: Mother, Brother/Sister Hx Depression: Father, Mother Hx Diabetes: Brother/Sister Hx Heart Disease: Father, Brother/Sister Hx HTN: Father, Mother, Children, Brother/Sister Hx Liver Disease: Brother/Sister Hx Stroke: Grandparents H&P Meds/Allergies - Allergies Allergies: Allergies Allergy/AdvReac Type Severity Reaction Status Date / Time No Known Drug Allergies Allergy Unverified 05/11/19 16:36 - Home Medications Previous Rx's Medication Instructions Recorded Lactulose 20 gm PO QID #3600 ml 02/13/19 - Active Medications Active Medications: Current Medications Acetaminophen (Tylenol 500mg Tab) 500 mg PO Q6H PRN PRN Reason: PAIN - MILD(1-4)/FEVER Last Admin: 05/12/19 09:46 Dose: 500 mg Documented by: Ascorbic Acid (Vitamin C) 500 mg PO DAILY [facility] Last Admin: 05/12/19 09:48 Dose: 500 mg Documented by: Atorvastatin Calcium (Lipitor) 40 mg PO QHS [facility] Last Admin: 05/11/19 22:59 Dose: 40 mg Documented by: Bumetanide (Bumex) 2 mg PO DAILY [facility] Last Admin: 05/12/19 09:47 Dose: 2 mg Documented by: Gabapentin (Neurontin) 300 mg PO TID [facility] Last Admin: 05/12/19 09:46 Dose: 300 mg Documented by: Heparin Sodium (Porcine) () 500 unit IV BID PRN PRN Reason: IV FLUSH Last Admin: 05/12/19 06:38 Dose: 500 unit Documented by: Vancomycin HCl 2,000 mg/ (Sodium Chloride) 500 mls @ 500 mls/hr IVPB 1999 [facility] Stop: 05/17/19 20:01 Insulin Detemir (Levemir Flextouch) 32 unit SQ QHS [facility] Last Admin: 05/11/19 23:02 Dose: 32 unit Documented by: Lactulose (Lactulose) 20 gm PO QID [facility] Last Admin: 05/12/19 09:46 Dose: 20 gm Documented by: Levothyroxine Sodium (Synthroid) 75 mcg PO DAILYTHY [facility] Last Admin: 05/12/19 06:38 Dose: 75 mcg Documented by: Lisinopril (Zestril) 5 mg PO DAILY [facility] Last Admin: 05/12/19 09:46 Dose: 5 mg Documented by: Metoprolol Succinate (Toprol Xl) 25 mg PO QHS [facility] Oxycodone HCl (Oxy Ir) 5 mg PO TID PRN PRN Reason: PAIN - MILD TO MODERATE (1-7) Last Admin: 05/12/19 09:47 Dose: 5 mg Documented by: Pantoprazole Sodium (Protonix) 40 mg PO DAILYAC [facility] Last Admin: 05/12/19 06:40 Dose: 40 mg Documented by: Sodium Chloride () 10 ml IVP Q12H PRN PRN Reason: IV FLUSH Last Admin: 05/12/19 06:38 Dose: 10 ml Documented by: Spironolactone (Aldactone) 25 mg PO DAILY [facility] Last Admin: 05/12/19 09:47 Dose: 25 mg Documented by: Zinc Oxide (Desitin) 10 gm TOP ASDIR PRN PRN Reason: RASH Physical Exam - Vital Signs Vital Signs: Vital Signs - Last 24 Hrs Temp Pulse Pulse Resp BP BP BP 05/12/19 09:20 100.2 F H 99 H 22 111/50 05/12/19 09:00 99 H 22 05/12/19 00:01 98.1 F 75 20 135/40 05/11/19 18:40 97.9 F 77 16 137/77 137/61 137/61 Pulse Ox 05/12/19 09:20 100 05/12/19 09:00 05/12/19 00:01 100 05/11/19 18:40 100 - General General Appearance: Alert, Oriented x3, Cooperative, No acute distress Limitations: Physical limitation (morbid obesity) - Head Head exam: Normal inspection Head exam detail: negative: Abrasion, Contusion - Eye Eye exam: Normal appearance, PERRL Pupils: Normal accommodation - ENT ENT exam: Normal exam, Mucous membranes moist, Normal external ear exam, Normal orophraynx, TM's normal bilaterally Ear exam: Normal external inspection. negative: External canal tenderness Nasal Exam: Normal inspection. negative: Discharge, Sinus tenderness Mouth exam: Normal external inspection, Tongue normal Teeth exam: Normal inspection. negative: Dental caries Throat exam: Normal inspection. negative: Tonsillar erythema, Tonsillar exudate - Neck Neck exam: Normal inspection, Full ROM. negative: Tenderness - Respiratory Respiratory exam: Normal lung sounds bilaterally. negative: Respiratory distres s - Cardiovascular Cardiovascular Exam: Regular rate, Normal rhythm, Normal heart sounds - GI/Abdominal GI/Abdominal exam: Soft, Normal bowel sounds. negative: Tenderness - Rectal Rectal exam: Deferred - exam: Deferred - Extremities Extremities exam: Other (bilateral LE edema, pitting from feet to knees) - Back Back exam: Reports: Normal inspection, Full ROM. Denies: Muscle spasm, Rash noted, Tenderness - Neurological Neurological exam: Alert, Normal gait, Oriented X3 - Psychiatric Psychiatric exam: Normal affect, Normal mood - Skin Skin exam: Erythema (bilateral LE- mid calf), Pallor, Warm Results - Labs Result Diagrams: 05/12/19 06:12 05/12/19 06:12 Labs Last 24 Hours: Laboratory Results - last 24 hr 05/11/19 05/11/19 05/11/19 18:31 18:50 18:50 WBC Cancelled 10.1 Corrected WBC Cancelled RBC Cancelled 3.46 L Hgb Cancelled 9.1 L Hct Cancelled 30.0 L MCV Cancelled 86.7 MCH Cancelled 26.3 L MCHC Cancelled 30.3 L RDW Cancelled 17.4 H Plt Count Cancelled 57 L MPV Cancelled 11.0 H Gran % Cancelled Neutrophils % Cancelled 90.0 H Band Neutrophils % Cancelled Lymphocytes % Cancelled Supervisor Drying And Softening Monocytes % Cancelled Supervisor Drying And Softening Eosinophils % Cancelled Supervisor Drying And Softening Basophils % Cancelled Supervisor Drying And Softening Absolute Neutrophils Cancelled 9.06 Lymphocytes Cancelled 6.0 L Monocytes Cancelled 4.0 Basophils Cancelled Metamyelocytes Cancelled Myelocytes Cancelled Promyelocytes Cancelled Nucleated RBCs Cancelled Differential Comment Cancelled Hypersegmented Polys Cancelled Plasma Cells Cancelled Other Cell Type Cancelled Toxic Granulation Cancelled Dohle Bodies Cancelled Genesis Rods Cancelled Platelet Estimate Cancelled Decreased RBC Morphology Cancelled Normal Polychromasia Cancelled Hypochromasia Cancelled Poikilocytosis Cancelled Basophilic Stippling Cancelled Anisocytosis Cancelled Microcytosis Cancelled Macrocytosis Cancelled Spherocytes Cancelled Sickle Cells Cancelled Target Cells Cancelled Tear Drop Cells Cancelled Ovalocytes Cancelled Stomatocytes Cancelled Helmet Cells Cancelled [place] Bodies Cancelled [place] Rings Cancelled Dolores Cells Cancelled Acanthocytes (Spur) Cancelled Rouleaux Cancelled Schistocytes Cancelled Morphology Comment Cancelled Eosinophil Count Cancelled PT INR Sodium 134 L Potassium 4.8 H Chloride 105 Carbon Dioxide 17.0 L Anion Gap 12.0 BUN 50 H Creatinine 2.0 H Estimated GFR 27 POC Glucose Random Glucose 130 H Calcium 8.6 L Total Bilirubin 1.20 H AST 23 ALT 24 Alkaline Phosphatase 98 Ammonia Cancelled Total Protein 5.8 L Albumin 2.7 L Globulin 3.1 Albumin/Globulin Ratio 0.9 L 05/11/19 05/11/19 05/11/19 18:50 18:53 22:59 WBC Corrected WBC RBC Hgb Hct MCV MCH MCHC RDW Plt Count MPV Gran % Neutrophils % Band Neutrophils % Lymphocytes % Monocytes % Eosinophils % Basophils % Absolute Neutrophils Lymphocytes Monocytes Basophils Metamyelocytes Myelocytes Promyelocytes Nucleated RBCs Differential Comment Hypersegmented Polys Plasma Cells Other Cell Type Toxic Granulation Dohle Bodies Genesis Rods Platelet Estimate RBC Morphology Polychromasia Hypochromasia Poikilocytosis Basophilic Stippling Anisocytosis Microcytosis Macrocytosis Spherocytes Sickle Cells Target Cells Tear Drop Cells Ovalocytes Stomatocytes Helmet Cells [place] Bodies [place] Rings Dolores Cells Acanthocytes (Spur) Rouleaux Schistocytes Morphology Comment Eosinophil Count PT 15.3 H INR 1.5 Sodium Potassium Chloride Carbon Dioxide Anion Gap BUN Creatinine Estimated GFR POC Glucose 186 H Random Glucose Calcium Total Bilirubin AST ALT Alkaline Phosphatase Ammonia 41 Total Protein Albumin Globulin Albumin/Globulin Ratio 05/12/19 05/12/19 06:12 06:12 WBC 10.4 Corrected WBC RBC 3.37 L Hgb 9.0 L Hct 29.3 L MCV 86.9 MCH 26.7 L MCHC 30.7 L RDW 17.3 H Plt Count 73 L MPV 11.3 H Gran % Neutrophils % 85.0 H Band Neutrophils % 0.0 Lymphocytes % Monocytes % Eosinophils % Not Reportable Basophils % Not Reportable Absolute Neutrophils 8.87 Lymphocytes 8.0 L Monocytes 6.0 Basophils 0.0 Metamyelocytes Myelocytes Promyelocytes Nucleated RBCs Differential Comment Hypersegmented Polys Plasma Cells Other Cell Type Toxic Granulation Dohle Bodies Genesis Rods Platelet Estimate RBC Morphology Polychromasia Hypochromasia Poikilocytosis Basophilic Stippling Anisocytosis Microcytosis Macrocytosis Spherocytes Sickle Cells Target Cells Tear Drop Cells Ovalocytes Stomatocytes Helmet Cells [place] Bodies [place] Rings Dolores Cells Acanthocytes (Spur) Rouleaux Schistocytes Morphology Comment Eosinophil Count 1.0 PT INR Sodium 136 Potassium 4.8 H Chloride 107 Carbon Dioxide 16.0 L Anion Gap 13.0 BUN 52 H Creatinine 2.1 H Estimated GFR 25 POC Glucose Random Glucose 151 H Calcium 8.6 L Total Bilirubin 0.70 AST 19 ALT 21 Alkaline Phosphatase 118 H Ammonia Total Protein 5.7 L Albumin 2.5 L Globulin 3.2 Albumin/Globulin Ratio 0.8 L VTE H&P Assessment - Risk for VTE Risk for VTE: Yes Risk Level: Low Risk Assessment Date: 05/12/19 Risk Assessment Time: 12:24 VTE Orders Placed or Will Be Placed: No VTE Reason for No Prophylaxis: Contraindicated (hx ITP) Plan - Inpatient Certification Inpatient Certification: Admit to inpatient care: Based on my medical assessment, after consideration of patient's risk factors (age, co-morbidities and patient presenting symptoms and acuity), I expect that this patient will remain in the hospital greater than or equal to two midnights and that the services needed warrant inpatient care because: Patient Risk Factors: [Age, co-morbidities] Estimated length of stay: [48-96 hours] The patient may reasonably be expected to be discharged or transferred to a hospital within 96 hours after admission to [facility]. Services needed: [IV abx, lab monitoring] Post hospital care (if known): [] I certify that my determination is in accordance with my understanding of Medicare requirements for reasonable and necessary inpatient services. 05/12/19 12:24 - Detailed Diagnosis and Plan (1) Bilateral lower leg cellulitis Current Visit: Yes Status: Acute Base Code: L03.116 - CELLULITIS OF LEFT LOWER LIMB; L03.115 - CELLULITIS OF RIGHT LOWER LIMB Comment: 05/12/19: -Wound culture obtained and pending -vanco 1g q12h -dressing changes qshift, elevate LE above heart level (2) ODEN (nonalcoholic steatohepatitis) Current Visit: No Status: Acute Base Code: K75.81 - NONALCOHOLIC STEATOHEPATITIS (ODEN) Comment: 05/12/19: - continue home regimen of lactulose, continue to monitor labs - Continue monitoring stool output, goal 2-3 soft stools daily. (3) DVT prophylaxis Current Visit: No Status: Acute Base Code: IXS9341 - Comment: 05/12/19: - No pharmacological therapy - Lovenox contraindicated with chronic ITP - SCD's while in bed - encouraged ambulation (4) DNR (do not resuscitate) Current Visit: No Status: Acute Base Code: Z66 - DO NOT RESUSCITATE Comment: 05/12/19: -Pt. is a DNR -form updated for chart
[2019-05-12] MEDS ORDERED: VANCOMYCIN HCL 2,000 MG in 0.9 % SODIUM CHLORIDE 500ML 500 ML IVPB SCH (20:00)
[2019-05-12] MEDS: ATORVASTATIN 20 MG TABLET PO SCH (22:37)
[2019-05-12] MEDS: METOPROLOL SUCC 25 MG TAB.ER PO SCH (22:37)
[2019-05-12] MEDS: LEVEMIR FLEXTOUCH 100 UNIT/ML INSULIN PEN SQ SCH (22:39)
[2019-05-13] MEDS: LEVOTHYROXINE SODIUM 75 MCG TABLET PO SCH (06:36)
[2019-05-13] MEDS: LACTULOSE 20 GM/30 ML UDC PO SCH ×4 (06:36→17:25)
[2019-05-13] MEDS: PANTOPRAZOLE SODIUM 40 MG TABLET PO SCH (06:36)
[2019-05-13] MEDS: 0.9 % SODIUM CHLORIDE 10ML SYR IVP PRN ×2 (07:25→19:43)
[2019-05-13] MEDS: HEPARIN SODIUM FLUSH 100 UNITS/ML SYR 5ML IV PRN ×2 (07:25→19:43)
[2019-05-13 07:40] LABS: HEMATOCRIT 28.3 % (35.0-47.0); HEMOGLOBIN 8.7 gm/dl (11.6-16.0); MEAN CELL VOLUME 87.3 fl (81-97); MEAN CORPUSCULAR HGB CONC 30.7 g/dl (32-36); MEAN PLATELET VOLUME 11.4 fl (7.4-10.4); PLATELET COUNT 88 K/uL (130-400); RED BLOOD COUNT 3.24 M/uL (3.80-5.40); RED CELL DISTRIBUTION WIDTH 17.3 % (11.5-14.5); WHITE BLOOD COUNT W/O DIFF 14.7 K/uL (4.2-12.2)
[2019-05-13 07:41] LABS: MEAN CORPUSCULAR HEMOGLOBIN 26.8 pg (27-33)
[2019-05-13 07:54] LABS: ALB/GLOB RATIO 0.8 (1.1-1.8); ALBUMIN 2.5 g/dL (4.0-5.0); BILIRUBIN,TOTAL 0.7 mg/dL (0.2-1.0); CREATININE 2.2 mg/dL (0.5-0.9); PLATELET ESTIMATE DECREASED (NORMAL); TOTAL PROTEIN 5.5 g/dL (6.6-8.7)
[2019-05-13] MEDS ORDERED: PIPERACILLIN SODIUM/TAZOBACTAM 3.375 GM in 0.9 % SODIUM CHLORIDE 100ML 100 ML IVPB SCH (08:45)
[2019-05-13] MEDS: OXYCODONE HCL 5 MG TABLET PO PRN ×3 (09:20→23:56)
[2019-05-13] MEDS: PIPERACILLIN SODIUM/TAZOBACTAM 3.375 GM in 0.9 % SODIUM CHLORIDE 100ML 100 ML IVPB SCH ×2 (10:08→17:24)
[2019-05-13] MEDS: GABAPENTIN 300 MG CAPSULE PO SCH ×3 (10:13→22:15)
[2019-05-13] MEDS: BUMETANIDE 1 MG TABLET PO SCH (10:13)
[2019-05-13] MEDS: ASCORBIC ACID 500 MG TAB PO SCH (10:13)
[2019-05-13] MEDS: LISINOPRIL 5 MG TABLET PO SCH (10:13)
[2019-05-13] MEDS: SPIRONOLACTONE 25 MG TAB PO SCH (10:13)
--- NOTE | 2019-05-13 12:07 | Physician Progress Note ---
Subjective - Date Date of Physician Progress Note: 05/13/19 - Subjective Subjective Comment: 05/13/19: Changed from vanco to zosyn this am, redness slightly worse than yesterday. Labs unchanged, VSS. Objective - Vital Signs Vital Signs: Vital Signs - Last 24 Hrs Temp Pulse Resp BP Pulse Ox 05/13/19 09:30 98.5 F 83 20 108/47 100 05/12/19 20:47 98.5 F 97 H 20 120/48 100 - General General Appearance: Alert, Oriented x3, Cooperative, No acute distress Limitations: Physical limitation (morbid obesity) - Head Head exam: Normal inspection Head exam detail: negative: Abrasion, Contusion - Eye Eye exam: Normal appearance, PERRL Pupils: Normal accommodation - ENT ENT exam: Normal exam, Mucous membranes moist, Normal external ear exam, Normal orophraynx, TM's normal bilaterally Ear exam: Normal external inspection. negative: External canal tenderness Nasal Exam: Normal inspection. negative: Discharge, Sinus tenderness Mouth exam: Normal external inspection, Tongue normal Teeth exam: Normal inspection. negative: Dental caries Throat exam: Normal inspection. negative: Tonsillar erythema, Tonsillar exudate - Neck Neck exam: Normal inspection, Full ROM. negative: Tenderness - Respiratory Respiratory exam: Normal lung sounds bilaterally. negative: Respiratory distress - Cardiovascular Cardiovascular Exam: Regular rate, Normal rhythm, Normal heart sounds - GI/Abdominal GI/Abdominal exam: Soft, Normal bowel sounds. negative: Tenderness - Rectal Rectal exam: Deferred - exam: Deferred - Extremities Extremities exam: Other (bilateral LE edema, pitting from feet to knees) - Back Back exam: Reports: Normal inspection, Full ROM. Denies: Muscle spasm, Rash noted, Tenderness - Neurological Neurological exam: Alert, Normal gait, Oriented X3 - Psychiatric Psychiatric exam: Normal affect, Normal mood - Skin Skin exam: Erythema (bilateral LE- mid calf), Pallor, Warm Assessment and Plan - Assessment and Plan (1) Bilateral lower leg cellulitis Current Visit: Yes Status: Acute Base Code: L03.116 - CELLULITIS OF LEFT LOWER LIMB; L03.115 - CELLULITIS OF RIGHT LOWER LIMB Comment: 05/13/19: -Wound culture obtained and pending -zosyn 3.375mg q8h -dressing changes qshift, elevate LE above heart level (2) ODEN (nonalcoholic steatohepatitis) Current Visit: No Status: Acute Base Code: K75.81 - NONALCOHOLIC STEATOHEPATITIS (ODEN) Comment: 05/13/19: - continue home regimen of lactulose, continue to monitor labs - Continue monitoring stool output, goal 2-3 soft stools daily. (3) DVT prophylaxis Current Visit: No Status: Acute Base Code: [id number] - Comment: 05/13/19: - No pharmacological therapy - Lovenox contraindicated with chronic ITP - SCD's while in bed - encouraged ambulation (4) DNR (do not resuscitate) Current Visit: No Status: Acute Base Code: Z66 - DO NOT RESUSCITATE Comment: 05/13/19: -Pt. is a DNR -form updated for chart Results - Labs Result Diagrams: 05/13/19 07:20 05/13/19 07:20 Labs Last 24 Hours: Laboratory Results - last 24 hr 05/12/19 05/13/19 05/13/19 22:45 07:20 07:20 WBC 14.7 H RBC 3.24 L Hgb 8.7 L Hct 28.3 L MCV 87.3 MCH 26.8 L MCHC 30.7 L RDW 17.3 H Plt Count 88 L MPV 11.4 H Neutrophils % 85.0 H Eosinophils % Not Reportable Basophils % Not Reportable Absolute Neutrophils 12.50 Lymphocytes 8.0 L Monocytes 6.0 Platelet Estimate Decreased RBC Morphology Normal Eosinophil Count 1.0 Sodium 135 L Potassium 4.5 Chloride 106 Carbon Dioxide 15.0 L Anion Gap 14.0 BUN 56 H Creatinine 2.2 H Estimated GFR 24 POC Glucose 169 H Random Glucose 112 H Calcium 8.4 L Total Bilirubin 0.70 AST 18 ALT 19 Alkaline Phosphatase 107 H Total Protein 5.5 L Albumin 2.5 L Globulin 3.0 Albumin/Globulin Ratio 0.8 L DVT/PE Assessment - Risk for VTE Risk for VTE: No Risk Level: Low Risk Assessment Date: 05/12/19 Risk Assessment Time: 12:24 VTE Orders Placed or Will Be Placed: No VTE Reason for No Prophylaxis: Contraindicated (hx ITP) - Active Medicaitons Current Medications: Current Medications Acetaminophen (Tylenol 500mg Tab) 500 mg PO Q6H PRN PRN Reason: PAIN - MILD(1-4)/FEVER Last Admin: 05/12/19 23:00 Dose: 500 mg Documented by: Ascorbic Acid (Vitamin C) 500 mg PO DAILY [facility] Last Admin: 05/13/19 10:13 Dose: 500 mg Documented by: Atorvastatin Calcium (Lipitor) 40 mg PO QHS [facility] Last Admin: 05/12/19 22:37 Dose: 40 mg Documented by: Bumetanide (Bumex) 2 mg PO DAILY [facility] Last Admin: 05/13/19 10:13 Dose: 2 mg Documented by: Gabapentin (Neurontin) 300 mg PO TID [facility] Last Admin: 05/13/19 10:13 Dose: 300 mg Documented by: Heparin Sodium (Porcine) () 500 unit IV BID PRN PRN Reason: IV FLUSH Last Admin: 05/13/19 07:25 Dose: 500 unit Documented by: Piperacillin Sod/Tazobactam (Sod 3.375 gm/ Sodium Chloride) 100 mls @ 33.333 mls/hr IVPB Q8H [facility] Last Admin: 05/13/19 10:08 Dose: 33.333 mls/hr Documented by: Insulin Detemir (Levemir Flextouch) 32 unit SQ QHS [facility] Last Admin: 05/12/19 22:39 Dose: 32 unit Documented by: Lactulose (Lactulose) 20 gm PO 0600,1000,1400,1800 [facility] Last Admin: 05/13/19 10:14 Dose: 20 gm Documented by: Levothyroxine Sodium (Synthroid) 75 mcg PO DAILYTHY [facility] Last Admin: 05/13/19 06:36 Dose: 75 mcg Documented by: Lisinopril (Zestril) 5 mg PO DAILY [facility] Last Admin: 05/13/19 10:13 Dose: 5 mg Documented by: Metoprolol Succinate (Toprol Xl) 25 mg PO QHS [facility] Last Admin: 05/12/19 22:37 Dose: 25 mg Documented by: Oxycodone HCl (Oxy Ir) 5 mg PO TID PRN PRN Reason: PAIN - MILD TO MODERATE (1-7) Last Admin: 05/13/19 09:20 Dose: 5 mg Documented by: Pantoprazole Sodium (Protonix) 40 mg PO DAILYAC [facility] Last Admin: 05/13/19 06:36 Dose: 40 mg Documented by: Sodium Chloride () 10 ml IVP Q12H PRN PRN Reason: IV FLUSH Last Admin: 07/28/19 07:25 Dose: 10 ml Documented by: Spironolactone (Aldactone) 25 mg PO DAILY [facility] Last Admin: 05/13/19 10:13 Dose: 25 mg Documented by: Zinc Oxide (Desitin) 10 gm TOP ASDIR PRN PRN Reason: RASH AMI Plan - Labs Result Diagrams: 05/13/19 07:20 05/13/19 07:20
[2019-05-13] MEDS ORDERED: NYSTATIN 15 GM POWDER TP ONE (18:20)
[2019-05-13] MEDS: ACETAMINOPHEN 500 MG TABLET PO PRN (19:00)
[2019-05-13] MEDS: ATORVASTATIN 20 MG TABLET PO SCH (22:14)
[2019-05-13] MEDS: METOPROLOL SUCC 25 MG TAB.ER PO SCH (22:15)
[2019-05-13] MEDS: LEVEMIR FLEXTOUCH 100 UNIT/ML INSULIN PEN SQ SCH (22:15)
[2019-05-13] MEDS: ZINC OXIDE 28.35 GM TUBE TOP PRN (22:25)
[2019-05-14] MEDS: PIPERACILLIN SODIUM/TAZOBACTAM 3.375 GM in 0.9 % SODIUM CHLORIDE 100ML 100 ML IVPB SCH ×5 (01:19→18:33)
[2019-05-14] MEDS: HEPARIN SODIUM FLUSH 100 UNITS/ML SYR 5ML IV PRN (04:15)
[2019-05-14] MEDS: LACTULOSE 20 GM/30 ML UDC PO SCH ×4 (06:33→20:24)
[2019-05-14] MEDS: LEVOTHYROXINE SODIUM 75 MCG TABLET PO SCH (06:34)
[2019-05-14] MEDS: PANTOPRAZOLE SODIUM 40 MG TABLET PO SCH (06:34)
[2019-05-14 08:15] LABS: ALB/GLOB RATIO 0.8 (1.1-1.8); ALBUMIN 2.1 g/dL (4.0-5.0); BILIRUBIN,TOTAL 0.6 mg/dL (0.2-1.0); CREATININE 2.8 mg/dL (0.5-0.9); TOTAL PROTEIN 4.9 g/dL (6.6-8.7)
[2019-05-14 08:19] LABS: ABSOLUTE NEUTROPHIL COUNT 5.58; BASO % 0.1 % (0-6); EOS % 1.4 % (0-6); GRAN % 79.4 % (47-80); HEMATOCRIT 25.4 % (35.0-47.0); LYMPH % 10.4 % (16-45); MEAN CELL VOLUME 87.6 fl (81-97); MEAN CORPUSCULAR HGB CONC 30.7 g/dl (32-36); MEAN PLATELET VOLUME 11.7 fl (7.4-10.4); MONO % 8.7 % (0-9); RED CELL DISTRIBUTION WIDTH 17.2 % (11.5-14.5)
[2019-05-14 08:21] LABS: HEMOGLOBIN 7.8 gm/dl (11.6-16.0); MEAN CORPUSCULAR HEMOGLOBIN 26.8 pg (27-33); PLATELET COUNT 64 K/uL (130-400)
--- NOTE | 2019-05-14 10:00 | Physician Progress Note ---
Subjective - Date Date of Physician Progress Note: 05/14/19 - Subjective Subjective Comment: 05/13/19: Changed from vanco to zosyn this am, redness slightly worse than yesterday. Labs unchanged, VSS. 05/14/19: Preliminary wound culture results received: pos pseudomonas, staph aureus, enterococcus faecalis, and aerococcus urinae. Added zyvox to cover staph aureus. Sensitivities in progress. Redness slightly improved from yesterday (skin marker border). Pt. reports improved pain. VSS. Hgb decreased to 7.8, platelets 64- will continue to monitor. Objective - Vital Signs Vital Signs: Vital Signs - Last 24 Hrs Temp Pulse Resp BP Pulse Ox 05/13/19 23:59 98.4 F 80 18 103/40 100 05/13/19 17:00 99.8 F H 84 16 110/51 100 - General General Appearance: Alert, Oriented x3, Cooperative, No acute distress Limitations: Physical limitation (morbid obesity) - Head Head exam: Normal inspection Head exam detail: negative: Abrasion, Contusion - Eye Eye exam: Normal appearance, PERRL Pupils: Normal accommodation - ENT ENT exam: Normal exam, Mucous membranes moist, Normal external ear exam, Normal orophraynx, TM's normal bilaterally Ear exam: Normal external inspection. negative: External canal tenderness Nasal Exam: Normal inspection. negative: Discharge, Sinus tenderness Mouth exam: Normal external inspection, Tongue normal Teeth exam: Normal inspection. negative: Dental caries Throat exam: Normal inspection. negative: Tonsillar erythema, Tonsillar exudate - Neck Neck exam: Normal inspection, Full ROM. negative: Tenderness - Respiratory Respiratory exam: Normal lung sounds bilaterally. negative: Respiratory distress - Cardiovascular Cardiovascular Exam: Regular rate, Normal rhythm, Normal heart sounds - GI/Abdominal GI/Abdominal exam: Soft, Normal bowel sounds. negative: Tenderness - Rectal Rectal exam: Deferred - exam: Deferred - Extremities Extremities exam: Other (bilateral LE edema, pitting from feet to knees) - Back Back exam: Reports: Normal inspection, Full ROM. Denies: Muscle spasm, Rash noted, Tenderness - Neurological Neurological exam: Alert, Normal gait, Oriented X3 - Psychiatric Psychiatric exam: Normal affect, Normal mood - Skin Skin exam: Erythema (bilateral LE- mid calf), Pallor, Warm Assessment and Plan - Assessment and Plan (1) Bilateral lower leg cellulitis Current Visit: Yes Status: Acute Base Code: L03.116 - CELLULITIS OF LEFT LOWER LIMB; L03.115 - CELLULITIS OF RIGHT LOWER LIMB Comment: 05/14/19: -Preliminary wound culture results received: pos pseudomonas, staph aureus, enterococcus faecalis, and aerococcus urinae. Added zyvox to cover staph aureus. Sensitivities in progress. -zosyn 3.375mg q8h -dressing changes qshift, elevate LE above heart level (2) ODEN (nonalcoholic steatohepatitis) Current Visit: No Status: Acute Base Code: K75.81 - NONALCOHOLIC STEATOHEPATITIS (ODEN) Comment: 05/14/19: - continue home regimen of lactulose, continue to monitor labs - Continue monitoring stool output, goal 2-3 soft stools daily. (3) DVT prophylaxis Current Visit: No Status: Acute Base Code: [id number] - Comment: 05/14/19: - No pharmacological therapy - Lovenox contraindicated with chronic ITP - encouraged ambulation (4) DNR (do not resuscitate) Current Visit: No Status: Acute Base Code: Z66 - DO NOT RESUSCITATE Comment: 05/14/19: -Pt. is a DNR -form updated for chart Results - Labs Result Diagrams: 05/14/19 07:45 05/14/19 07:45 Labs Last 24 Hours: Laboratory Results - last 24 hr 05/13/19 05/13/19 05/13/19 11:45 17:00 21:41 WBC RBC Hgb Hct MCV MCH MCHC RDW Plt Count MPV Gran % Lymphocytes % Monocytes % Eosinophils % Basophils % Absolute Neutrophils Sodium Potassium Chloride Carbon Dioxide Anion Gap BUN Creatinine Estimated GFR POC Glucose 115 H 124 H 117 H Random Glucose Calcium Total Bilirubin AST ALT Alkaline Phosphatase Total Protein Albumin Globulin Albumin/Globulin Ratio 05/14/19 05/14/19 07:45 07:45 WBC 7.0 RBC 2.90 L Hgb 7.8 L Hct 25.4 L MCV 87.6 MCH 26.8 L MCHC 30.7 L RDW 17.2 H Plt Count 64 L MPV 11.7 H Gran % 79.4 Lymphocytes % 10.4 L Monocytes % 8.7 Eosinophils % 1.4 Basophils % 0.1 Absolute Neutrophils 5.58 Sodium 134 L Potassium 5.0 H Chloride 106 Carbon Dioxide 16.0 L Anion Gap 12.0 BUN 60 H Creatinine 2.8 H Estimated GFR 18 POC Glucose Random Glucose 96 Calcium 7.9 L Total Bilirubin 0.60 AST 20 ALT 18 Alkaline Phosphatase 89 Total Protein 4.9 L Albumin 2.1 L Globulin 2.8 Albumin/Globulin Ratio 0.8 L DVT/PE Assessment - Risk for VTE Risk for VTE: No Risk Level: Low Risk Assessment Date: 05/12/19 Risk Assessment Time: 12:24 VTE Orders Placed or Will Be Placed: No VTE Reason for No Prophylaxis: Contraindicated (hx ITP) - Active Medicaitons Current Medications: Current Medications Acetaminophen (Tylenol 500mg Tab) 500 mg PO Q6H PRN PRN Reason: PAIN - MILD(1-4)/FEVER Last Admin: 05/13/19 19:00 Dose: 500 mg Documented by: Ascorbic Acid (Vitamin C) 500 mg PO DAILY [facility] Last Admin: 05/13/19 10:13 Dose: 500 mg Documented by: Atorvastatin Calcium (Lipitor) 40 mg PO QHS [facility] Last Admin: 05/13/19 22:14 Dose: 40 mg Documented by: Bumetanide (Bumex) 2 mg PO DAILY [facility] Last Admin: 05/13/19 10:13 Dose: 2 mg Documented by: Gabapentin (Neurontin) 300 mg PO TID [facility] Last Admin: 05/13/19 22:15 Dose: 300 mg Documented by: Heparin Sodium (Porcine) () 500 unit IV BID PRN PRN Reason: IV FLUSH Last Admin: 05/14/19 04:15 Dose: 500 unit Documented by: Piperacillin Sod/Tazobactam (Sod 3.375 gm/ Sodium Chloride) 100 mls @ 33.333 mls/hr IVPB Q8H [facility] Last Infusion: 05/14/19 04:15 Dose: Infused Documented by: Linezolid (Zyvox) 600 mg in 300 mls @ 300 mls/hr IVPB Q12H [facility] Insulin Detemir (Levemir Flextouch) 32 unit SQ QHS [facility] Last Admin: 05/13/19 22:15 Dose: 32 unit Documented by: Lactulose (Lactulose) 20 gm PO 0600,1000,1400,1800 [facility] Last Admin: 05/14/19 06:33 Dose: 20 gm Documented by: Levothyroxine Sodium (Synthroid) 75 mcg PO DAILYTHY [facility] Last Admin: 05/14/19 06:34 Dose: 75 mcg Documented by: Lisinopril (Zestril) 5 mg PO DAILY [facility] Last Admin: 05/13/19 10:13 Dose: 5 mg Documented by: Metoprolol Succinate (Toprol Xl) 25 mg PO QHS [facility] Last Admin: 05/13/19 22:15 Dose: 25 mg Documented by: Oxycodone HCl (Oxy Ir) 5 mg PO TID PRN PRN Reason: PAIN - MILD TO MODERATE (1-7) Last Admin: 05/13/19 23:56 Dose: 5 mg Documented by: Pantoprazole Sodium (Protonix) 40 mg PO DAILYAC [facility] Last Admin: 05/14/19 06:34 Dose: 40 mg Documented by: Sodium Chloride () 10 ml IVP Q12H PRN PRN Reason: IV FLUSH Last Admin: 05/13/19 19:43 Dose: 10 ml Documented by: Spironolactone (Aldactone) 25 mg PO DAILY [facility] Last Admin: 05/13/19 10:13 Dose: 25 mg Documented by: Zinc Oxide (Desitin) 10 gm TOP ASDIR PRN PRN Reason: RASH Last Admin: 05/13/19 22:25 Dose: 10 gm Documented by: AMI Plan - Labs Result Diagrams: 05/14/19 07:45 05/14/19 07:45
[2019-05-14] MEDS: ZYVOX (LINEZOLID) 600MG/300 ML 600 MG/300 ML BAG IVPB SCH ×2 (10:24→21:52)
[2019-05-14] MEDS: LISINOPRIL 5 MG TABLET PO SCH (10:26)
[2019-05-14] MEDS: ASCORBIC ACID 500 MG TAB PO SCH (10:26)
[2019-05-14] MEDS: GABAPENTIN 300 MG CAPSULE PO SCH ×3 (10:27→21:50)
[2019-05-14] MEDS: SPIRONOLACTONE 25 MG TAB PO SCH (10:27)
[2019-05-14] MEDS: BUMETANIDE 1 MG TABLET PO SCH (10:27)
[2019-05-14] MEDS: OXYCODONE HCL 5 MG TABLET PO PRN ×2 (15:41→21:51)
[2019-05-14] MEDS: ACETAMINOPHEN 500 MG TABLET PO PRN (20:34)
[2019-05-14] MEDS: ZINC OXIDE 28.35 GM TUBE TOP PRN (21:46)
[2019-05-14] MEDS: LEVEMIR FLEXTOUCH 100 UNIT/ML INSULIN PEN SQ SCH (21:49)
[2019-05-14] MEDS: METOPROLOL SUCC 25 MG TAB.ER PO SCH (21:51)
[2019-05-14] MEDS: ATORVASTATIN 20 MG TABLET PO SCH (21:51)
[2019-05-15] MEDS: PIPERACILLIN SODIUM/TAZOBACTAM 3.375 GM in 0.9 % SODIUM CHLORIDE 100ML 100 ML IVPB SCH ×3 (03:55→18:53)
[2019-05-15] MEDS: LEVOTHYROXINE SODIUM 75 MCG TABLET PO SCH (06:22)
[2019-05-15] MEDS: LACTULOSE 20 GM/30 ML UDC PO SCH ×4 (06:22→18:53)
[2019-05-15] MEDS: PANTOPRAZOLE SODIUM 40 MG TABLET PO SCH (06:22)
[2019-05-15] MEDS: HEPARIN SODIUM FLUSH 100 UNITS/ML SYR 5ML IV PRN (06:38)
[2019-05-15] MEDS: 0.9 % SODIUM CHLORIDE 10ML SYR IVP PRN (06:38)
[2019-05-15 06:47] LABS: ABSOLUTE NEUTROPHIL COUNT 11.78; BASO % 0.1 % (0-6); EOS % 1.6 % (0-6); GRAN % 77.1 % (47-80); HEMATOCRIT 29.5 % (35.0-47.0); LYMPH % 11.6 % (16-45); MEAN CORPUSCULAR HEMOGLOBIN 26.5 pg (27-33); MEAN CORPUSCULAR HGB CONC 30.5 g/dl (32-36); MEAN PLATELET VOLUME 11.4 fl (7.4-10.4); MONO % 9.6 % (0-9); PLATELET COUNT 129 K/uL (130-400); RED BLOOD COUNT 3.39 M/uL (3.80-5.40); RED CELL DISTRIBUTION WIDTH 17.3 % (11.5-14.5); WHITE BLOOD COUNT W/O DIFF 15.3 K/uL (4.2-12.2)
[2019-05-15 07:07] LABS: ALB/GLOB RATIO 0.8 (1.1-1.8); ALBUMIN 2.3 g/dL (4.0-5.0); BILIRUBIN,TOTAL 0.5 mg/dL (0.2-1.0); CREATININE 3.4 mg/dL (0.5-0.9); TOTAL PROTEIN 5.3 g/dL (6.6-8.7)
[2019-05-15] MEDS: OXYCODONE HCL 5 MG TABLET PO PRN ×3 (07:52→21:34)
--- NOTE | 2019-05-15 09:46 | Physician Progress Note ---
Subjective - Date Date of Physician Progress Note: 05/15/19 - Subjective Subjective Comment: Nursing reports persistent LLE erythema, diffuse extension past drawn borders placed on admit. Patient reports she is feeling a little better today, LLE pain is somewhat improved but still is preventing her from using LLE for bed morbidity. BLE continue to weep L>R. Has been afebrile over the past 24 hours. Objective - Vital Signs Vital Signs: Vital Signs - Last 24 Hrs Temp Pulse Resp BP Pulse Ox 05/15/19 08:02 18 05/15/19 06:00 97.6 F 67 18 99/39 100 05/14/19 18:25 97.7 F 73 18 110/52 93 L 05/14/19 11:00 97.9 F 63 19 104/43 100 - General General Appearance: Alert, Oriented x3, Cooperative, No acute distress Limitations: Physical limitation (morbid obesity) - Head Head exam: Normal inspection Head exam detail: negative: Abrasion, Contusion - Eye Eye exam: Normal appearance, PERRL Pupils: Normal accommodation - ENT ENT exam: Normal exam, Mucous membranes moist, Normal external ear exam, Normal orophraynx, TM's normal bilaterally Ear exam: Normal external inspection. negative: External canal tenderness Nasal Exam: Normal inspection. negative: Discharge, Sinus tenderness Mouth exam: Normal external inspection, Tongue normal Teeth exam: Normal inspection. negative: Dental caries Throat exam: Normal inspection. negative: Tonsillar erythema, Tonsillar exudate - Neck Neck exam: Normal inspection, Full ROM. negative: Tenderness - Respiratory Respiratory exam: Normal lung sounds bilaterally. negative: Respiratory distress - Cardiovascular Cardiovascular Exam: Regular rate, Normal rhythm, Normal heart sounds Peripheral Pulses: 1+: Dorsalis Pedis (R), Dorsalis Pedis (L) - GI/Abdominal GI/Abdominal exam: Soft, Normal bowel sounds. negative: Tenderness - Rectal Rectal exam: Deferred - exam: Deferred - Extremities Extremities exam: Other (bilateral LE edema, 2-3+ pitting from feet to knees, large area of erythema LLE anterior and posterior leg, tender to palpation and warm to touch. Poor cap refill to bilat toes. Hyperkeratotic skin tissue to BLE R>L. Diffuse extension of light erythema to LLE past borders drawn by nursing upon admit) - Back Back exam: Reports: Normal inspection, Full ROM. Denies: Muscle spasm, Rash noted, Tenderness - Neurological Neurological exam: Alert, Normal gait, Oriented X3 - Psychiatric Psychiatric exam: Normal affect, Normal mood - Skin Skin exam: Erythema (bilateral LE- mid calf), Pallor, Warm Assessment and Plan - Assessment and Plan (1) Bilateral lower leg cellulitis Current Visit: Yes Status: Acute Base Code: L03.116 - CELLULITIS OF LEFT LOWER LIMB; L03.115 - CELLULITIS OF RIGHT LOWER LIMB Comment: 05/15/19: - WBC up today to 15.3, has been afebrile -Preliminary wound culture results received: pos pseudomonas, staph aureus, enterococcus faecalis, and aerococcus urinae. Added zyvox to cover staph aureus . Sensitivities in progress. -zosyn 3.375mg q8h, Zyvox 600mg Q 12 hrs -dressing changes qshift, elevate LE above heart level - Persistent BLE edema and weight gain 346.8-->350--> 352.6 - Hold Bumex x 2 days and add Lasix 40mg Qd x 2 days then resume Bumex - Watching renal status closely, K 5.3, BUn 66, Cr 2.8, labs in am, continue daily weights (2) ODEN (nonalcoholic steatohepatitis) Current Visit: Yes Status: Acute Base Code: K75.81 - NONALCOHOLIC STEATOHEPATITIS (ODEN) Comment: 05/15/19: - continue home regimen of lactulose, continue to monitor labs - Continue monitoring stool output, goal 2-3 soft stools daily - Appears stable at this point (3) DNR (do not resuscitate) Current Visit: No Status: Acute Base Code: Z66 - DO NOT RESUSCITATE Comment: 05/15/19: -Pt. is a DNR -form updated for chart (4) DVT prophylaxis Current Visit: No Status: Acute Base Code: [id number] - Comment: 05/15/19: - No pharmacological therapy - Lovenox contraindicated with chronic ITP - encouraged ambulation Results - Labs Result Diagrams: 05/15/19 06:26 05/15/19 06:26 Labs Last 24 Hours: Laboratory Results - last 24 hr 05/14/19 05/14/19 05/14/19 11:30 11:30 16:53 WBC RBC Hgb Hct MCV MCH MCHC RDW Plt Count MPV Gran % Lymphocytes % Monocytes % Eosinophils % Basophils % Absolute Neutrophils Sodium Potassium Chloride Carbon Dioxide Anion Gap BUN Creatinine Estimated GFR POC Glucose Cancelled 104 109 Random Glucose Calcium Total Bilirubin AST ALT Alkaline Phosphatase Total Protein Albumin Globulin Albumin/Globulin Ratio 05/14/19 05/14/19 05/14/19 17:00 21:58 22:00 WBC RBC Hgb Hct MCV MCH MCHC RDW Plt Count MPV Gran % Lymphocytes % Monocytes % Eosinophils % Basophils % Absolute Neutrophils Sodium Potassium Chloride Carbon Dioxide Anion Gap BUN Creatinine Estimated GFR POC Glucose Cancelled 129 H Cancelled Random Glucose Calcium Total Bilirubin AST ALT Alkaline Phosphatase Total Protein Albumin Globulin Albumin/Globulin Ratio 05/15/19 05/15/19 06:26 06:26 WBC 15.3 H RBC 3.39 L Hgb 9.0 L Hct 29.5 L MCV 87.0 MCH 26.5 L MCHC 30.5 L RDW 17.3 H Plt Count 129 L MPV 11.4 H Gran % 77.1 Lymphocytes % 11.6 L Monocytes % 9.6 H Eosinophils % 1.6 Basophils % 0.1 Absolute Neutrophils 11.78 Sodium 134 L Potassium 5.3 H Chloride 109 H Carbon Dioxide 14.0 L Anion Gap 11.0 BUN 66 H Creatinine 3.4 H Estimated GFR 14 POC Glucose Random Glucose 117 H Calcium 8.1 L Total Bilirubin 0.50 AST 32 ALT 20 Alkaline Phosphatase 110 H Total Protein 5.3 L Albumin 2.3 L Globulin 3.0 Albumin/Globulin Ratio 0.8 L DVT/PE Assessment - Risk for VTE Risk for VTE: No Risk Level: Low Risk Assessment Date: 05/12/19 Risk Assessment Time: 12:24 VTE Orders Placed or Will Be Placed: No VTE Reason for No Prophylaxis: Contraindicated (hx ITP) - Active Medicaitons Current Medications: Current Medications Acetaminophen (Tylenol 500mg Tab) 500 mg PO Q6H PRN PRN Reason: PAIN - MILD(1-4)/FEVER Last Admin: 05/14/19 20:34 Dose: 500 mg Documented by: Ascorbic Acid (Vitamin C) 500 mg PO DAILY [facility] Last Admin: 05/14/19 10:26 Dose: 500 mg Documented by: Atorvastatin Calcium (Lipitor) 40 mg PO QHS [facility] Last Admin: 05/14/19 21:51 Dose: 40 mg Documented by: Bumetanide (Bumex) 2 mg PO DAILY [facility] Last Admin: 05/14/19 10:27 Dose: 2 mg Documented by: Gabapentin (Neurontin) 300 mg PO TID [facility] Last Admin: 05/14/19 21:50 Dose: 300 mg Documented by: Heparin Sodium (Porcine) () 500 unit IV BID PRN PRN Reason: IV FLUSH Last Admin: 05/15/19 06:38 Dose: 500 unit Documented by: Linezolid (Zyvox) 600 mg in 300 mls @ 300 mls/hr IVPB Q12H [facility] Last Infusion: 05/14/19 23:00 Dose: Infused Documented by: Piperacillin Sod/Tazobactam (Sod 3.375 gm/ Sodium Chloride) 100 mls @ 200 mls/hr IVPB Q8H [facility] Last Infusion: 05/15/19 04:30 Dose: Infused Documented by: Insulin Detemir (Levemir Flextouch) 32 unit SQ QHS [facility] Last Admin: 05/14/19 21:49 Dose: 32 unit Documented by: Lactulose (Lactulose) 20 gm PO 0600,1000,1400,1800 [facility] Last Admin: 05/15/19 06:22 Dose: 20 gm Documented by: Levothyroxine Sodium (Synthroid) 75 mcg PO DAILYTHY [facility] Last Admin: 05/15/19 06:22 Dose: 75 mcg Documented by: Lisinopril (Zestril) 5 mg PO DAILY [facility] Last Admin: 05/14/19 10:26 Dose: 5 mg Documented by: Metoprolol Succinate (Toprol Xl) 25 mg PO QHS [facility] Last Admin: 05/14/19 21:51 Dose: 25 mg Documented by: Oxycodone HCl (Oxy Ir) 5 mg PO TID PRN PRN Reason: PAIN - MILD TO MODERATE (1-7) Last Admin: 05/15/19 07:52 Dose: 5 mg Documented by: Pantoprazole Sodium (Protonix) 40 mg PO DAILYAC [facility] Last Admin: 05/15/19 06:22 Dose: 40 mg Documented by: Sodium Chloride () 10 ml IVP Q12H PRN PRN Reason: IV FLUSH Last Admin: 05/15/19 06:38 Dose: 10 ml Documented by: Spironolactone (Aldactone) 25 mg PO DAILY [facility] Last Admin: 05/14/19 10:27 Dose: 25 mg Documented by: Zinc Oxide (Desitin) 10 gm TOP ASDIR PRN PRN Reason: RASH Last Admin: 05/14/19 21:46 Dose: 10 gm Documented by: ARMANDO Plan - Labs Result Diagrams: 05/15/19 06:26 05/15/19 06:26
[2019-05-15] MEDS: BUMETANIDE 1 MG TABLET PO SCH (10:09)
[2019-05-15] MEDS: ASCORBIC ACID 500 MG TAB PO SCH (10:10)
[2019-05-15] MEDS: LISINOPRIL 5 MG TABLET PO SCH (10:10)
[2019-05-15] MEDS: GABAPENTIN 300 MG CAPSULE PO SCH ×3 (10:10→22:52)
[2019-05-15] MEDS: SPIRONOLACTONE 25 MG TAB PO SCH (10:11)
[2019-05-15] MEDS: ZYVOX (LINEZOLID) 600MG/300 ML 600 MG/300 ML BAG IVPB SCH ×2 (10:16→22:52)
[2019-05-15] MEDS ORDERED: FUROSEMIDE IV 40MG/4ML VIAL IVP SCH (15:00)
[2019-05-15] MEDS: METOPROLOL SUCC 25 MG TAB.ER PO SCH (22:52)
[2019-05-15] MEDS: ACETAMINOPHEN 500 MG TABLET PO PRN (22:53)
[2019-05-15] MEDS: ATORVASTATIN 20 MG TABLET PO SCH (22:53)
[2019-05-15] MEDS: LEVEMIR FLEXTOUCH 100 UNIT/ML INSULIN PEN SQ SCH (22:54)
[2019-05-16] MEDS: 0.9 % SODIUM CHLORIDE 10ML SYR IVP PRN ×3 (00:07→16:50)
[2019-05-16] MEDS: HEPARIN SODIUM FLUSH 100 UNITS/ML SYR 5ML IV PRN ×3 (00:08→16:50)
[2019-05-16] MEDS: PIPERACILLIN SODIUM/TAZOBACTAM 3.375 GM in 0.9 % SODIUM CHLORIDE 100ML 100 ML IVPB SCH (03:10)
[2019-05-16] MEDS: ACETAMINOPHEN 500 MG TABLET PO PRN ×2 (04:49→13:20)
[2019-05-16] MEDS: LEVOTHYROXINE SODIUM 75 MCG TABLET PO SCH (06:16)
[2019-05-16] MEDS: PANTOPRAZOLE SODIUM 40 MG TABLET PO SCH (06:16)
[2019-05-16] MEDS: LACTULOSE 20 GM/30 ML UDC PO SCH ×3 (06:16→13:20)
[2019-05-16 06:46] LABS: ABSOLUTE NEUTROPHIL COUNT 5.51; BASO % 0.3 % (0-6); EOS % 2.4 % (0-6); HEMATOCRIT 25.8 % (35.0-47.0); HEMOGLOBIN 7.9 gm/dl (11.6-16.0); LYMPH % 10.8 % (16-45); MEAN CELL VOLUME 87.2 fl (81-97); MEAN CORPUSCULAR HGB CONC 30.6 g/dl (32-36); MEAN PLATELET VOLUME 11.2 fl (7.4-10.4); MONO % 9.5 % (0-9); RED BLOOD COUNT 2.96 M/uL (3.80-5.40); RED CELL DISTRIBUTION WIDTH 17.3 % (11.5-14.5); WHITE BLOOD COUNT W/O DIFF 7.2 K/uL (4.2-12.2)
[2019-05-16 06:52] LABS: MEAN CORPUSCULAR HEMOGLOBIN 26.6 pg (27-33)
[2019-05-16 06:53] LABS: PLATELET COUNT 84 K/uL (130-400)
[2019-05-16 07:26] LABS: ALB/GLOB RATIO 0.7 (1.1-1.8); ALBUMIN 1.9 g/dL (4.0-5.0); BILIRUBIN,TOTAL 0.4 mg/dL (0.2-1.0); CREATININE 3.9 mg/dL (0.5-0.9); TOTAL PROTEIN 4.8 g/dL (6.6-8.7)
[2019-05-16] MEDS ORDERED: SPS 15 GM/60 ML PO ONE (09:25)
--- NOTE | 2019-05-16 09:47 | Discharge Summary ---
Providers Discharge Summary Date: 05/16/19 Date of admission: 05/11/19 17:45 Attending physician: HARPREET REYNOLDS Primary care physician: HARPREET REYNOLDS Physical Exam - Vital Signs Vital Signs: Vital Signs - Last 24 Hrs Temp Pulse Resp BP BP BP Pulse Ox 05/16/19 07:30 97.5 F L 69 19 88/35 100 05/15/19 22:00 98.0 F 72 18 107/45 100 05/15/19 14:00 97.7 F 65 18 100/60 100 05/15/19 10:59 97.6 F 99/39 - General General Appearance: Alert, Oriented x3, Cooperative, No acute distress, Other (increased sleepiness but easily arousable) Limitations: Physical limitation (morbid obesity) - Head Head exam: Normal inspection Head exam detail: negative: Abrasion, Contusion - Eye Eye exam: Normal appearance, PERRL Pupils: Normal accommodation - ENT ENT exam: Normal exam, Mucous membranes moist, Normal external ear exam, Normal orophraynx, TM's normal bilaterally Ear exam: Normal external inspection. negative: External canal tenderness Nasal Exam: Normal inspection. negative: Discharge, Sinus tenderness Mouth exam: Normal external inspection, Tongue normal Teeth exam: Normal inspection. negative: Dental caries Throat exam: Normal inspection. negative: Tonsillar erythema, Tonsillar exudate - Neck Neck exam: Normal inspection, Full ROM. negative: Tenderness - Respiratory Respiratory exam: Normal lung sounds bilaterally. negative: Respiratory distress - Cardiovascular Cardiovascular Exam: Regular rate, Normal rhythm, Normal heart sounds Peripheral Pulses: 1+: Dorsalis Pedis (R), Dorsalis Pedis (L) - GI/Abdominal GI/Abdominal exam: Distended (firm, notable worsening of ascites over the past 24 hours), Other (notable worsening of ascites over the past 24 hours, there is minor skin fissuring over RLQ, orange-peel skin, right side of abdomen weeping serous fluid). negative: Tenderness - Rectal Rectal exam: Deferred - exam: Deferred - Extremities Extremities exam: Pedal edema (abdomen to toes pitting edema 2+ , 2-3+ bilat legs and feet), Other (bilateral LE edema, 2-3+ pitting from feet to knees, large area of erythema LLE anterior and posterior leg, tender to palpation and warm to touch. Poor cap refill to bilat toes. Hyperkeratotic skin tissue to BLE R>L. Diffuse extension of light erythema to LLE now resolved from yesterday. ) - Back Back exam: Reports: Normal inspection, Full ROM. Denies: Muscle spasm, Rash noted, Tenderness - Neurological Neurological exam: Alert, Normal gait, Oriented X3 - Psychiatric Psychiatric exam: Normal affect, Normal mood - Skin Skin exam: Erythema (bilateral LE- mid calf), Pallor, Warm Hospitalization - Hospitalization Admission Diagnosis: Bilateral LE Cellulitis - Problem List/Discharge Diagnosis (1) Bilateral lower leg cellulitis Status: Acute Base Code: L03.116 - CELLULITIS OF LEFT LOWER LIMB; L03.115 - CELLULITIS OF RIGHT LOWER LIMB Comment: 05/16/19: - WBC normalzed today, LLE does appear to be improved from yesterday - Final lower extremity wound cultures: pos pseudomonas, staph aureus, enterococcus faecalis, and aerococcus urinae. -zosyn 3.375mg q8h, Zyvox 600mg Q 12 hrs ( renally dosed where appropriate), Pharm D to reassess worsening GFR and will make further dose adjustments as warranted -dressing changes qshift, elevate LE above heart level - Persistent BLE edema and weight gain 346.8-->350--> 352.6-->355.14 - Hold Bumex x 2 days and add Lasix 40mg Qd x 2 days then resume Bumex- trial unsuccessful to treat volume overload - Watching renal status closely, K 5.9, BUn 72, Cr 3.9, labs in am, continue daily weights - Will need nephrologly consult and possible paracentesis. - Spoke with Dr ayala [facility] and will transfer for higher level of care requirements (2) ODEN (nonalcoholic steatohepatitis) Status: Acute Base Code: K75.81 - NONALCOHOLIC STEATOHEPATITIS (ODEN) Comment: 05/16/19: - continue home regimen of lactulose, continue to monitor labs - Continue monitoring stool output, goal 2-3 soft stools daily - Anasarca has developed over the last 24 hours, 1+ pitting edema to abdomen with areas of weeping and skin fissuring, upper legs bilat 1-2+ pitting edema, BLE and feet 2-3+ pitting edema - Has had paracentesis September 2018 - Ammonia level 56 today (3) DNR (do not resuscitate) Status: Acute Base Code: Z66 - DO NOT RESUSCITATE Comment: 05/16/19: -Pt. is a DNR -form updated for chart (4) DVT prophylaxis Status: Acute Base Code: [id number] - Comment: 05/16/19: - No pharmacological therapy - Lovenox contraindicated with chronic ITP - encouraged ambulation - Hospitalization Course Disposition: Acute Care Hospital Transfer Hospital Course: Mrs. Lemus is a 64 year-old female who presented to [facility] the evening of 05/11 for complaint of bilateral lower leg swelling, pain, and drainage. Due to her physical exam findings (cellulitis), hx of DM, she was directly admitted for IV antibiotics and inpatient management. She was recently hospitalized for elevated ammonia, she has ODEN and takes lactulose regularly. Other hx includes: ex-smoker, cardiac cath, edema, HTN, hyperlipidemia, neuropathy, fatty liver disease, ulcer, cirrhosis, kidney stones, DM, hypothyroid, spinal stenosis, and anxiety. 05/12/19: CBC baseline- hgb 9.1, hct 30.0, WBC 10.1, CMP: BUN 52, Creat 2.1, GFR 25. (baseline for patient). Will obtain wound culture and start vanco 1000mg bid. Pt. is resting in bed, LE dressings changed this morning, clear fluid weeping from left LE. 05/16/19- Over the past 24 hours has developed worsening abdominal ascites and anasarca. Feels more sleepy and has noticed upper extremity tremors this am. Renal status has significantly worsened over night, Potassium 5.9 today, Kayexelate given this am, 3rd spacing more prominent. Ammonia normal upon admit, stat draw today, no results available yet. Usual BP low 100's/45-50. Today BP 97/55, is asymptomatic. Weight slow increase since admit with 3lb increase over night. BLE cellulitis has improved over the past 24 hours, LLE less warm, erythema has receded from borders drawn on admission. WBC has normalized over night. Last urine microalbumin October 2017 and was <12. Lasix, Spironolactone, Zyvox held this am. She is going to require higher level of acuity for ADDIS on CKD and 3rd spacing. Nephrology consult and possible paracentisis needed. Will transfer to [facility] upon availability of step-down bed. PCP: Dr. Reynolds Abnormal Labs: Abnormal Lab Results 05/11/19 05/11/19 05/11/19 Range/Units 18:50 18:50 18:50 WBC (4.2-12.2) K/uL RBC 3.46 L (3.80-5.40) M/uL Hgb 9.1 L (11.6-16.0) gm/dl Hct 30.0 L (35.0-47.0) % MCH 26.3 L (27-33) pg MCHC 30.3 L (32-36) g/dl RDW 17.4 H (11.5-14.5) % Plt Count 57 L (130-400) K/uL MPV 11.0 H (7.4-10.4) fl Neutrophils % 90.0 H (47-80) % Lymphocytes % (16-45) % Monocytes % (0-9) % Lymphocytes 6.0 L (16-45) % PT 15.3 H (9.5-12.1) SECONDS Sodium 134 L (136-145) mmol/L Potassium 4.8 H (3.4-4.5) mmol/L Chloride (98-107) mmol/L Carbon Dioxide 17.0 L (22-29) mmol/L BUN 50 H (8-23) mg/dL Creatinine 2.0 H (0.5-0.9) mg/dL POC Glucose (70-110) mg/dL Random Glucose 130 H (74-109) mg/dL Calcium 8.6 L (8.8-10.2) mg/dL Total Bilirubin 1.20 H (0.2-1.0) mg/dL Alkaline Phosphatase (35-104) U/L Total Protein 5.8 L (6.6-8.7) g/dL Albumin 2.7 L (4.0-5.0) g/dL Albumin/Globulin Ratio 0.9 L (1.1-1.8) 05/11/19 05/12/19 05/12/19 Range/Units 22:59 06:12 06:12 WBC (4.2-12.2) K/uL RBC 3.37 L (3.80-5.40) M/uL Hgb 9.0 L (11.6-16.0) gm/dl Hct 29.3 L (35.0-47.0) % MCH 26.7 L (27-33) pg MCHC 30.7 L (32-36) g/dl RDW 17.3 H (11.5-14.5) % Plt Count 73 L (130-400) K/uL MPV 11.3 H (7.4-10.4) fl Neutrophils % 85.0 H (47-80) % Lymphocytes % (16-45) % Monocytes % (0-9) % Lymphocytes 8.0 L (16-45) % PT (9.5-12.1) SECONDS Sodium (136-145) mmol/L Potassium 4.8 H (3.4-4.5) mmol/L Chloride (98-107) mmol/L Carbon Dioxide 16.0 L (22-29) mmol/L BUN 52 H (8-23) mg/dL Creatinine 2.1 H (0.5-0.9) mg/dL POC Glucose 186 H (70-110) mg/dL Random Glucose 151 H (74-109) mg/dL Calcium 8.6 L (8.8-10.2) mg/dL Total Bilirubin (0.2-1.0) mg/dL Alkaline Phosphatase 118 H (35-104) U/L Total Protein 5.7 L (6.6-8.7) g/dL Albumin 2.5 L (4.0-5.0) g/dL Albumin/Globulin Ratio 0.8 L (1.1-1.8) 05/12/19 05/13/19 05/13/19 Range/Units 22:45 07:20 07:20 WBC 14.7 H (4.2-12.2) K/uL RBC 3.24 L (3.80-5.40) M/uL Hgb 8.7 L (11.6-16.0) gm/dl Hct 28.3 L (35.0-47.0) % MCH 26.8 L (27-33) pg MCHC 30.7 L (32-36) g/dl RDW 17.3 H (11.5-14.5) % Plt Count 88 L (130-400) K/uL MPV 11.4 H (7.4-10.4) fl Neutrophils % 85.0 H (47-80) % Lymphocytes % (16-45) % Monocytes % (0-9) % Lymphocytes 8.0 L (16-45) % PT (9.5-12.1) SECONDS Sodium 135 L (136-145) mmol/L Potassium (3.4-4.5) mmol/L Chloride (98-107) mmol/L Carbon Dioxide 15.0 L (22-29) mmol/L BUN 56 H (8-23) mg/dL Creatinine 2.2 H (0.5-0.9) mg/dL POC Glucose 169 H (70-110) mg/dL Random Glucose 112 H (74-109) mg/dL Calcium 8.4 L (8.8-10.2) mg/dL Total Bilirubin (0.2-1.0) mg/dL Alkaline Phosphatase 107 H (35-104) U/L Total Protein 5.5 L (6.6-8.7) g/dL Albumin 2.5 L (4.0-5.0) g/dL Albumin/Globulin Ratio 0.8 L (1.1-1.8) 05/13/19 05/13/19 05/13/19 Range/Units 11:45 17:00 21:41 WBC (4.2-12.2) K/uL RBC (3.80-5.40) M/uL Hgb (11.6-16.0) gm/dl Hct (35.0-47.0) % MCH (27-33) pg MCHC (32-36) g/dl RDW (11.5-14.5) % Plt Count (130-400) K/uL MPV (7.4-10.4) fl Neutrophils % (47-80) % Lymphocytes % (16-45) % Monocytes % (0-9) % Lymphocytes (16-45) % PT (9.5-12.1) SECONDS Sodium (136-145) mmol/L Potassium (3.4-4.5) mmol/L Chloride (98-107) mmol/L Carbon Dioxide (22-29) mmol/L BUN (8-23) mg/dL Creatinine (0.5-0.9) mg/dL POC Glucose 115 H 124 H 117 H (70-110) mg/dL Random Glucose (74-109) mg/dL Calcium (8.8-10.2) mg/dL Total Bilirubin (0.2-1.0) mg/dL Alkaline Phosphatase (35-104) U/L Total Protein (6.6-8.7) g/dL Albumin (4.0-5.0) g/dL Albumin/Globulin Ratio (1.1-1.8) 05/14/19 05/14/19 05/14/19 Range/Units 07:45 07:45 21:58 WBC (4.2-12.2) K/uL RBC 2.90 L (3.80-5.40) M/uL Hgb 7.8 L (11.6-16.0) gm/dl Hct 25.4 L (35.0-47.0) % MCH 26.8 L (27-33) pg MCHC 30.7 L (32-36) g/dl RDW 17.2 H (11.5-14.5) % Plt Count 64 L (130-400) K/uL MPV 11.7 H (7.4-10.4) fl Neutrophils % (47-80) % Lymphocytes % 10.4 L (16-45) % Monocytes % (0-9) % Lymphocytes (16-45) % PT (9.5-12.1) SECONDS Sodium 134 L (136-145) mmol/L Potassium 5.0 H (3.4-4.5) mmol/L Chloride (98-107) mmol/L Carbon Dioxide 16.0 L (22-29) mmol/L BUN 60 H (8-23) mg/dL Creatinine 2.8 H (0.5-0.9) mg/dL POC Glucose 129 H (70-110) mg/dL Random Glucose (74-109) mg/dL Calcium 7.9 L (8.8-10.2) mg/dL Total Bilirubin (0.2-1.0) mg/dL Alkaline Phosphatase (35-104) U/L Total Protein 4.9 L (6.6-8.7) g/dL Albumin 2.1 L (4.0-5.0) g/dL Albumin/Globulin Ratio 0.8 L (1.1-1.8) 05/15/19 05/15/19 05/15/19 Range/Units 06:26 06:26 22:00 WBC 15.3 H (4.2-12.2) K/uL RBC 3.39 L (3.80-5.40) M/uL Hgb 9.0 L (11.6-16.0) gm/dl Hct 29.5 L (35.0-47.0) % MCH 26.5 L (27-33) pg MCHC 30.5 L (32-36) g/dl RDW 17.3 H (11.5-14.5) % Plt Count 129 L (130-400) K/uL MPV 11.4 H (7.4-10.4) fl Neutrophils % (47-80) % Lymphocytes % 11.6 L (16-45) % Monocytes % 9.6 H (0-9) % Lymphocytes (16-45) % PT (9.5-12.1) SECONDS Sodium 134 L (136-145) mmol/L Potassium 5.3 H (3.4-4.5) mmol/L Chloride 109 H (98-107) mmol/L Carbon Dioxide 14.0 L (22-29) mmol/L BUN 66 H (8-23) mg/dL Creatinine 3.4 H (0.5-0.9) mg/dL POC Glucose 154 H (70-110) mg/dL Random Glucose 117 H (74-109) mg/dL Calcium 8.1 L (8.8-10.2) mg/dL Total Bilirubin (0.2-1.0) mg/dL Alkaline Phosphatase 110 H (35-104) U/L Total Protein 5.3 L (6.6-8.7) g/dL Albumin 2.3 L (4.0-5.0) g/dL Albumin/Globulin Ratio 0.8 L (1.1-1.8) 05/16/19 05/16/19 Range/Units 06:30 06:30 WBC (4.2-12.2) K/uL RBC 2.96 L (3.80-5.40) M/uL Hgb 7.9 L (11.6-16.0) gm/dl Hct 25.8 L (35.0-47.0) % MCH 26.6 L (27-33) pg MCHC 30.6 L (32-36) g/dl RDW 17.3 H (11.5-14.5) % Plt Count 84 L (130-400) K/uL MPV 11.2 H (7.4-10.4) fl Neutrophils % (47-80) % Lymphocytes % 10.8 L (16-45) % Monocytes % 9.5 H (0-9) % Lymphocytes (16-45) % PT (9.5-12.1) SECONDS Sodium 134 L (136-145) mmol/L Potassium 5.9 H (3.4-4.5) mmol/L Chloride 109 H (98-107) mmol/L Carbon Dioxide 16.0 L (22-29) mmol/L BUN 72 H (8-23) mg/dL Creatinine 3.9 H (0.5-0.9) mg/dL POC Glucose (70-110) mg/dL Random Glucose 111 H (74-109) mg/dL Calcium 7.8 L (8.8-10.2) mg/dL Total Bilirubin (0.2-1.0) mg/dL Alkaline Phosphatase 110 H (35-104) U/L Total Protein 4.8 L (6.6-8.7) g/dL Albumin 1.9 L (4.0-5.0) g/dL Albumin/Globulin Ratio 0.7 L (1.1-1.8) Condition at Discharge: (2) Stable Discharge Medications - Discharge Medications Home Medications: Ambulatory Orders Ergocalciferol (Vitamin D2) [Vitamin D2] 2,000 unit PO DAILY tab 11/04/15 [Last Taken 05/11/19 08:30 2000] Ascorbic Acid [Vitamin C] 500 mg PO DAILY tab 12/21/18 [Last Taken 05/11/19 08:30 500] Lactulose 20 gm PO QID #3600 ml 02/13/19 [Last Taken 05/11/19 14:00 20] Insulin Glargine,Hum.rec.anlog [Lantus] 32 unit SQ DAILY@199903/17/19 [Last Taken 05/10/19 19:30 32] Discharge Plan - Discharge Instructions Diet at Discharge: Diabetic Diet Additional Instructions: Appointment with Dr. Reynolds May 18 at 10:20am [facility]. Quality Measures - Quality Measures Quality Measures: Advance Directives, Documentation of Current Medications in Medical Record, Elder Maltreatment Screen and Follow-Up Plan, Screening for High Blood Pressure and F/U Documented - Current Medications Quality Measure: Measure #130: Documentation of Current Medications Documentation of Current Medications: <Current Medications Documented/Reviewed> [G8968] - Blood Pressure Screening Quality Measure: Screening for High Blood Pressure and Follow-Up Documented Does Patient Have Any of the Following: No Blood Pressure Classification: Normal BP Reading Systolic Measurement: 99 Diastolic Measurement: 39 Screening for High Blood Pressure: < Normal BP, F/U Not Required > [G3708] - Advance Directives Quality Measure: Measure #47: Care Plan Advance Directives Established: No Advance Directives Information Provided To Patient: Yes Advance Directives on File: No Living Will: No Power of Seat Cover Cutter: No Advance Care Planning: <Care Plan/Decision Maker Documented; Discussed & Documented> [1127F] - Elder Abuse Suspicion Index Screening: Elder Abuse Suspicion Index Screening Rely on people for bathing, dressing, shopping, banking, etc: No Prevented from getting food, clothes, medication, etc: No Made to feel shamed or threatened by someone: No Forced to sign papers or use money against will: No Feel afraid, touched in ways not wanted or hurt physically: No Poor eye contact, withdrawn, malnourished, cuts or bruises: No Screening Result: Negative result EASI Reference Information: Jennifer JOHNSON, Irvin C, Hillary D, Simon Zaman.Development and validation of a tool to assist physicians identification of elder abuse: The Elder Abuse Suspicion Index (EASI ). Journal of Elder Abuse and Neglect, 2008; 20 (3): 276-300. - Elder Maltreatment Screen Quality Measures: Elder Maltreatment Screen and Follow-Up Plan Elder Maltreatment Screen: <Negative, No Follow-Up Plan Required> [G8734]
[2019-05-16] MEDS ORDERED: FUROSEMIDE IV 40MG/4ML VIAL IVP SCH (10:00)
[2019-05-16] MEDS: ASCORBIC ACID 500 MG TAB PO SCH (10:03)
[2019-05-16] MEDS: ZYVOX (LINEZOLID) 600MG/300 ML 600 MG/300 ML BAG IVPB SCH (10:03)
[2019-05-16] MEDS: GABAPENTIN 300 MG CAPSULE PO SCH ×2 (10:03→16:04)
[2019-05-16] MEDS: OXYCODONE HCL 5 MG TABLET PO PRN ×2 (10:03→16:04)
[2019-05-16] MEDS ORDERED: PIPERACILLIN SODIUM/TAZOBACTAM 3.375 GM in 0.9 % SODIUM CHLORIDE 100ML 100 ML IVPB SCH (15:00)
== END 2019-05-16 17:00 | disposition short-term general hospital (02) | DRG 603 ==
LOC: MEDSURG 17:45
PROVIDERS: ADMIT Internal Medicine; ATTEND Internal Medicine
DX: L03.116 Cellulitis of left lower limb (principal); L03.115 Cellulitis of right lower limb; K75.81 Nonalcoholic steatohepatitis (NASH); I10 Essential (primary) hypertension; E11.9 Type 2 diabetes mellitus without complications; E03.9 Hypothyroidism, unspecified; E78.5 Hyperlipidemia, unspecified; E78.00 Pure hypercholesterolemia, unspecified; E66.01 Morbid (severe) obesity due to excess calories; M48.00 Spinal stenosis, site unspecified; G62.9 Polyneuropathy, unspecified; K76.0 Fatty (change of) liver, not elsewhere classified; K74.60 Unspecified cirrhosis of liver; F41.9 Anxiety disorder, unspecified; Z98.61 Coronary angioplasty status; Z87.891 Personal history of nicotine dependence; Z66 Do not resuscitate; Z87.442 Personal history of urinary calculi
CPT/HCPCS: 36416; 80053; 82140; 82948; 85025; 85027; 85610; 99223; 99233; 99239; J1940; J2543; J7040

== ENCOUNTER 2019-11-08 11:44 | Emergency (ER) | payer MEDICARE, OTHER ==
--- NOTE | 2019-11-08 12:08 | Emergency Department Record ---
History of Present Illness - General Chief Complaint: Wound, check Stated Complaint: LEG WOUND Time Seen by Provider: 11/08/19 11:55 Source: Patient Mode of arrival: Ambulatory Limitations: No limitations - History of Present Illness Initial Comments: The patient is here due to drainage from chronic wounds over the L lateral thigh. The patient has had a long hx of similar problems and there now are 2 areas that are seeping clear fluid and sometimes blood. The patient denies any pain, fever, chills or new trauma. She is due for dialysis today. MD Complaint: Wound re-check Onset/Timin -: Days(s) Initial Visit For: Other Returns Today for: Other Symptoms Since Prior Visit: Worsening discharge Associated Symptoms: None Treatments Prior to Arrival: Other - Related Data Home Medications Medication Instructions Recorded Confirmed Last Taken Midodrine HCl 10 mg PO DAILY 11/08/19 11/08/19 Unknown Previous Rx's Medication Instructions Recorded Cephalexin [Keflex] 500 mg PO DAILY #7 cap 11/08/19 Cephalexin [Keflex] 500 mg PO DAILY #7 cap 11/08/19 Allergies Allergy/AdvReac Type Severity Reaction Status Date / Time No Known Drug Allergies Allergy Unverified 11/07/19 07:36 Travel Screening - Travel/Exposure Within Last 30 Days Have you traveled within the last 30 days?: No Review of Systems Constitutional: Denies: Chills, Fever Eyes: Denies: Eye discharge ENT: Denies: Congestion Respiratory: Denies: Cough, Dyspnea Cardiovascular: Denies: Chest pain Past Medical History - SOCIAL HISTORY Smoking Status: Former smoker - RESPIRATORY Hx Respiratory Disorders: Yes Hx Sleep Apnea: Yes - CARDIOVASCULAR Hx Cardio Disorders: Yes Hx Cardiac Cath: Yes (no stent) Hx Edema: Yes (at night) Hx Hypertension: Yes Comment:: high cholesterol - NEURO Hx Neuro Disorders: Yes Hx Neuropathy: Yes (tingling in toes rt foot) Hx Seizures: Yes (Oct 2016 elevated ammonia levels & UTI) - GI Hx GI Disorders: Yes Hx Liver Disease: Yes (fatty liver) Hx Ulcer: Yes (on meds for-protonix) Hx Wt Loss/Wt Gain: Yes Comment:: has a little bit of varices-Dr Carvajal 12/2016-improved - Hx Genitourinary Disorders: Yes Hx Renal Disease: Yes (high ammonia levels) Comment:: over 2 years since last peroid - ENDOCRINE Hx Endocrine Disorders: Yes Hx Diabetes: Yes Hx Thyroid Disease: Yes Comment:: lately FBS 74-130 - MUSCULOSKELETAL Hx Musculoskeletal Disorders: Yes Hx Arthritis: Yes (back,ankles,hands) Hx Back Injury: Yes Comment:: spinal stenosis, herniated disk lower lumbar - PSYCH Hx Psych Problems: No Hx Anxiety: (sometimes) - HEMATOLOGY/ONCOLOGY Hx Hematology/Oncology Disorders: Yes Hx Blood Disorders: Yes (low platelet) Hx Bruising: Yes (easy to bruise from BP cuffs) Hx Blood Transfusions: No (platelets) Hx Blood Transfusion Reaction: No Comment:: last platelets were 46,000. Family Medical History Any Significant Family History?: Yes Hx Alcohol Use: Father, Mother, Brother/Sister Hx Cancer: Mother, Brother/Sister Hx Depression: Father, Mother Hx Diabetes: Brother/Sister Hx Heart Disease: Father, Brother/Sister Hx HTN: Father, Mother, Children, Brother/Sister Hx Liver Disease: Brother/Sister Hx Stroke: Grandparents Physical Exam - General General Appearance: Alert, Oriented x3, Cooperative, No acute distress - Head Head exam: Atraumatic - Eye Eye exam: Normal appearance - Neck Neck exam: Normal inspection, Full ROM. negative: Tenderness - Respiratory Respiratory exam: Normal lung sounds bilaterally. negative: Respiratory distress - Cardiovascular Cardiovascular Exam: Regular rate, Normal rhythm, Normal heart sounds - GI/Abdominal GI/Abdominal exam: Soft. negative: Tenderness - Extremities Extremities exam: negative: Normal inspection (The patient has bilateral severe edema and chronic wounds. There are 2 very superficial area's of very slight skin abrasions to the L proximal lateral thighs. Both areas are nontender with no bleeding, erythema, warmth or tenderness present. Presently they are not draining.) Course Vital Signs 11/08/19 11:50 Temperature 98.1 F Pulse Rate 101 H Respiratory 22 Rate Blood Pressure 134/55 Pulse Ox 100 - Reevaluation(s) Reevaluation #1: I did place the patient on Keflex for prophylaxis and did discuss the need for dialysis today and to keep the wound clinic appointment for tomorrow. Since the area's are not bleeding or draining now she is to keep pressure off of the area. 11/08/19 12:13 Disposition Disposition: Discharge Clinical Impression: Leg edema, left Disposition: Home, Self-Care Condition: (2) Stable Instructions: Wound Healing and Your Diet (ED) Additional Instructions: Please try to lay on your R side to take the pressure off the L side. Take the Keflex as directed and please have your dialysis today. Prescriptions: Cephalexin [Keflex] 500 mg PO DAILY #7 cap Cephalexin [Keflex] 500 mg PO DAILY #7 cap Forms: Patient Portal Access Time of Disposition: 12:06 Quality - Quality Measures Quality Measures: N/A - Blood Pressure Screening View Details: Yes Does Patient Have Any of the Following: No Blood Pressure Classification: Pre-Hypertensive BP Reading Systolic Measurement: 134 Diastolic Measurement: 55 Screening for High Blood Pressure: < Pre-Hypertensive BP, F/U Documented > [G8950] Pre-Hypertensive Follow-up Interventions: Referral to alternative/primary care provider.
== END 2019-11-08 12:44 | disposition home or self-care (01) ==
LOC: ER 11:44
DX: R60.0 Localized edema (principal); I10 Essential (primary) hypertension; Z87.891 Personal history of nicotine dependence; E11.9 Type 2 diabetes mellitus without complications
CPT/HCPCS: 99283